=== PATIENT | male | born 1985 | race Caucasian/White ===

== ENCOUNTER → 2016-06-28 | Outpatient (CLI) | payer BC ==
[2016-06-28 15:42] VITALS: BP 143/81; PULSE 88; RESP 16; TEMP 98.3; BMI 46.3
--- NOTE | 2016-06-28 16:11 | P.HPBAR ---
Bariatric H&P - History & Physicial H&P Date: 06/28/16 History & Physicial: Visit/CC: band adj Patient initial contact: Initial weight: 149.549 kg Initial weight in pounds: 329.70 Height: 5 ft 7.5 in Initial BMI: 50.8 Last weight: Current weight: 136.134 kg Current weight in pounds: 300.00 Current BMI: 46.3 [place] body weight (based on NIH guidelines): 68.492 kg Excess body weight loss: 16.6% The patient is a 31 year-old M who presents for Bariatric Assessment. The patient is requesting a fill of his LAP-BAND. He currently is hungry. Review of Systems Constitutional: Reports as per HPI Past Medical History Past Medical History: Atrial Fibrillation, Hyperlipidemia, Hypertension, Sleep Apnea/CPAP/BIPAP Additional Past Medical History / Comment(s): HX OF HTN (NO CURRENT MEDS), SLEEP APNEA (C-PAP MACHINE), History of Any Multi-Drug Resistant Organisms: None Reported Past Surgical History: Bariatric Surgery, Cardiac Ablation Additional Past Surgical History / Comment(s): 02/28/15 gastric lap banding. Past Anesthesia/Blood Transfusion Reactions: No Reported Reaction, Motion Sickness Past Psychological History: No Psychological Hx Reported Additional Psychological History / Comment(s): . Smoking Status: Never smoker Past Alcohol Use History: Rare Past Drug Use History: None Reported - Past Family History Mother Family Medical History: Cancer Additional Family Medical History / Comment(s): LUNG CANCER-. Father Family Medical History: Hyperlipidemia, Hypertension Surgical - Exam Vital Signs Temp Pulse Resp BP 98.3 F 88 16 143/81 06/28/16 15:40 06/28/16 15:40 06/28/16 15:40 06/28/16 15:40 - General well developed, no distress - Eyes PERRL - ENT normal pinna - Respiratory normal expansion - Cardiovascular Rhythm: regular - Abdomen Abdomen: soft, non tender Bariatric Assessment & Plan Plan: Patient's lap band was adjusted. He had 0.3 mL added to his band. He currently has 7 mL in the band. He'll follow-up one month. Bariatric Checklist Checklist: Plan: Checklist: EGD: 1. Hiatal hernia: 2. H. Pylori: HgbA1c: Vitamin D: Smoking: Never smoker Primary care physician referral: Psychiatry clearance: Cardiology clearance: Sleep study: Diet journal: VTE risk score: VTE risk level: Rehab needs at discharge:
== END | disposition home or self-care (01) ==
LOC: BARWHC3 15:01
PROVIDERS: ATTEND Surgery
DX: Z48.815 Encounter for surgical aftercare following surgery on the digestive system (principal); Z68.42 Body mass index [BMI] 45.0-49.9, adult; Z98.84 Bariatric surgery status; G47.30 Sleep apnea, unspecified; Z99.89 Dependence on other enabling machines and devices
CPT/HCPCS: 99212

== ENCOUNTER 2016-07-02 09:17 | Emergency (ER) | payer BC ==
[2016-07-02 09:33] VITALS: PULSE 71; TEMP 97.6
[2016-07-02] MEDS ORDERED: ONDANSETRON 4 MG/2 ML VIAL IVP STA (09:38)
[2016-07-02] MEDS ORDERED: HYDROmorphone 1 MG/ML 1 ML SYRINGE IVP STA ×2 (09:40→10:18)
[2016-07-02] MEDS ORDERED: KETOROLAC 30 MG/ML 1 ML VIAL IVP STA (09:40)
[2016-07-02] MEDS ORDERED: SODIUM CHLORIDE 0.9% 1,000 ML IV STA ×2 (09:40)
--- NOTE | 2016-07-02 09:40 | ED ---
General Adult HPI - General Chief complaint: Abdominal Pain Stated complaint: poss kidney stones Time Seen by Provider: 07/02/16 09:32 Source: patient, RN notes reviewed Mode of arrival: ambulatory Limitations: no limitations - History of Present Illness Initial comments: Patient's 31-year-old male significant past mental history for hypertension, A. fib, who presents emergency room today with chief complaint of right-sided flank pain that began approximately 3 hours ago. Patient does admit to feeling nauseated. He does admit to pain starting in the right side of his lower back radiate around to the right front over his bladder. Patient denies any history of kidney stone states they do run in the family. Patient does admit to decreased urinary flow this morning. Denies any signs of blood. Patient denies any other complaints or associated symptoms. Patient denies any recent fever, chills, shortness of breath, chest pain, numbness or tingling, hematuria , constipation or diarrhea, headaches or visual changes, or any other complaints. - Related Data Home Medications Medication Instructions Recorded Confirmed Acetaminophen Tab [Tylenol Tab] 1,000 mg PO Q6HR PRN 01/02/16 07/02/16 Ibuprofen [Motrin] 600 mg PO TID PRN 01/02/16 07/02/16 Naproxen Sodium [Aleve] 440 mg PO DAILY PRN 01/02/16 07/02/16 Previous Rx's Medication Instructions Recorded Hydrocodone/Acetaminophen [[place] 1 each PO Q6HR PRN #20 tab 07/02/16 5-325] Ibuprofen [Motrin] 800 mg PO Q6HR PRN #30 tab 07/02/16 Ondansetron Odt [Zofran ODT] 4 mg PO Q8HR PRN #20 tab 07/02/16 Sulfamethox-Tmp 800-160Mg [Bactrim 1 tab PO Q12HR #14 tab 07/02/16 DS 800-160 mg] Tamsulosin [Flomax] 0.4 mg PO DAILY #10 cap 07/02/16 Allergies Allergy/AdvReac Type Severity Reaction Status Date / Time No Known Allergies Allergy Verified 06/28/16 18:20 Review of Systems ROS Statement: Those systems with pertinent positive or pertinent negative responses have been documented in the HPI. ROS Other: All systems not noted in ROS Statement are negative. Past Medical History Past Medical History: Atrial Fibrillation, Hyperlipidemia, Hypertension, Sleep Apnea/CPAP/BIPAP Additional Past Medical History / Comment(s): HX OF HTN (NO CURRENT MEDS), SLEEP APNEA (C-PAP MACHINE), History of Any Multi-Drug Resistant Organisms: None Reported Past Surgical History: Bariatric Surgery, Cardiac Ablation Additional Past Surgical History / Comment(s): 02/28/15 gastric lap banding. Past Anesthesia/Blood Transfusion Reactions: No Reported Reaction, Motion Sickness Past Psychological History: No Psychological Hx Reported Additional Psychological History / Comment(s): . Smoking Status: Never smoker Past Alcohol Use History: None Reported Past Drug Use History: None Reported - Past Family History Mother Family Medical History: Cancer Additional Family Medical History / Comment(s): LUNG CANCER-. Father Family Medical History: Hyperlipidemia, Hypertension General Exam - General Exam Comments Initial Comments: General: The patient is awake and alert, in moderate distress. Eye: Pupils are equal, round and reactive to light, extra-ocular movements are intact. No nystagmus. There is normal conjunctiva bilaterally. No signs of icterus. Ears, nose, mouth and throat: There are moist mucous membranes and no oral lesions. Neck: The neck is supple, there is no tenderness or JVD. Cardiovascular: There is a regular rate and rhythm. No murmur, rub or gallop is appreciated. Respiratory: Lungs are clear to auscultation, respirations are non-labored, breath sounds are equal. No wheezes, stridor, rales, or rhonchi. Gastrointestinal: Normal appearance then. Normal bowel sounds. Abdomen soft on palpation. Patient does have mild tenderness superior to go over the bladder. Mild tenderness right CVA. Musculoskeletal: Normal ROM, no tenderness. Strength 5/5. Sensation intact. Pulses equal bilaterally 2+. Neurological: A&O x 3. CN II-XII intact, There are no obvious motor or sensory deficits. Coordination appears grossly intact. Speech is normal. Skin: Skin is warm and dry and no rashes or lesions are noted. Psychiatric: Cooperative, appropriate mood & affect, normal judgment. Limitations: no limitations Course Vital Signs 07/02/16 07/02/16 09:20 10:16 Temperature 97.6 F Pulse Rate 71 Respiratory 20 Rate Blood Pressure 195/107 169/82 O2 Sat by Pulse 98 Oximetry Medical Decision Making - Medical Decision Making Patient's labs reviewed. Does show rare bacteria his urine. Large amount of blood. Patient does have urine culture pending. CT reviewed and does show a 4 mm stone on the right side. Results were discussed with patient. Patient reexamined at this time is currently resting comfortably in the stretcher. His abdomen soft on palpation. Patient will be discharged home with pain medication , antibiotics to cover for possible infection and culture pending. Advised follow-up family doctor or neurologist. Advised return to emergency room if any symptoms increase or worsen. - Lab Data Result diagrams: 07/02/16 10:10 07/02/16 10:10 Lab Results 07/02/16 07/02/16 07/02/16 Range/Units 10:10 10:10 10:10 WBC 11.9 H (3.8-10.6) k/uL RBC 5.58 (4.30-5.90) m/uL Hgb 15.7 (13.0-17.5) gm/dL Hct 47.1 (39.0-53.0) % MCV 84.4 (80.0-100.0) fL MCH 28.2 (25.0-35.0) pg MCHC 33.4 (31.0-37.0) g/dL RDW 12.7 (11.5-15.5) % Plt Count 232 (150-450) k/uL Neutrophils % 86 % Lymphocytes % 9 % Monocytes % 4 % Eosinophils % 0 % Basophils % 0 % Neutrophils # 10.2 H (1.3-7.7) k/uL Lymphocytes # 1.0 (1.0-4.8) k/uL Monocytes # 0.5 (0-1.0) k/uL Eosinophils # 0.0 (0-0.7) k/uL Basophils # 0.0 (0-0.2) k/uL Sodium 143 (137-145) mmol/L Potassium 4.4 (3.5-5.1) mmol/L Chloride 107 (98-107) mmol/L Carbon Dioxide 26 (22-30) mmol/L Anion Gap 10 mmol/L BUN 10 (9-20) mg/dL Creatinine 0.98 (0.66-1.25) mg/dL Est GFR (MDRD) Af Amer >60 (>60 ml/min/1.73 sqM) Est GFR (MDRD) Non-Af >60 (>60 ml/min/1.73 sqM) Glucose 117 H (74-99) mg/dL Calcium 9.8 (8.4-10.2) mg/dL Total Bilirubin 0.9 (0.2-1.3) mg/dL AST 55 (17-59) U/L ALT 86 H (21-72) U/L Alkaline Phosphatase 89 (38-126) U/L Total Protein 7.7 (6.3-8.2) g/dL Albumin 4.6 (3.5-5.0) g/dL Amylase 55 (30-110) U/L Lipase 49 (23-300) U/L Urine Color Yellow Urine Appearance Cloudy (Clear) Urine pH 5.5 (5.0-8.0) Ur Specific [place] 1.025 (1.001-1.035) Urine Protein 1+ H (Negative) Urine Glucose (UA) Negative (Negative) Urine Ketones Trace H (Negative) Urine Blood Large H (Negative) Urine Nitrate Negative (Negative) Urine Bilirubin Negative (Negative) Urine Urobilinogen <2.0 (<2.0) mg/dL Ur Leukocyte Esterase Negative (Negative) Urine RBC >182 H (0-5) /hpf Urine WBC 4 (0-5) /hpf Urine Bacteria Rare H (None) /hpf Urine Mucus Many H (None) /hpf Disposition Clinical Impression: Kidney stone Disposition: HOME SELF-CARE Condition: Good Instructions: Kidney Stones (ED) Additional Instructions: Please use medication as discussed. Please follow-up with family doctor or urologist in the next 2 days of symptoms have not improved. Please return to emergency room if the symptoms increase or worsen or for any other concerns. Prescriptions: Hydrocodone/Acetaminophen [[place] 5-325] 1 each PO Q6HR PRN #20 tab PRN Reason: Pain Ibuprofen [Motrin] 800 mg PO Q6HR PRN #30 tab PRN Reason: Pain Ondansetron Odt [Zofran ODT] 4 mg PO Q8HR PRN #20 tab PRN Reason: Nausea Sulfamethox-Tmp 800-160Mg [Bactrim DS 800-160 mg] 1 tab PO Q12HR #14 tab Tamsulosin [Flomax] 0.4 mg PO DAILY #10 cap Referrals: Aundrea Wadsworth MD [Primary Care Provider] - 1-2 days Brett Iglesias MD [STAFF PHYSICIAN] - 1-2 days Time of Disposition: 11:33
--- NOTE | 2016-07-02 10:16 | XR ---
Abdomen HISTORY: Pain Frontal view of the abdomen on 2 images. No previous for comparison Patient is status post lap band. Lung bases are clear. No pneumoperitoneum or bowel obstruction is ev ident. No pathologic calcification is seen. IMPRESSION: Nonobstructive bowel gas pattern
[2016-07-02 10:27] LABS: Basophils % (A) 0 %; CH 28.9; CHCM 34.4; Eosinophils % (A) 0 %; HCT 47.1 % (39.0-53.0); HDW 2.74; HGB 15.7 gm/dL (13.0-17.5); Luc % (Auto) 1; Lymphocytes % (A) 9 %; MCH 28.2 pg (25.0-35.0); MCHC 33.4 g/dL (31.0-37.0); MCV 84.4 fL (80.0-100.0); Mean Platelet Volume 7.3; Monocytes # (A) 0.5 k/uL (0-1.0); Monocytes % (A) 4 %; Neutrophils # (A) 10.2 k/uL (1.3-7.7); Neutrophils % (A) 86 %; RBC 5.58 m/uL (4.30-5.90); RDW 12.7 % (11.5-15.5); WBC 11.9 k/uL (3.8-10.6); WBC (Perox) 12.16
[2016-07-02 10:36] LABS: ALT 86 U/L (21-72); AST 55 U/L (17-59); Alkaline Phosphatase 89 U/L (38-126); Amylase 55 U/L (30-110); Anion Gap 10 mmol/L; Blood Urea Nitrogen 10 mg/dL (9-20); Calcium 9.8 mg/dL (8.4-10.2); Carbon Dioxide 26 mmol/L (22-30); Chloride 107 mmol/L (98-107); Glucose 117 mg/dL (74-99); Non-African American GFR(MDRD) >60 (>60 ml/min/1.73 sqM); Potassium 4.4 mmol/L (3.5-5.1); Sodium 143 mmol/L (137-145); Total Bilirubin 0.9 mg/dL (0.2-1.3); Total Protein 7.7 g/dL (6.3-8.2)
[2016-07-02 10:41] LABS: Appearance,Urine Cloudy (Clear); Bacteria,Urine Rare /hpf; Bilirubin,Urine Negative (Negative); Glucose,Urine (UA) Negative (Negative); Ketones,Urine Trace (Negative); Leukocyte Esterase,Urine Negative (Negative); Mucus,Urine Many /hpf; Nitrite,Urine Negative (Negative); PH, Urine 5.5 (5.0-8.0); Particle Count 11245; Protein,Urine 1+ (Negative); RBC,Urine >182 /hpf (0-5); Specific Gravity,Urine 1.025 (1.001-1.035); UA Billing (MACRO vs. MICRO) MICRO; Urobilinogen,Urine <2.0 mg/dL (<2.0); WBC,Urine 4 /hpf (0-5)
--- NOTE | 2016-07-02 11:14 | CT ---
EXAMINATION TYPE: CT abdomen pelvis wo con DATE OF EXAM: 07/02/2016 11:07 AM COMPARISON: NONE INDICATION: Patient complains of right flank pain. DLP: 1257.8 mGycm, Automated exposure control for dose reduction was used. CONTRAST: None Study performed without Oral Contrast TECHNIQUE: Axial images were obtained from above the diaphragm to the pubic rami in the axial plane a t 5 mm thick sections. Reconstructed images are reviewed on the computer in the coronal plane. FINDINGS: Limited CT sections are obtained the lung bases. The lung bases are clear. Distal esophagus is prom inent air-filled. This could be dilatation of the distal esophagus from the patient's lap band. CT ABDOMEN: Liver: Normal Spleen: Normal Pancreas: Normal Adrenal glands: The adrenal glands are normal. Gallbladder: Not identified Kidneys: No masses are evident. There is a moderate right hydronephrosis and mild proximal right hydr oureter. Distal ureter extends to the urinary bladder. Urinary bladder at the right ureterovesical j unction contains a 0.4 cm calcification. No cysts are present. Aorta: Vascular calcification is within the aorta. Inferior vena cava: Normal. CT PELVIS: Loops of bowel within the abdomen and pelvis are normal. Appendix: Normal as visualized. Urinary bladder: Decompressed with limited evaluation. Genitourinary structures: Prostate is slightly prominent Osseous structures: No suspicious lytic or sclerotic lesions. IMPRESSIONS: 1. 0.4 cm right ureterovesical junction stone with mild hydroureter. There is a mild right hydroneph rosis present.
[2016-07-02 11:45] VITALS: BP 150/71; RESP 16
== END 2016-07-02 11:45 | disposition home or self-care (01) ==
LOC: EC 09:17
DX: N13.2 Hydronephrosis with renal and ureteral calculous obstruction (principal); G47.30 Sleep apnea, unspecified; Z99.89 Dependence on other enabling machines and devices; Z84.1 Family history of disorders of kidney and ureter
CPT/HCPCS: 36415; 80053; 82150; 83690; 85025; 81001; 87086; 74000; 74176; 99284; 96374; 96375 ×2; 96376; 96361; J2405; J1885; J1170

== ENCOUNTER → 2016-07-26 | Outpatient (CLI) | payer BC ==
[2016-07-26 14:31] VITALS: BP 139/73; PULSE 81; RESP 14; TEMP 98.2; BMI 45.4
--- NOTE | 2016-07-26 14:39 | P.HPBAR ---
Bariatric H&P - History & Physicial H&P Date: 07/26/16 History & Physicial: Visit/CC: band fill Patient initial contact: Initial weight: 149.549 kg Initial weight in pounds: 329.70 Height: 5 ft 7.5 in Initial BMI: 50.8 Last weight: Current weight: 133.538 kg Current weight in pounds: 294.40 Current BMI: 45.4 [place] body weight (based on NIH guidelines): 68.492 kg Excess body weight loss: 19.7% The patient is a 31 year-old M who presents for Bariatric Assessment. The patient is hungry and requesting a fill of his LAP-BAND. Past Medical History Past Medical History: Atrial Fibrillation, Hyperlipidemia, Hypertension, Sleep Apnea/CPAP/BIPAP Additional Past Medical History / Comment(s): HX OF HTN (NO CURRENT MEDS), SLEEP APNEA (C-PAP MACHINE), kidney stone June 2016, History of Any Multi-Drug Resistant Organisms: None Reported Past Surgical History: Bariatric Surgery, Cardiac Ablation, Cholecystectomy Additional Past Surgical History / Comment(s): 02/28/15 gastric lap banding. Past Anesthesia/Blood Transfusion Reactions: No Reported Reaction, Motion Sickness Past Psychological History: No Psychological Hx Reported Additional Psychological History / Comment(s): . Smoking Status: Never smoker Past Alcohol Use History: None Reported Past Drug Use History: None Reported - Past Family History Mother Family Medical History: Cancer Additional Family Medical History / Comment(s): LUNG CANCER-. Father Family Medical History: Hyperlipidemia, Hypertension Surgical - Exam Vital Signs Temp Pulse Resp BP 98.2 F 81 14 139/73 07/26/16 14:27 07/26/16 14:27 07/26/16 14:27 07/26/16 14:27 - General well developed, no distress - Eyes PERRL - ENT normal pinna - Neck no masses - Respiratory normal expansion - Cardiovascular Rhythm: regular - Abdomen Abdomen: soft, non tender Bariatric Assessment & Plan Plan: 0.3 was added to his LAP-BAND. He currently is 2.3 in the band. He will follow -up in 4 weeks. He was able drink water without difficulty. Bariatric Checklist Checklist: Plan: Checklist: EGD: 1. Hiatal hernia: 2. H. Pylori: HgbA1c: Vitamin D: Smoking: Never smoker Primary care physician referral: sivakumar mcleod Psychiatry clearance: Cardiology clearance: Sleep study: Diet journal: VTE risk score: VTE risk level: Rehab needs at discharge:
== END | disposition home or self-care (01) ==
LOC: BARWHC3 13:54
PROVIDERS: ATTEND Surgery
DX: Z48.815 Encounter for surgical aftercare following surgery on the digestive system (principal); Z68.42 Body mass index [BMI] 45.0-49.9, adult; Z98.84 Bariatric surgery status; G47.30 Sleep apnea, unspecified; Z99.89 Dependence on other enabling machines and devices
CPT/HCPCS: 99212

== ENCOUNTER → 2016-09-08 | Outpatient (CLI) | payer BC ==
[2016-09-08 07:50] LABS: CH 29.4; HCT 45.3 % (39.0-53.0); HDW 2.78; HGB 15.1 gm/dL (13.0-17.5); MCH 28.9 pg (25.0-35.0); MCHC 33.3 g/dL (31.0-37.0); MCV 86.8 fL (80.0-100.0); Mean Platelet Volume 7.3; RBC 5.22 m/uL (4.30-5.90); WBC 7.2 k/uL (3.8-10.6)
[2016-09-08 08:03] LABS: ALT 50 U/L (21-72); AST 31 U/L (17-59); Alkaline Phosphatase 76 U/L (38-126); Anion Gap 11 mmol/L; Blood Urea Nitrogen 9 mg/dL (9-20); Calcium 10.1 mg/dL (8.4-10.2); Carbon Dioxide 27 mmol/L (22-30); Chloride 107 mmol/L (98-107); Cholesterol 205 mg/dL (<200); Glucose 91 mg/dL (74-99); HDL Cholesterol 41 mg/dL (40-60); Non-African American GFR(MDRD) >60 (>60 ml/min/1.73 sqM); Potassium 4.8 mmol/L (3.5-5.1); Sodium 145 mmol/L (137-145); Total Bilirubin 0.9 mg/dL (0.2-1.3); Total Protein 7.7 g/dL (6.3-8.2); Triglycerides 175 mg/dL (<150)
== END | disposition home or self-care (01) ==
LOC: LABWHC1 06:45
PROVIDERS: ATTEND Internal Medicine
DX: Z00.00 Encounter for general adult medical examination without abnormal findings (principal)
CPT/HCPCS: 36415; 80053; 80061; 84439; 84443; 85027

== ENCOUNTER → 2016-09-13 | Outpatient (CLI) | payer BC ==
[2016-09-13 14:31] VITALS: BP 145/71; PULSE 78; RESP 14; TEMP 98.2; BMI 44.2
--- NOTE | 2016-09-13 14:37 | P.HPBAR ---
Bariatric H&P - History & Physicial H&P Date: 09/13/16 History & Physicial: Visit/CC: band fill Patient initial contact: Initial weight: 149.549 kg Initial weight in pounds: 329.70 Height: 5 ft 7.5 in Initial BMI: 50.8 Last weight: Current weight: 130.136 kg Current weight in pounds: 286.90 Current BMI: 44.2 [place] body weight (based on NIH guidelines): 68.492 kg Excess body weight loss: 23.9% The patient is a 31 year-old M who presents for Bariatric Assessment. The patient was a safer LAP-BAND follow-up. Patient states that he has stopped drinking flavored teas. He has been drinking more water. He is actually lost approximately 8 pounds since his last visit. He still has some mild complaints of osteoarthritis in his lower extremities. Review of Systems Constitutional: Reports as per HPI Past Medical History Past Medical History: Atrial Fibrillation, Hyperlipidemia, Hypertension, Sleep Apnea/CPAP/BIPAP Additional Past Medical History / Comment(s): HX OF HTN (NO CURRENT MEDS), SLEEP APNEA (C-PAP MACHINE), kidney stone June 2016, History of Any Multi-Drug Resistant Organisms: None Reported Past Surgical History: Bariatric Surgery, Cardiac Ablation, Cholecystectomy Additional Past Surgical History / Comment(s): 02/28/15 gastric lap banding. Past Anesthesia/Blood Transfusion Reactions: No Reported Reaction, Motion Sickness Past Psychological History: No Psychological Hx Reported Additional Psychological History / Comment(s): . Smoking Status: Never smoker Past Alcohol Use History: None Reported Past Drug Use History: None Reported - Past Family History Mother Family Medical History: Cancer Additional Family Medical History / Comment(s): LUNG CANCER-. Father Family Medical History: Hyperlipidemia, Hypertension Surgical - Exam Vital Signs Temp Pulse Resp BP 98.2 F 78 14 145/71 09/13/16 14:26 09/13/16 14:26 09/13/16 14:26 09/13/16 14:26 - General well developed, no distress - Eyes PERRL - ENT normal pinna - Neck no masses - Respiratory normal expansion - Cardiovascular Rhythm: regular - Abdomen Abdomen: soft, non tender Bariatric Assessment & Plan Plan: Status post lap band surgery. Patient is doing well. He's had good weight loss last month. The patient follow up in 1 month. His arthritis symptoms with observed.. Bariatric Checklist Checklist: Plan: Checklist: EGD: 1. Hiatal hernia: 2. H. Pylori: HgbA1c: Vitamin D: Smoking: Never smoker Primary care physician referral: sivakumar mcleod Psychiatry clearance: Cardiology clearance: Sleep study: Diet journal: VTE risk score: VTE risk level: Rehab needs at discharge:
== END | disposition home or self-care (01) ==
LOC: BARWHC3 13:35
PROVIDERS: ATTEND Surgery
DX: Z09 Encounter for follow-up examination after completed treatment for conditions other than malignant neoplasm (principal); I48.91 Unspecified atrial fibrillation; E78.5 Hyperlipidemia, unspecified; I10 Essential (primary) hypertension; G47.30 Sleep apnea, unspecified; Z98.84 Bariatric surgery status
CPT/HCPCS: 99212

== ENCOUNTER → 2016-10-11 | Outpatient (CLI) | payer BC ==
[2016-10-11 14:15] VITALS: BP 144/76; PULSE 84; RESP 16; TEMP 98.3; BMI 44.5
--- NOTE | 2016-10-11 17:02 | P.HPBAR ---
Bariatric H&P - History & Physicial H&P Date: 10/11/16 History & Physicial: Visit/CC: lap band Patient initial contact: Initial weight: 149.549 kg Initial weight in pounds: 329.70 Height: 5 ft 7.5 in Initial BMI: 50.8 Last weight: Current weight: 130.952 kg Current weight in pounds: 288.70 Current BMI: 44.5 [place] body weight (based on NIH guidelines): 68.492 kg Excess body weight loss: 22.9% The patient is a 31 year-old M who presents for Bariatric Assessment. Patient presents today for lab band follow. He is requesting a fill of his LAP-BAND. He is hungry. Past Medical History Past Medical History: Atrial Fibrillation, Hyperlipidemia, Hypertension, Sleep Apnea/CPAP/BIPAP Additional Past Medical History / Comment(s): HX OF HTN (NO CURRENT MEDS), SLEEP APNEA (C-PAP MACHINE), kidney stone June 2016, History of Any Multi-Drug Resistant Organisms: None Reported Past Surgical History: Bariatric Surgery, Cardiac Ablation, Cholecystectomy Additional Past Surgical History / Comment(s): 02/28/15 gastric lap banding. Past Anesthesia/Blood Transfusion Reactions: No Reported Reaction, Motion Sickness Past Psychological History: No Psychological Hx Reported Additional Psychological History / Comment(s): . Smoking Status: Never smoker Past Alcohol Use History: None Reported Past Drug Use History: None Reported - Past Family History Mother Family Medical History: Cancer Additional Family Medical History / Comment(s): LUNG CANCER-. Father Family Medical History: Hyperlipidemia, Hypertension Surgical - Exam Vital Signs Temp Pulse Resp BP 98.3 F 84 16 144/76 10/11/16 14:12 10/11/16 14:12 10/11/16 14:12 10/11/16 14:12 - General well developed, no distress - Eyes PERRL - ENT normal pinna - Neck no masses - Respiratory normal expansion - Cardiovascular Rhythm: regular - Abdomen Abdomen: soft, non tender Bariatric Assessment & Plan Plan: The patient LAP-BAND was adjusted. 0.3 mL added to his LAP-BAND. He currently is 7.6 mL in the band. He'll follow-up one month. Bariatric Checklist Checklist: Plan: Checklist: EGD: 1. Hiatal hernia: 2. H. Pylori: HgbA1c: Vitamin D: Smoking: Never smoker Primary care physician referral: sivakumar mcleod Psychiatry clearance: Cardiology clearance: Sleep study: Diet journal: VTE risk score: VTE risk level: Rehab needs at discharge:
== END | disposition home or self-care (01) ==
LOC: BARWHC3 13:45
PROVIDERS: ATTEND Surgery
DX: Z09 Encounter for follow-up examination after completed treatment for conditions other than malignant neoplasm (principal); I48.91 Unspecified atrial fibrillation; E78.5 Hyperlipidemia, unspecified; I10 Essential (primary) hypertension; Z98.84 Bariatric surgery status
CPT/HCPCS: 99212

== ENCOUNTER → 2016-10-13 | Outpatient (CLI) | payer BC ==
[2016-10-13 13:09] VITALS: BP 141/66; PULSE 88; TEMP 98.7; BMI 44.4
--- NOTE | 2016-10-13 13:38 | P.HPBAR ---
Bariatric H&P - History & Physicial H&P Date: 10/13/16 History & Physicial: Visit/CC: lap band fill Patient initial contact: Initial weight: 149.549 kg Initial weight in pounds: 329.70 Height: 5 ft 7.5 in Initial BMI: 50.8 Last weight: Current weight: 130.725 kg Current weight in pounds: 288.20 Current BMI: 44.4 [place] body weight (based on NIH guidelines): 68.492 kg Excess body weight loss: 23.2% The patient is a 31 year-old M who presents for Bariatric Assessment. Patient' s complaints of dysphagia. His LAP-BAND was adjusted on Tuesday. His LAP-BAND was too tight. He's had trouble with dinner and solid foods. Past Medical History Past Medical History: Atrial Fibrillation, Hyperlipidemia, Hypertension, Sleep Apnea/CPAP/BIPAP Additional Past Medical History / Comment(s): HX OF HTN (NO CURRENT MEDS), SLEEP APNEA (C-PAP MACHINE), kidney stone June 2016, History of Any Multi-Drug Resistant Organisms: None Reported Past Surgical History: Bariatric Surgery, Cardiac Ablation, Cholecystectomy Additional Past Surgical History / Comment(s): 02/28/15 gastric lap banding. Past Anesthesia/Blood Transfusion Reactions: No Reported Reaction, Motion Sickness Past Psychological History: No Psychological Hx Reported Additional Psychological History / Comment(s): . Smoking Status: Never smoker Past Alcohol Use History: None Reported Past Drug Use History: None Reported - Past Family History Mother Family Medical History: Cancer Additional Family Medical History / Comment(s): LUNG CANCER-. Father Family Medical History: Hyperlipidemia, Hypertension Surgical - Exam Vital Signs Temp Pulse BP 98.7 F 88 141/66 10/13/16 13:05 10/13/16 13:05 10/13/16 13:05 - General well developed - Eyes PERRL - ENT normal pinna, normal nares - Cardiovascular Rhythm: regular - Abdomen Abdomen: soft, non tender Bariatric Assessment & Plan Plan: Dysphagia symptoms LAP-BAND. Patient LAP-BAND was adjusted. He had 1.6 mL removed from his band. He now has 6 mL in the band. He'll follow-up in 2 weeks. Bariatric Checklist Checklist: Plan: Checklist: EGD: 1. Hiatal hernia: 2. H. Pylori: HgbA1c: Vitamin D: Smoking: Never smoker Primary care physician referral: sivakumar mcleod Psychiatry clearance: Cardiology clearance: Sleep study: Diet journal: VTE risk score: VTE risk level: Rehab needs at discharge:
== END ==
LOC: BARWHC3 12:21
PROVIDERS: ATTEND Surgery
DX: Z48.815 Encounter for surgical aftercare following surgery on the digestive system (principal); Z98.84 Bariatric surgery status; R13.10 Dysphagia, unspecified
CPT/HCPCS: 99213

== ENCOUNTER → 2016-10-25 | Outpatient (CLI) | payer BC ==
[2016-10-25 15:33] VITALS: BP 143/77; PULSE 74; RESP 16; TEMP 98.2; BMI 44.0
--- NOTE | 2016-11-08 16:53 | P.HPBAR ---
Bariatric H&P - History & Physicial H&P Date: 10/25/16 History & Physicial: Visit/CC: band adj Patient initial contact: Initial weight: 149.549 kg Initial weight in pounds: 329.70 Height: 5 ft 7.5 in Initial BMI: 50.8 Last weight: Current weight: 129.444 kg Current weight in pounds: 285.00 Current BMI: 44.0 [place] body weight (based on NIH guidelines): 68.492 kg Excess body weight loss: 25.0% The patient is a 31 year-old M who presents for Bariatric Assessment. Patient presents today for lab band follow up. He he thinks he is in a good zone. states her GERD symptoms improved. Past Medical History Past Medical History: Atrial Fibrillation, Hyperlipidemia, Hypertension, Sleep Apnea/CPAP/BIPAP Additional Past Medical History / Comment(s): HX OF HTN (NO CURRENT MEDS), SLEEP APNEA (C-PAP MACHINE), kidney stone June 2016, History of Any Multi-Drug Resistant Organisms: None Reported Past Surgical History: Bariatric Surgery, Cardiac Ablation, Cholecystectomy Additional Past Surgical History / Comment(s): 02/28/15 gastric lap banding. Past Anesthesia/Blood Transfusion Reactions: No Reported Reaction, Motion Sickness Past Psychological History: No Psychological Hx Reported Additional Psychological History / Comment(s): . Smoking Status: Never smoker - Past Family History Mother Family Medical History: Cancer Additional Family Medical History / Comment(s): LUNG CANCER-. Father Family Medical History: Hyperlipidemia, Hypertension Surgical - Exam Vital Signs Temp Pulse Resp BP 98.2 F 74 16 143/77 10/25/16 15:28 10/25/16 15:28 10/25/16 15:28 10/25/16 15:28 - General well developed - Abdomen Abdomen: soft, non tender Bariatric Assessment & Plan Plan: Patient's GERD symptoms improve. He'll be observed. His LAP-BAND was not adjusted. Patient follow-up in one month. Bariatric Checklist Checklist: Plan: Checklist: EGD: 1. Hiatal hernia: 2. H. Pylori: HgbA1c: Vitamin D: Smoking: Never smoker Primary care physician referral: sivakumar mcleod Psychiatry clearance: Cardiology clearance: Sleep study: Diet journal: VTE risk score: VTE risk level: Rehab needs at discharge:
== END | disposition home or self-care (01) ==
LOC: BARWHC3 15:12
PROVIDERS: ATTEND Surgery
DX: Z09 Encounter for follow-up examination after completed treatment for conditions other than malignant neoplasm (principal); I48.91 Unspecified atrial fibrillation; E78.5 Hyperlipidemia, unspecified; I10 Essential (primary) hypertension; Z98.84 Bariatric surgery status
CPT/HCPCS: 99211

== ENCOUNTER → 2016-11-22 | Outpatient (CLI) | payer BC ==
[2016-11-22 15:55] VITALS: BP 156/79; PULSE 74; RESP 16; TEMP 98.7; BMI 46.2
--- NOTE | 2016-11-22 16:25 | P.HPBAR ---
Bariatric H&P - History & Physicial H&P Date: 11/22/16 History & Physicial: Visit/CC: Band Adj Patient initial contact: Initial weight: 149.549 kg Initial weight in pounds: 329.70 Height: 5 ft 7.5 in Initial BMI: 50.8 Last weight: 286 Current weight: 135.879 kg Current weight in pounds: 299.00 Current BMI: 46.2 [place] body weight (based on NIH guidelines): 68.492 kg Excess body weight loss: 17.1% The patient is a 31 year-old M who presents for Bariatric Assessment. The patient has complaints of hunger. He is gained 14 pounds since his last visit. He currently weighs 290 pounds who is 286 pounds at his last visit. The patient presents at fill Past Medical History Past Medical History: Atrial Fibrillation, Hyperlipidemia, Hypertension, Sleep Apnea/CPAP/BIPAP Additional Past Medical History / Comment(s): HX OF HTN (NO CURRENT MEDS), SLEEP APNEA (C-PAP MACHINE), kidney stone June 2016, History of Any Multi-Drug Resistant Organisms: None Reported Past Surgical History: Bariatric Surgery, Cardiac Ablation, Cholecystectomy Additional Past Surgical History / Comment(s): 02/28/15 gastric lap banding. Past Anesthesia/Blood Transfusion Reactions: No Reported Reaction, Motion Sickness Past Psychological History: No Psychological Hx Reported Additional Psychological History / Comment(s): . Smoking Status: Never smoker Past Alcohol Use History: None Reported Past Drug Use History: None Reported - Past Family History Mother Family Medical History: Cancer Additional Family Medical History / Comment(s): LUNG CANCER-. Father Family Medical History: Hyperlipidemia, Hypertension Surgical - Exam Vital Signs Temp Pulse Resp BP 98.7 F 74 16 156/79 11/22/16 15:52 11/22/16 15:52 11/22/16 15:52 11/22/16 15:52 - General well developed, no distress - Eyes PERRL - Abdomen Abdomen: soft, non tender Bariatric Assessment & Plan Plan: The patient's lap band was adjusted. 1 mL added to his band. He currently has 7 mL in the band. He was ill drink water without difficulty. He'll follow up 1 month. Bariatric Checklist Checklist: Plan: Checklist: EGD: 1. Hiatal hernia: 2. H. Pylori: HgbA1c: Vitamin D: Smoking: Never smoker Primary care physician referral: sivakumar mcleod Psychiatry clearance: Cardiology clearance: Sleep study: Diet journal: VTE risk score: VTE risk level: Rehab needs at discharge:
== END | disposition home or self-care (01) ==
LOC: BARWHC3 15:20
PROVIDERS: ATTEND Surgery
DX: Z48.815 Encounter for surgical aftercare following surgery on the digestive system (principal); I48.91 Unspecified atrial fibrillation; E78.5 Hyperlipidemia, unspecified; I10 Essential (primary) hypertension; Z98.84 Bariatric surgery status
CPT/HCPCS: 99212

== ENCOUNTER 2016-12-03 14:34 | Emergency (ER) | payer BC ==
--- NOTE | 2016-12-03 16:01 | US ---
EXAMINATION TYPE: US venous doppler duplex LE RT DATE OF EXAM: 12/03/2016 3:45 PM COMPARISON: NONE CLINICAL HISTORY: Pain. right leg red line with edema SIDE PERFORMED: Right TECHNIQUE: The lower extremity deep venous system is examined utilizing real time linear array sonog cierra with graded compression, doppler sonography and color-flow sonography. VESSELS IMAGED: External Iliac Vein (EIV) Common Femoral Vein Deep Femoral Vein Greater Saphenous Vein * Femoral Vein Popliteal Vein Small Saphenous Vein * Proximal Calf Veins (* superficial vessels) Right Leg: Negative for DVT IMPRESSION: Grayscale, color doppler, spectral doppler imaging performed of the deep veins of the lo wer extremities. There is normal flow, compressibility, vascular waveforms bilaterally. No evident deep venous thrombosis at or above the right knee.
--- NOTE | 2016-12-03 16:02 | ED ---
Lower Extremity Injury HPI - General Chief Complaint: Extremity Injury, Lower Stated Complaint: R Leg Pain Time Seen by Provider: 12/03/16 14:48 Source: patient, RN notes reviewed, old records reviewed Mode of arrival: ambulatory Limitations: no limitations - History of Present Illness Initial Comments: This is a 31-year-old male presenting to emergency Department chief complaint of a right lower leg swelling and area of redness streaking up the leg for the past 3 days. Patient reports original started with some pain in his feet and toes. He denies any puncture wounds or concern for infection. He denies any fever or chills. He reports he has a dull ache radiating up the leg into his groin. He states that he has a history of A. fib which was treated with cardiac ablation. He states that he has no chest pain or shortness of breath. Denies any other associated symptoms. He denies any trauma to the leg, or abnormal movements to cause the pain. - Related Data Previous Rx's Medication Instructions Recorded Cephalexin [Keflex] 500 mg PO Q6HR #40 cap 12/03/16 Sulfamethox-Tmp 800-160Mg [Bactrim 1 tab PO Q12HR #20 tab 12/03/16 DS 800-160 mg] Allergies Allergy/AdvReac Type Severity Reaction Status Date / Time No Known Allergies Allergy Verified 11/25/16 13:27 Review of Systems ROS Statement: Those systems with pertinent positive or pertinent negative responses have been documented in the HPI. ROS Other: All systems not noted in ROS Statement are negative. Past Medical History Past Medical History: Atrial Fibrillation, Hyperlipidemia, Hypertension, Sleep Apnea/CPAP/BIPAP Additional Past Medical History / Comment(s): HX OF HTN (NO CURRENT MEDS), SLEEP APNEA (C-PAP MACHINE), kidney stone June 2016, History of Any Multi-Drug Resistant Organisms: None Reported Past Surgical History: Bariatric Surgery, Cardiac Ablation, Cholecystectomy Additional Past Surgical History / Comment(s): 02/28/15 gastric lap banding. Past Anesthesia/Blood Transfusion Reactions: No Reported Reaction, Motion Sickness Past Psychological History: No Psychological Hx Reported Smoking Status: Never smoker Past Alcohol Use History: None Reported Past Drug Use History: None Reported - Past Family History Mother Family Medical History: Cancer Additional Family Medical History / Comment(s): LUNG CANCER-. Father Family Medical History: Hyperlipidemia, Hypertension General Exam - General Exam Comments Initial Comments: Well-appearing 31-year-old male. No acute distress. Limitations: no limitations General appearance: alert, in no apparent distress Head exam: Present: atraumatic, normocephalic, normal inspection Eye exam: Present: normal appearance, PERRL, EOMI. Absent: scleral icterus, conjunctival injection, periorbital swelling ENT exam: Present: normal exam, mucous membranes moist Neck exam: Present: normal inspection. Absent: tenderness, meningismus, lymphadenopathy Respiratory exam: Present: normal lung sounds bilaterally. Absent: respiratory distress, wheezes, rales, rhonchi, stridor Cardiovascular Exam: Present: regular rate, normal rhythm, normal heart sounds. Absent: systolic murmur, diastolic murmur, rubs, gallop, clicks GI/Abdominal exam: Present: soft, normal bowel sounds. Absent: distended, tenderness, guarding, rebound, rigid Extremities exam: Present: normal inspection, full ROM, normal capillary refill. Absent: tenderness, pedal edema, joint swelling, calf tenderness Right Upper Leg exam: Present: normal inspection, full ROM Knee exam: Present: normal inspection, full ROM Lower Leg exam: Present: erythema (superficial erythema over medial lower leg extending to top of ankle.). Absent: normal inspection Ankle exam: Present: normal inspection, full ROM Foot/Toe exam: Present: normal inspection, full ROM Neurovascular tendon exam: Present: no vascular compromise, pulse deficit Back exam: Present: normal inspection Neurological exam: Present: alert, oriented X3, CN II-XII intact Psychiatric exam: Present: normal affect, normal mood Skin exam: Present: warm, dry, intact, normal color. Absent: rash Course Vital Signs 12/03/16 12/03/16 14:43 16:25 Temperature 97.8 F 97.7 F Pulse Rate 96 89 Respiratory 18 17 Rate Blood Pressure 181/86 164/79 O2 Sat by Pulse 98 99 Oximetry Medical Decision Making - Medical Decision Making This is a 31-year-old male presenting to emergency Department chief complaint of a right lower leg swelling and area of redness streaking up the leg for the past 3 days. Patient reports original started with some pain in his feet and toes. He denies any puncture wounds or concern for infection. He denies any fever or chills. He reports he has a dull ache radiating up the leg into his groin. Patient recieved US which was negative for DVT. Discussed case with Dr. Tobias, he also examined the patient. It appears patient has a superficial phlebitis over saphenous vein. Patient will be placed on Keflex and BActrim for double coverage. Discussed close follow up with PCP on Tuesday, and returning if the area of redness and swelling becomes worse. Patient advised to use motrin and tylenol for pain. REturn parameters discussed. - Radiology Data Radiology results: report reviewed US Negative for dvt. Disposition Clinical Impression: Phlebitis of right leg Disposition: HOME SELF-CARE Condition: Good Instructions: Superficial Thrombophlebitis (ED) Additional Instructions: Advised to do warm compresses over the area. Take Motrin for pain. Take the antibiotics as prescribed. Return to the emergency department if any alarming signs or symptoms occur. Prescriptions: Cephalexin [Keflex] 500 mg PO Q6HR #40 cap Sulfamethox-Tmp 800-160Mg [Bactrim DS 800-160 mg] 1 tab PO Q12HR #20 tab Referrals: Aundrea Wadsworth MD [Primary Care Provider] - 1-2 days Time of Disposition: 16:13
[2016-12-03] MEDS ORDERED: CEPHALEXIN 500MG STARTER PACK 4 CAP BTL PO STA (16:13)
[2016-12-03] MEDS ORDERED: SULFAMETH-TMP DS STARTER PACK 2 TAB BTL PO STA (16:13)
[2016-12-03 16:27] VITALS: BP 164/79; PULSE 89; RESP 17; TEMP 97.7
== END 2016-12-03 16:25 | disposition home or self-care (01) ==
LOC: EC 14:34
DX: I80.01 Phlebitis and thrombophlebitis of superficial vessels of right lower extremity (principal)
CPT/HCPCS: 99284

== ENCOUNTER → 2016-12-13 | Outpatient (CLI) | payer BC ==
[2016-12-13 16:46] VITALS: BP 152/82; PULSE 87; RESP 16; TEMP 98.3; BMI 46.5
--- NOTE | 2017-01-07 13:43 | P.HPBAR ---
Bariatric H&P - History & Physicial H&P Date: 12/13/16 History & Physicial: Visit/CC: band fill Patient initial contact: Initial weight: 149.549 kg Initial weight in pounds: 329.70 Height: 5 ft 7.5 in Initial BMI: 50.8 Last weight: Current weight: 136.803 kg Current weight in pounds: 301.60 Current BMI: 46.5 [place] body weight (based on NIH guidelines): 68.492 kg Excess body weight loss: 15.7% The patient is a 31 year-old M who presents for Bariatric Assessment. the patient presents today for lab band follow. He is requesting a fill of his LAP- BAND. He currently feels hungry. Past Medical History Past Medical History: Atrial Fibrillation, Hyperlipidemia, Hypertension, Sleep Apnea/CPAP/BIPAP Additional Past Medical History / Comment(s): HX OF HTN (NO CURRENT MEDS), SLEEP APNEA (C-PAP MACHINE), kidney stone June 2016, History of Any Multi-Drug Resistant Organisms: None Reported Past Surgical History: Bariatric Surgery, Cardiac Ablation, Cholecystectomy Additional Past Surgical History / Comment(s): 02/28/15 gastric lap banding. Past Anesthesia/Blood Transfusion Reactions: No Reported Reaction, Motion Sickness Past Psychological History: No Psychological Hx Reported Additional Psychological History / Comment(s): . Smoking Status: Never smoker Past Alcohol Use History: None Reported Past Drug Use History: None Reported - Past Family History Mother Family Medical History: Cancer Additional Family Medical History / Comment(s): LUNG CANCER-. Father Family Medical History: Hyperlipidemia, Hypertension Surgical - Exam Vital Signs Temp Pulse Resp BP 98.3 F 87 16 152/82 12/13/16 16:36 12/13/16 16:36 12/13/16 16:36 12/13/16 16:36 - General well developed, no distress - Eyes PERRL - Abdomen Abdomen: soft, non tender Bariatric Assessment & Plan Plan: The patient LAP-BAND was adjusted. 0.3 mL was added to the band. He currently has 7.3 mL in the band. He will follow-up in one month. Bariatric Checklist Checklist: Plan: Checklist: EGD: 1. Hiatal hernia: 2. H. Pylori: HgbA1c: Vitamin D: Smoking: Never smoker Primary care physician referral: sivakumar mcleod Psychiatry clearance: Cardiology clearance: Sleep study: Diet journal: VTE risk score: VTE risk level: Rehab needs at discharge:
== END | disposition home or self-care (01) ==
LOC: BARWHC3 16:20
PROVIDERS: ATTEND Surgery
DX: Z48.815 Encounter for surgical aftercare following surgery on the digestive system (principal); Z98.84 Bariatric surgery status
CPT/HCPCS: 99212

== ENCOUNTER → 2017-01-10 | Outpatient (CLI) | payer BC ==
[2017-01-10 16:24] VITALS: BP 147/71; PULSE 91; RESP 16; TEMP 98.3; BMI 46.6
--- NOTE | 2017-01-10 16:42 | P.HPBAR ---
Bariatric H&P - History & Physicial H&P Date: 01/10/17 History & Physicial: Visit/CC: band adj Patient initial contact: Initial weight: 149.549 kg Initial weight in pounds: 329.70 Height: 5 ft 7.5 in Initial BMI: 50.8 Last weight: Current weight: 137.098 kg Current weight in pounds: 302.00 Current BMI: 46.6 [place] body weight (based on NIH guidelines): 68.492 kg Excess body weight loss: 15.5% The patient is a 31 year-old M who presents for Bariatric Assessment. The patient is requesting a fill of his LAP-BAND. He currently feels hungry Past Medical History Past Medical History: Atrial Fibrillation, Hyperlipidemia, Hypertension, Sleep Apnea/CPAP/BIPAP Additional Past Medical History / Comment(s): HX OF HTN (NO CURRENT MEDS), SLEEP APNEA (C-PAP MACHINE), kidney stone June 2016, History of Any Multi-Drug Resistant Organisms: None Reported Past Surgical History: Bariatric Surgery, Cardiac Ablation, Cholecystectomy Additional Past Surgical History / Comment(s): 02/28/15 gastric lap banding. Past Anesthesia/Blood Transfusion Reactions: No Reported Reaction, Motion Sickness Past Psychological History: No Psychological Hx Reported Additional Psychological History / Comment(s): . Smoking Status: Never smoker Past Alcohol Use History: None Reported Past Drug Use History: None Reported - Past Family History Mother Family Medical History: Cancer Additional Family Medical History / Comment(s): LUNG CANCER-. Father Family Medical History: Hyperlipidemia, Hypertension Surgical - Exam Vital Signs Temp Pulse Resp BP 98.3 F 91 16 147/71 01/10/17 16:22 01/10/17 16:22 01/10/17 16:22 01/10/17 16:22 - General well developed, no distress - Abdomen Abdomen: soft, non tender Bariatric Assessment & Plan Plan: The patient's lap band was adjusted. 0.5 mL was added to his band. He was ill drink water without difficulty. He'll follow-up in one month. Bariatric Checklist Checklist: Plan: Checklist: EGD: 1. Hiatal hernia: 2. H. Pylori: HgbA1c: Vitamin D: Smoking: Never smoker Primary care physician referral: sivakumar mcleod Psychiatry clearance: Cardiology clearance: Sleep study: Diet journal: VTE risk score: VTE risk level: Rehab needs at discharge:
== END | disposition home or self-care (01) ==
LOC: BARWHC3 15:56
PROVIDERS: ATTEND Surgery
DX: Z48.815 Encounter for surgical aftercare following surgery on the digestive system (principal); Z98.84 Bariatric surgery status
CPT/HCPCS: 99212

== ENCOUNTER → 2017-01-31 | Outpatient (CLI) | payer BC ==
--- NOTE | 2017-01-31 16:08 | P.HPBAR ---
Bariatric H&P - History & Physicial H&P Date: 01/31/17 History & Physicial: Visit/CC: Patient initial contact: Initial weight: 149.549 kg Initial weight in pounds: Height: Initial BMI: Last weight: Current weight: Current weight in pounds: Current BMI: [place] body weight (based on NIH guidelines): Excess body weight loss: The patient is a 31 year-old M who presents for Bariatric Assessment. Patient presents today for lab band follow up. He currently feels hungry. Is requesting a fill. Past Medical History Past Medical History: Atrial Fibrillation, Hyperlipidemia, Hypertension, Sleep Apnea/CPAP/BIPAP Additional Past Medical History / Comment(s): HX OF HTN (NO CURRENT MEDS), SLEEP APNEA (C-PAP MACHINE), kidney stone June 2016, History of Any Multi-Drug Resistant Organisms: None Reported Past Surgical History: Bariatric Surgery, Cardiac Ablation, Cholecystectomy Additional Past Surgical History / Comment(s): 02/28/15 gastric lap banding. Past Anesthesia/Blood Transfusion Reactions: No Reported Reaction, Motion Sickness Past Psychological History: No Psychological Hx Reported Additional Psychological History / Comment(s): . Smoking Status: Never smoker Past Alcohol Use History: None Reported Past Drug Use History: None Reported - Past Family History Mother Family Medical History: Cancer Additional Family Medical History / Comment(s): LUNG CANCER-. Father Family Medical History: Hyperlipidemia, Hypertension Surgical - Exam - General well developed, no distress - Eyes PERRL - ENT normal pinna - Neck no masses - Respiratory normal expansion - Abdomen Abdomen: soft, non tender Bariatric Assessment & Plan Plan: The patient's lap band was adjusted. 0.5 mL was added to the band. He currently has 8.3 mL in the band. He is ill drink water without difficulty. Bariatric Checklist Checklist: Plan: Checklist: EGD: 1. Hiatal hernia: 2. H. Pylori: HgbA1c: Vitamin D: Smoking: Never smoker Primary care physician referral: sivakumar mcleod Psychiatry clearance: Cardiology clearance: Sleep study: Diet journal: VTE risk score: VTE risk level: Rehab needs at discharge:
[2017-01-31 16:11] VITALS: BP 160/71; PULSE 82; RESP 16; TEMP 98.6; BMI 46.5
== END | disposition home or self-care (01) ==
LOC: BARWHC3 16:02
PROVIDERS: ATTEND Surgery
DX: Z48.815 Encounter for surgical aftercare following surgery on the digestive system (principal); Z98.84 Bariatric surgery status
CPT/HCPCS: 99212

== ENCOUNTER → 2017-02-01 | Outpatient (CLI) | payer BC ==
--- NOTE | 2017-02-01 09:23 | P.HPBAR ---
Bariatric H&P - History & Physicial H&P Date: 02/01/17 History & Physicial: Visit/CC: Patient initial contact: Initial weight: 149.549 kg Initial weight in pounds: Height: Initial BMI: Last weight: Current weight: Current weight in pounds: Current BMI: [place] body weight (based on NIH guidelines): Excess body weight loss: The patient is a 31 year-old M who presents for Bariatric Assessment. The patient presents today for her LAP-BAND follow-up. He had a fill yesterday. He has complaints of dysphagia. He is requesting fluid removed. Past Medical History Past Medical History: Atrial Fibrillation, Hyperlipidemia, Hypertension, Sleep Apnea/CPAP/BIPAP Additional Past Medical History / Comment(s): HX OF HTN (NO CURRENT MEDS), SLEEP APNEA (C-PAP MACHINE), kidney stone June 2016, History of Any Multi-Drug Resistant Organisms: None Reported Past Surgical History: Bariatric Surgery, Cardiac Ablation, Cholecystectomy Additional Past Surgical History / Comment(s): 02/28/15 gastric lap banding. Past Anesthesia/Blood Transfusion Reactions: No Reported Reaction, Motion Sickness Past Psychological History: No Psychological Hx Reported Additional Psychological History / Comment(s): . Smoking Status: Never smoker Past Alcohol Use History: None Reported Past Drug Use History: None Reported - Past Family History Mother Family Medical History: Cancer Additional Family Medical History / Comment(s): LUNG CANCER-. Father Family Medical History: Hyperlipidemia, Hypertension Surgical - Exam - General well developed, no distress - Eyes PERRL - Abdomen Abdomen: soft, non tender Bariatric Assessment & Plan Plan: The patient's lap band was adjusted. 0.5 mL was removed from his band. There is currently 7.8 mL in the band. A follow-up in approximately 2 weeks for recheck. Bariatric Checklist Checklist: Plan: Checklist: EGD: 1. Hiatal hernia: 2. H. Pylori: HgbA1c: Vitamin D: Smoking: Never smoker Primary care physician referral: sivakumar mcleod Psychiatry clearance: Cardiology clearance: Sleep study: Diet journal: VTE risk score: VTE risk level: Rehab needs at discharge:
[2017-02-01 09:30] VITALS: BP 159/82; PULSE 74; TEMP 98.2; BMI 45.8
== END | disposition home or self-care (01) ==
LOC: BARWHC3 09:02
PROVIDERS: ATTEND Surgery
DX: Z48.815 Encounter for surgical aftercare following surgery on the digestive system (principal); Z98.84 Bariatric surgery status
CPT/HCPCS: 99212

== ENCOUNTER → 2017-02-14 | Outpatient (CLI) | payer BC ==
[2017-02-14 15:35] VITALS: BP 144/90; PULSE 76; RESP 16; TEMP 98.7; BMI 46.6
--- NOTE | 2017-02-14 15:48 | P.HPBAR ---
Bariatric H&P - History & Physicial H&P Date: 02/14/17 History & Physicial: Visit/CC: band adj Patient initial contact: Initial weight: 149.549 kg Initial weight in pounds: 329.70 Height: 5 ft 7.5 in Initial BMI: 50.8 Last weight: Current weight: 137.212 kg Current weight in pounds: 302.00 Current BMI: 46.6 [place] body weight (based on NIH guidelines): 68.492 kg Excess body weight loss: 15.5% The patient is a 31 year-old M who presents for Bariatric Assessment. Patient is requesting a fill of his LAP-BAND. He currently feels hungry. Past Medical History Past Medical History: Atrial Fibrillation, Hyperlipidemia, Hypertension, Sleep Apnea/CPAP/BIPAP Additional Past Medical History / Comment(s): HX OF HTN (NO CURRENT MEDS), SLEEP APNEA (C-PAP MACHINE), kidney stone June 2016, History of Any Multi-Drug Resistant Organisms: None Reported Past Surgical History: Bariatric Surgery, Cardiac Ablation, Cholecystectomy Additional Past Surgical History / Comment(s): 02/28/15 gastric lap banding. Past Anesthesia/Blood Transfusion Reactions: No Reported Reaction, Motion Sickness Past Psychological History: No Psychological Hx Reported Additional Psychological History / Comment(s): . Smoking Status: Never smoker Past Alcohol Use History: None Reported Past Drug Use History: None Reported - Past Family History Mother Family Medical History: Cancer Additional Family Medical History / Comment(s): LUNG CANCER-. Father Family Medical History: Hyperlipidemia, Hypertension Surgical - Exam Vital Signs Temp Pulse Resp BP 98.7 F 76 16 144/90 02/14/17 15:33 02/14/17 15:33 02/14/17 15:33 02/14/17 15:33 - General well developed, no distress - Eyes PERRL - ENT normal pinna - Neck no masses - Respiratory normal expansion - Cardiovascular Rhythm: regular - Abdomen Abdomen: soft, non tender Bariatric Assessment & Plan Plan: The patient LAP-BAND was adjusted. 0.2 mL added to his band. He was ill drink water without difficulty. He'll follow-up in one month. Bariatric Checklist Checklist: Plan: Checklist: EGD: 1. Hiatal hernia: 2. H. Pylori: HgbA1c: Vitamin D: Smoking: Never smoker Primary care physician referral: sivakumar mcleod Psychiatry clearance: Cardiology clearance: Sleep study: Diet journal: VTE risk score: VTE risk level: Rehab needs at discharge:
== END | disposition home or self-care (01) ==
LOC: BARWHC3 15:15
PROVIDERS: ATTEND Surgery
DX: Z09 Encounter for follow-up examination after completed treatment for conditions other than malignant neoplasm (principal); I48.91 Unspecified atrial fibrillation; E78.5 Hyperlipidemia, unspecified; I10 Essential (primary) hypertension; Z98.84 Bariatric surgery status
CPT/HCPCS: 99212

== ENCOUNTER → 2017-03-21 | Outpatient (CLI) | payer BC ==
[2017-03-21 14:41] VITALS: BP 146/93; PULSE 94; RESP 16; TEMP 99.6; BMI 47.0
--- NOTE | 2017-03-21 16:31 | P.HPBAR ---
Bariatric H&P - History & Physicial H&P Date: 03/21/17 History & Physicial: Visit/CC: band adj Patient initial contact: Initial weight: 149.549 kg Initial weight in pounds: 329.70 Height: 5 ft 7.5 in Initial BMI: 50.8 Last weight: Current weight: 138.062 kg Current weight in pounds: 304.00 Current BMI: 47.0 [place] body weight (based on NIH guidelines): 68.492 kg Excess body weight loss: 14.3% The patient is a 31 year-old M who presents for Bariatric Assessment. Patient is requesting a fill of his LAP-BAND. He currently feels hungry. Past Medical History Past Medical History: Atrial Fibrillation, Hyperlipidemia, Hypertension, Sleep Apnea/CPAP/BIPAP Additional Past Medical History / Comment(s): HX OF HTN (NO CURRENT MEDS), SLEEP APNEA (C-PAP MACHINE), kidney stone June 2016, History of Any Multi-Drug Resistant Organisms: None Reported Past Surgical History: Bariatric Surgery, Cardiac Ablation, Cholecystectomy Additional Past Surgical History / Comment(s): 02/28/15 gastric lap banding. Past Anesthesia/Blood Transfusion Reactions: No Reported Reaction, Motion Sickness Past Psychological History: No Psychological Hx Reported Additional Psychological History / Comment(s): . Smoking Status: Never smoker Past Alcohol Use History: None Reported Past Drug Use History: None Reported - Past Family History Mother Family Medical History: Cancer Additional Family Medical History / Comment(s): LUNG CANCER-. Father Family Medical History: Hyperlipidemia, Hypertension Surgical - Exam Vital Signs Temp Pulse Resp BP 99.6 F 94 16 146/93 03/21/17 14:38 03/21/17 14:38 03/21/17 14:38 03/21/17 14:38 - General well developed, no distress - Eyes PERRL - ENT normal pinna - Neck no masses - Respiratory normal expansion - Cardiovascular Rhythm: regular - Abdomen Abdomen: soft, non tender Bariatric Assessment & Plan Plan: Patient's lap band was adjusted. 0.2 mL was added to his band. He will follow- up in one month. Bariatric Checklist Checklist: Plan: Checklist: EGD: 1. Hiatal hernia: 2. H. Pylori: HgbA1c: Vitamin D: Smoking: Never smoker Primary care physician referral: sivakumar mcleod Psychiatry clearance: Cardiology clearance: Sleep study: Diet journal: VTE risk score: VTE risk level: Rehab needs at discharge:
== END ==
LOC: BARWHC3 14:14
PROVIDERS: ATTEND Surgery
DX: Z48.815 Encounter for surgical aftercare following surgery on the digestive system (principal); Z98.84 Bariatric surgery status
CPT/HCPCS: 99212

== ENCOUNTER → 2017-06-27 | Outpatient (CLI) | payer BC ==
[2017-06-27 15:17] VITALS: BP 149/82; PULSE 82; RESP 16; TEMP 98.3; BMI 46.3
--- NOTE | 2017-06-28 11:36 | P.HPBAR ---
Bariatric H&P - History & Physicial H&P Date: 06/27/17 History & Physicial: Visit/CC: BAND ADJ Patient initial contact: Initial weight: 149.549 kg Initial weight in pounds: 329.70 Height: 5 ft 7.5 in Initial BMI: 50.8 Last weight: Current weight: 136.078 kg Current weight in pounds: 300.00 Current BMI: 46.3 [place] body weight (based on NIH guidelines): 68.492 kg Excess body weight loss: 16.6% The patient is a 32 year-old M who presents for Bariatric Assessment. Patient rents today for lab band follow up. He is requesting a fill of his band. He currently is hungry. Past Medical History Past Medical History: Atrial Fibrillation, Hyperlipidemia, Hypertension, Sleep Apnea/CPAP/BIPAP Additional Past Medical History / Comment(s): HX OF HTN (NO CURRENT MEDS), SLEEP APNEA (C-PAP MACHINE), kidney stone June 2016, History of Any Multi-Drug Resistant Organisms: None Reported Past Surgical History: Bariatric Surgery, Cardiac Ablation, Cholecystectomy Additional Past Surgical History / Comment(s): 02/28/15 gastric lap banding. Past Anesthesia/Blood Transfusion Reactions: No Reported Reaction, Motion Sickness Past Psychological History: No Psychological Hx Reported Additional Psychological History / Comment(s): . Smoking Status: Never smoker Past Alcohol Use History: None Reported Past Drug Use History: None Reported - Past Family History Mother Family Medical History: Cancer Additional Family Medical History / Comment(s): LUNG CANCER-. Father Family Medical History: Hyperlipidemia, Hypertension Surgical - Exam Vital Signs Temp Pulse Resp BP 98.3 F 82 16 149/82 06/27/17 15:15 06/27/17 15:15 06/27/17 15:15 06/27/17 15:15 - General well developed, no distress - Eyes PERRL - ENT normal pinna - Neck no masses - Respiratory normal expansion - Cardiovascular Rhythm: regular - Abdomen Abdomen: soft, non tender Bariatric Assessment & Plan Plan: Patient's lap band was adjusted. 0.2 mL added to his band currently is 8.4 mL in the band. He'll follow-up in one month. Bariatric Checklist Checklist: Plan: Checklist: EGD: 1. Hiatal hernia: 2. H. Pylori: HgbA1c: Vitamin D: Smoking: Never smoker Primary care physician referral: sivakumar shani Psychiatry clearance: Cardiology clearance: Sleep study: Diet journal: VTE risk score: VTE risk level: Rehab needs at discharge:
== END | disposition home or self-care (01) ==
LOC: BARWHC3 13:49
PROVIDERS: ATTEND Surgery
DX: Z48.815 Encounter for surgical aftercare following surgery on the digestive system (principal); Z98.84 Bariatric surgery status
CPT/HCPCS: 99212

== ENCOUNTER → 2017-08-15 | Outpatient (CLI) | payer BC ==
[2017-08-15 15:13] VITALS: BP 145/75; PULSE 71; RESP 16; TEMP 97.9; BMI 45.4
--- NOTE | 2017-08-15 16:49 | P.HPBAR ---
Bariatric H&P - History & Physicial H&P Date: 08/15/17 History & Physicial: Visit/CC: band adj Patient initial contact: Initial weight: 149.549 kg Initial weight in pounds: 329.70 Height: 5 ft 7.5 in Initial BMI: 50.8 Last weight: Current weight: 133.526 kg Current weight in pounds: 294.38 Current BMI: 45.4 [place] body weight (based on NIH guidelines): 68.492 kg Excess body weight loss: 19.7% The patient is a 32 year-old M who presents for Bariatric Assessment. Patient presents today for LAP-BAND adjustment. He currently is hungry and wishes to have a fill of his band. Past Medical History Past Medical History: Atrial Fibrillation, Hyperlipidemia, Hypertension, Sleep Apnea/CPAP/BIPAP Additional Past Medical History / Comment(s): HX OF HTN (NO CURRENT MEDS), SLEEP APNEA (C-PAP MACHINE), kidney stone June 2016, History of Any Multi-Drug Resistant Organisms: None Reported Past Surgical History: Bariatric Surgery, Cardiac Ablation, Cholecystectomy Additional Past Surgical History / Comment(s): 02/28/15 gastric lap banding. Past Anesthesia/Blood Transfusion Reactions: No Reported Reaction, Motion Sickness Past Psychological History: No Psychological Hx Reported Additional Psychological History / Comment(s): . Smoking Status: Never smoker Past Alcohol Use History: None Reported Past Drug Use History: None Reported - Past Family History Mother Family Medical History: Cancer Additional Family Medical History / Comment(s): LUNG CANCER-. Father Family Medical History: Hyperlipidemia, Hypertension Surgical - Exam Vital Signs Temp Pulse Resp BP 97.9 F 71 16 145/75 08/15/17 15:09 08/15/17 15:09 08/15/17 15:09 08/15/17 15:09 - General well developed, no distress - Eyes PERRL - ENT normal pinna - Neck no masses - Respiratory normal expansion - Cardiovascular Rhythm: regular - Abdomen Abdomen: soft, non tender Bariatric Assessment & Plan Plan: Patient LAP-BAND was adjusted. He had 0.2 mL added to his band. He currently is 8.6 mL in the band. He'll follow-up in one month to recheck. Bariatric Checklist Checklist: Plan: Checklist: EGD: 1. Hiatal hernia: 2. H. Pylori: HgbA1c: Vitamin D: Smoking: Never smoker Primary care physician referral: sivakumar mcleod Psychiatry clearance: Cardiology clearance: Sleep study: Diet journal: VTE risk score: VTE risk level: Rehab needs at discharge:
== END | disposition home or self-care (01) ==
LOC: BARWHC3 14:22
PROVIDERS: ATTEND Surgery
DX: Z46.51 Encounter for fitting and adjustment of gastric lap band (principal); T73.0XXA Starvation, initial encounter; I48.91 Unspecified atrial fibrillation; E78.5 Hyperlipidemia, unspecified; I10 Essential (primary) hypertension; G47.30 Sleep apnea, unspecified; Z99.89 Dependence on other enabling machines and devices; Z90.89 Acquired absence of other organs; Z98.84 Bariatric surgery status; Z98.890 Other specified postprocedural states
CPT/HCPCS: 99212

== ENCOUNTER → 2017-08-25 | Outpatient (CLI) | payer BC ==
[2017-08-25 09:31] VITALS: BP 149/75; PULSE 80; TEMP 98.2; BMI 46.0
--- NOTE | 2017-08-25 09:33 | P.HPBAR ---
Bariatric H&P - History & Physicial H&P Date: 08/25/17 History & Physicial: Visit/CC: lap band follow up Patient initial contact: Initial weight: 149.549 kg Initial weight in pounds: 329.70 Height: 5 ft 7 in Initial BMI: 51.6 Last weight: Current weight: 133.175 kg Current weight in pounds: 293.60 Current BMI: 46.0 [place] body weight (based on NIH guidelines): 67.132 kg Excess body weight loss: 19.8% The patient is a 32 year-old M who presents for Bariatric Assessment. The patient some complaints of dysphagia for the last 5 days. He is requesting Fluid Removed from His Band. Past Medical History Past Medical History: Atrial Fibrillation, Hyperlipidemia, Hypertension, Sleep Apnea/CPAP/BIPAP Additional Past Medical History / Comment(s): HX OF HTN (NO CURRENT MEDS), SLEEP APNEA (C-PAP MACHINE), kidney stone June 2016, History of Any Multi-Drug Resistant Organisms: None Reported Past Surgical History: Bariatric Surgery, Cardiac Ablation, Cholecystectomy Additional Past Surgical History / Comment(s): 02/28/15 gastric lap banding. Past Anesthesia/Blood Transfusion Reactions: No Reported Reaction, Motion Sickness Past Psychological History: No Psychological Hx Reported Additional Psychological History / Comment(s): . Smoking Status: Never smoker Past Alcohol Use History: None Reported Past Drug Use History: None Reported - Past Family History Mother Family Medical History: Cancer Additional Family Medical History / Comment(s): LUNG CANCER-. Father Family Medical History: Hyperlipidemia, Hypertension Surgical - Exam Vital Signs Temp Pulse BP 98.2 F 80 149/75 08/25/17 09:26 08/25/17 09:26 08/25/17 09:26 - General well developed, no distress - Abdomen Abdomen: soft, non tender Bariatric Assessment & Plan Plan: The patient LAP-BAND was accessed. 1 mL was removed from his band. He currently is 7.4 mL in the band. He'll follow-up in one week. Bariatric Checklist Checklist: Plan: Checklist: EGD: 1. Hiatal hernia: 2. H. Pylori: HgbA1c: Vitamin D: Smoking: Never smoker Primary care physician referral: sivakumar mcleod Psychiatry clearance: Cardiology clearance: Sleep study: Diet journal: VTE risk score: VTE risk level: Rehab needs at discharge:
== END | disposition home or self-care (01) ==
LOC: BARWHC3 09:03
PROVIDERS: ATTEND Surgery
DX: Z46.51 Encounter for fitting and adjustment of gastric lap band (principal); R13.10 Dysphagia, unspecified; I48.91 Unspecified atrial fibrillation; E78.5 Hyperlipidemia, unspecified; I10 Essential (primary) hypertension; G47.00 Insomnia, unspecified; Z99.89 Dependence on other enabling machines and devices; Z98.84 Bariatric surgery status; Z90.49 Acquired absence of other specified parts of digestive tract
CPT/HCPCS: 99212

== ENCOUNTER → 2018-10-03 | Outpatient (CLI) | payer BC ==
[2018-10-03 08:31] LABS: HCT 49.5 % (39.0-53.0); HGB 16.1 gm/dL (13.0-17.5); MCHC 32.4 g/dL (31.0-37.0); MCV 86.4 fL (80.0-100.0); Mean Platelet Volume 7.4; Platelet Count 269 k/uL (150-450); RBC 5.73 m/uL (4.30-5.90); RDW 13.1 % (11.5-15.5); WBC 8.6 k/uL (3.8-10.6)
[2018-10-03 16:35] LABS: Albumin 4.3 g/dL (3.80-4.90); Albumin/Globulin Ratio 2.15 (1.60-3.17); Anion Gap 8.3 mmol/L (4.00-12.00); Calcium 9.4 mg/dL (8.7-10.3); Carbon Dioxide 24.7 mmol/L (21.6-31.8); LDL Cholesterol,Calculated 113.4 mg/dL (0.0-131.0); Potassium 4.4 mmol/L (3.5-5.5); Total Bilirubin 0.5 mg/dL (0.2-1.2); Total Protein 6.3 g/dL (6.2-8.2); VLDL Calculation 18.6 mg/dL (5.00-40.00)
== END ==
LOC: LABWHC1 07:30
PROVIDERS: ATTEND Internal Medicine
DX: Z00.00 Encounter for general adult medical examination without abnormal findings (principal)
CPT/HCPCS: 36415; 80053; 80061; 84443; 85027

== ENCOUNTER 2018-11-09 03:06 | Inpatient (IN) | payer BC ==
[2018-11-09] MEDS ORDERED: ACETAMINOPHEN TAB 500 MG TAB PO STA (03:18)
[2018-11-09] MEDS ORDERED: SODIUM CHLORIDE 0.9% 500 ML 500 ML IV STA (03:18)
[2018-11-09] MEDS ORDERED: IPRATROPIUM-ALBUTEROL 3 ML NEB INHALATION STA (03:18)
[2018-11-09] MEDS ORDERED: SODIUM CHLORIDE 0.9% 1,000 ML IV STA ×2 (03:18)
[2018-11-09] MEDS ORDERED: IBUPROFEN 800 MG TAB PO STA (03:18)
--- NOTE | 2018-11-09 03:31 | ED ---
SOB HPI - General Source: patient, RN notes reviewed, old records reviewed Mode of arrival: ambulatory Limitations: no limitations - History of Present Illness MD Complaint: cough, chest pain -: hour(s) Severity: mild Severity scale (1-10): 3 Quality: dull, aching Consistency: constant Improves With: nothing Worsens With: nothing Context: recent URI Associated Symptoms: chest pain, fever, cough Treatments Prior to Arrival: none <Darien Foster - Last Filed: 11/09/18 05:04> <Juan José Mcdonald - Last Filed: 11/09/18 07:29> - General Chief Complaint: Shortness of Breath Stated Complaint: Diff Breathing Time Seen by Provider: 11/09/18 03:07 - History of Present Illness Initial Comments: This is a 33-year-old male the ER for evaluation resents today for evaluation of fever chest pain not feeling well bodyaches body pains. Cough congestion. Patient has history of LAP-BAND bariatric surgery by Dr. Hill 5 years ago. No recent travel history no sick contacts does have history of DVT no history of PE. Patient notes fever today sweating not feeling well, no significant shortness of breath. No recent inpatient hospitalizations. No recent change in medications, denies drugs or alcohol. No abdominal pain of note. No nausea no vomiting no current diarrhea (Darien Foster) - Related Data Home Medications Medication Instructions Recorded Confirmed No Known Home Medications 11/09/18 11/09/18 Allergies Allergy/AdvReac Type Severity Reaction Status Date / Time No Known Allergies Allergy Verified 08/25/17 09:31 Review of Systems ROS Other: All systems not noted in ROS Statement are negative. <Darien Foster - Last Filed: 11/09/18 05:04> ROS Other: All systems not noted in ROS Statement are negative. <Juan José Mcdonald - Last Filed: 11/09/18 07:29> ROS Statement: Those systems with pertinent positive or pertinent negative responses have been documented in the HPI. Past Medical History Past Medical History: Atrial Fibrillation, Hyperlipidemia, Hypertension, Sleep Apnea/CPAP/BIPAP Additional Past Medical History / Comment(s): HX OF HTN (NO CURRENT MEDS), SLEEP APNEA (C-PAP MACHINE), kidney stone June 2016, History of Any Multi-Drug Resistant Organisms: None Reported Past Surgical History: Bariatric Surgery, Cardiac Ablation, Cholecystectomy Additional Past Surgical History / Comment(s): 02/28/15 gastric lap banding. Past Anesthesia/Blood Transfusion Reactions: No Reported Reaction, Motion Sickness Past Psychological History: No Psychological Hx Reported Smoking Status: Never smoker Past Alcohol Use History: Occasional Past Drug Use History: None Reported - Past Family History Mother Family Medical History: Cancer Additional Family Medical History / Comment(s): LUNG CANCER-. Father Family Medical History: Hyperlipidemia, Hypertension <Darien Foster - Last Filed: 11/09/18 05:04> General Exam Limitations: no limitations General appearance: alert, in no apparent distress Head exam: Present: atraumatic, normocephalic, normal inspection Eye exam: Present: normal appearance, PERRL, EOMI. Absent: scleral icterus, conjunctival injection, periorbital swelling ENT exam: Present: normal exam, mucous membranes moist Neck exam: Present: normal inspection. Absent: tenderness, meningismus, lymphadenopathy Respiratory exam: Present: normal lung sounds bilaterally. Absent: respiratory distress, wheezes, rales, rhonchi, stridor Cardiovascular Exam: Present: normal rhythm, tachycardia, normal heart sounds. Absent: systolic murmur, diastolic murmur, rubs, gallop, clicks GI/Abdominal exam: Present: soft, normal bowel sounds. Absent: distended, tenderness, guarding, rebound, rigid Extremities exam: Present: normal inspection, full ROM, normal capillary refill. Absent: tenderness, pedal edema, joint swelling, calf tenderness Back exam: Present: normal inspection Neurological exam: Present: alert, oriented X3, CN II-XII intact Psychiatric exam: Present: normal affect, normal mood Skin exam: Present: warm, dry, intact, normal color. Absent: rash <Darien Foster - Last Filed: 11/09/18 05:04> Course <Darien Foster - Last Filed: 11/09/18 05:04> Vital Signs 11/09/18 11/09/18 11/09/18 03:09 03:57 04:12 Temperature 100.1 F H Pulse Rate 114 H 112 H 117 H Respiratory 20 Rate Blood Pressure 109/61 O2 Sat by Pulse 97 Oximetry 11/09/18 11/09/18 04:39 06:42 Temperature 100.0 F H 98.3 F Pulse Rate 123 H 96 Respiratory 20 18 Rate Blood Pressure 106/53 117/58 O2 Sat by Pulse 95 96 Oximetry - Reevaluation(s) Reevaluation #1: 11/09/18 05:05 Record reviewed (Darien Foster) Reevaluation #2: 11/09/18 05:06 Symptoms improved with fever control (Darien Foster) Medical Decision Making - Lab Data Result diagrams: 11/09/18 03:41 11/09/18 03:41 - EKG Data -: EKG Interpreted by Me (EKG shows sinus tachycardia rate of 105, NJ 146, QRS 106, 433) <Darien Foster - Last Filed: 11/09/18 05:04> - Lab Data Result diagrams: 11/09/18 03:41 11/09/18 03:41 <Juan José Mcdonald - Last Filed: 11/09/18 07:29> - Medical Decision Making The patient was endorsed to me with admission orders are ready completed CAT scan was pending as well as the influenza testing influenza testing negative CAT scan was negative for PE or intra-abdominal processes except for collection of oral contrast proximal to the area the LAP-BAND. I did discuss case with Dr. Null. In addition Dr. Larios will be consulted. (Juan José Mcdonald) - Lab Data Lab Results 11/09/18 11/09/18 11/09/18 Range/Units 03:41 03:41 03:41 WBC 24.6 H (3.8-10.6) k/uL RBC 5.27 (4.30-5.90) m/uL Hgb 15.1 (13.0-17.5) gm/dL Hct 44.8 (39.0-53.0) % MCV 85.0 (80.0-100.0) fL MCH 28.6 (25.0-35.0) pg MCHC 33.7 (31.0-37.0) g/dL RDW 13.1 (11.5-15.5) % Plt Count 228 (150-450) k/uL Neutrophils % 90 % Lymphocytes % 5 % Monocytes % 3 % Eosinophils % 1 % Basophils % 0 % Neutrophils # 22.0 H (1.3-7.7) k/uL Lymphocytes # 1.2 (1.0-4.8) k/uL Monocytes # 0.8 (0-1.0) k/uL Eosinophils # 0.3 (0-0.7) k/uL Basophils # 0.1 (0-0.2) k/uL PT 10.7 (9.0-12.0) sec INR 1.0 (<1.2) APTT 25.7 (22.0-30.0) sec Sodium 140 (137-145) mmol/L Potassium 4.0 (3.5-5.1) mmol/L Chloride 105 (98-107) mmol/L Carbon Dioxide 21 L (22-30) mmol/L Anion Gap 14 mmol/L BUN 14 (9-20) mg/dL Creatinine 1.06 (0.66-1.25) mg/dL Est GFR (CKD-EPI)AfAm >90 (>60 ml/min/1.73 sqM) Est GFR (CKD-EPI)NonAf >90 (>60 ml/min/1.73 sqM) Glucose 109 H (74-99) mg/dL Calcium 10.3 H (8.4-10.2) mg/dL Magnesium 1.6 (1.6-2.3) mg/dL Total Bilirubin 0.9 (0.2-1.3) mg/dL AST 42 (17-59) U/L ALT 97 H (21-72) U/L Alkaline Phosphatase 111 (38-126) U/L Creatine Kinase 137 (55-170) U/L Troponin I (0.000-0.034) ng/mL Total Protein 7.3 (6.3-8.2) g/dL Albumin 4.5 (3.5-5.0) g/dL Influenza Type A RNA (Not Detectd) Influenza Type B (PCR) (Not Detectd) 11/09/18 11/09/18 Range/Units 03:41 04:40 WBC (3.8-10.6) k/uL RBC (4.30-5.90) m/uL Hgb (13.0-17.5) gm/dL Hct (39.0-53.0) % MCV (80.0-100.0) fL MCH (25.0-35.0) pg MCHC (31.0-37.0) g/dL RDW (11.5-15.5) % Plt Count (150-450) k/uL Neutrophils % % Lymphocytes % % Monocytes % % Eosinophils % % Basophils % % Neutrophils # (1.3-7.7) k/uL Lymphocytes # (1.0-4.8) k/uL Monocytes # (0-1.0) k/uL Eosinophils # (0-0.7) k/uL Basophils # (0-0.2) k/uL PT (9.0-12.0) sec INR (<1.2) APTT (22.0-30.0) sec Sodium (137-145) mmol/L Potassium (3.5-5.1) mmol/L Chloride (98-107) mmol/L Carbon Dioxide (22-30) mmol/L Anion Gap mmol/L BUN (9-20) mg/dL Creatinine (0.66-1.25) mg/dL Est GFR (CKD-EPI)AfAm (>60 ml/min/1.73 sqM) Est GFR (CKD-EPI)NonAf (>60 ml/min/1.73 sqM) Glucose (74-99) mg/dL Calcium (8.4-10.2) mg/dL Magnesium (1.6-2.3) mg/dL Total Bilirubin (0.2-1.3) mg/dL AST (17-59) U/L ALT (21-72) U/L Alkaline Phosphatase (38-126) U/L Creatine Kinase (55-170) U/L Troponin I <0.012 (0.000-0.034) ng/mL Total Protein (6.3-8.2) g/dL Albumin (3.5-5.0) g/dL Influenza Type A RNA Not Detected (Not Detectd) Influenza Type B (PCR) Not Detected (Not Detectd) Disposition Is patient prescribed a controlled substance at d/c from ED?: No <Darien Foster - Last Filed: 11/09/18 05:04> <Juan José Mcdonald - Last Filed: 11/09/18 07:29> Clinical Impression: Fever, Sepsis, Chest pain Disposition: ADMITTED IP TO THIS HOSP Condition: Serious
[2018-11-09] MEDS ORDERED: MORPHINE SULFATE 4 MG/ML SYRINGE IVP STA (03:45)
[2018-11-09] MEDS ORDERED: IOPAMIDOL-300 CONTRAST 30 ML VIAL (ORAL USE) PO PRN (03:46)
[2018-11-09 04:00] LABS: Basophils # (A) 0.1 k/uL (0-0.2); Basophils % (A) 0 %; Eosinophils # (A) 0.3 k/uL (0-0.7); Eosinophils % (A) 1 %; HCT 44.8 % (39.0-53.0); HGB 15.1 gm/dL (13.0-17.5); Lymphocytes # (A) 1.2 k/uL (1.0-4.8); Lymphocytes % (A) 5 %; MCH 28.6 pg (25.0-35.0); MCHC 33.7 g/dL (31.0-37.0); Mean Platelet Volume 7.7; Monocytes # (A) 0.8 k/uL (0-1.0); Monocytes % (A) 3 %; Neutrophils % (A) 90 %; Platelet Count 228 k/uL (150-450); RBC 5.27 m/uL (4.30-5.90); RDW 13.1 % (11.5-15.5); WBC 24.6 k/uL (3.8-10.6)
[2018-11-09 04:26] LABS: Partial Thromboplastin Time 25.7 sec (22.0-30.0); Prothrombin Time 10.7 sec (9.0-12.0)
[2018-11-09 04:54] LABS: African American GFR (CKD) >90 (>60 ml/min/1.73 sqM); Anion Gap 14 mmol/L; Blood Urea Nitrogen 14 mg/dL (9-20); Carbon Dioxide 21 mmol/L (22-30); Chloride 105 mmol/L (98-107); Glucose 109 mg/dL (74-99); Sodium 140 mmol/L (137-145)
[2018-11-09 04:55] LABS: ALT 97 U/L (21-72); AST 42 U/L (17-59); Albumin 4.5 g/dL (3.5-5.0); Alkaline Phosphatase 111 U/L (38-126); Calcium 10.3 mg/dL (8.4-10.2); Creatine Kinase 137 U/L (55-170); Magnesium 1.6 mg/dL (1.6-2.3); Total Bilirubin 0.9 mg/dL (0.2-1.3); Total Protein 7.3 g/dL (6.3-8.2)
[2018-11-09] MEDS ORDERED: PIPERACILLIN-TAZOBACTAM 3.375 GM in SODIUM CHLORIDE 0.9% 100 ML IVPB SCH ×2 (05:00→14:00)
[2018-11-09] MEDS ORDERED: PIPERACILLIN-TAZOBACTAM 3.375 GM in SODIUM CHLORIDE 0.9% 100 ML IVPB STA (05:02)
--- NOTE | 2018-11-09 05:19 | CT ---
INDICATION: Dyspnea, upper abdominal pain TECHNIQUE: CT acquisition is performed through the chest per institutional CT pulmonary angiogram protocol following the administration of 100 mL Isovue-370 IV contrast. Coronal reformatted images and coronal and sagittal MIP images are provided. CT acquisition was subsequently performed through the abdomen and pelvis, with coronal and sagittal reformatted images provided. DOSE INFORMATION: DLP 3468.9 mGy-cm. This CT exam was performed using one or more of the following dose reduction techniques: automated exposure control, adjustment of the mA and/or kV according to patient size, and/or use of iterative reconstruction technique. COMPARISON: CT abdomen and pelvis 07/02/16 and. FINDINGS: CTA chest: The thyroid gland is unremarkable. There is adequate opacification of the pulmonary arteries. The main pulmonary artery is normal in caliber. There is no evidence of acute pulmonary embolism. There is no thoracic aortic aneurysm or dissection. The heart is normal in size. There is no pericardial effusion. There is no adenopathy. The esophagus is patulous with retained oral contrast throughout. The lungs are clear. There is no airspace consolidation, pleural effusion, or pneumothorax. There is no pulmonary parenchymal mass or central endobronchial lesion. There are no acute osseous findings. CT Abdomen + Pelvis: There is a laparoscopic adjustable gastric band with associated subcutaneous port in the upper anterior left abdominal wall. There is no evidence of small or large bowel obstruction. There are no inflammatory changes of the bowel. The appendix is normal. The gallbladder is not visualized and may be surgically absent. There is hepatic steatosis. The spleen, pancreas, and adrenal glands are unremarkable. The kidneys enhance symmetrically. There is no hydronephrosis or perinephric stranding. Aorta and IVC are normal. There is no adenopathy. Urinary bladder and prostate are unremarkable. There is a small fat-containing left inguinal hernia. There are no acute osseous findings. IMPRESSION: 1. No evidence of acute pulmonary embolism. 2. Laparoscopic adjustable gastric band in place. The entire esophagus is patulous and filled with oral contrast. This may be related to tightness of the gastric lap band. 3. No evidence of acute inflammatory process in the abdomen or pelvis.
[2018-11-09] MEDS: SODIUM CHLORIDE 0.9% 1,000 ML IV SCH ×3 (06:14→21:40)
[2018-11-09] MEDS ORDERED: PANTOPRAZOLE 40 MG/10 ML VIAL IV SCH (09:00)
[2018-11-09] MEDS: SODIUM CHLORIDE 0.9% 500 ML 500 ML IV SCH ×3 (10:57→11:25)
[2018-11-09] MEDS: ENOXAPARIN 40 MG/0.4 ML SYRINGE SQ SCH ×2 (11:26→11:31)
--- NOTE | 2018-11-09 13:33 | P.GSCN ---
History of Present Illness Consult date: 11/09/18 Reason for Consult: lap band evaluation Requesting physician: Juan José Mcdonald History of present illness: CHIEF COMPLAINT: lap band evaluation HISTORY OF PRESENT ILLNESS: 33-year-old male presented to the emergency room with a chief complaint of fever, lightheadedness, shortness of breath, and chest pain. General surgery was consulted to evaluate the patient's lap band. Patient reports feeling abdominal pain near the port of his lap band for the past 1-2 weeks. He usually relates this to overeating. He reports mild nausea prior to hospitalization. Denies vomiting. Patient reports he has not followed up in the bariatric center in over a year. Patient unaware of how many cc are currently in his band. Patient reports history of GERD but does not take any medications for it. PAST MEDICAL HISTORY: See list. PAST SURGICAL HISTORY: See list. SOCIAL HISTORY: No illicit drug use. REVIEW OF SYSTEMS: CONSTITUTIONAL: reports fever. HEENT: Denies blurred vision, vision changes, or eye pain. Denies hemoptysis CARDIOVASCULAR: reports chest pain RESPIRATORY: reports shortness of breath GASTROINTESTINAL: Refer to HPI for pertinent findings HEMATOLOGIC: Denies bleeding disorders. GENITOURINARY: Denies any blood in urine. SKIN: Denies pruitis. Denies rash. PHYSICAL EXAM: VITAL SIGNS: Reviewed. GENERAL: Well-developed in no acute distress. HEENT: No sclera icterus. Extraocular movements grossly intact. Moist buccal mucosa. Head is atraumatic, normocephalic. ABDOMEN: Soft. Nondistended. tenderness with palpation near lap band port. NEUROLOGIC: Alert and oriented. Cranial nerves II through XII grossly intact. LABORATORY DATA: laboratory data on admission reveals white count 24.6. Hemoglobin 15.1. Sodium 140. Potassium 4.0. B UN 14. creatinine 1.06. Bilirubin 0.9. AST 42. ALT 97. IMAGING: CT abdomen and pelvis: laparoscopic adjustable gastric band in place. The entire esophagus is patulous and filled with oral contrast. This may be related to tightness of gastric lap band. No evidence of small or large bowel objection. No inflammatory changes the bowel. The appendix is normal. ASSESSMENT: 1. Abdominal pain near lap band port 2. Overtightened lap band 3. History of gastric banding, 2011 4. History of noncompliance as patient reports overeating with LAP-BAND and has not been evaluated in over a year by bariatric surgeon PLAN: 1. Regular diet 2. 9.5cc removed from lap band at the bedside 3. No further surgical intervention 4. Patient may follow up with Dr. Larios in the bariatric center outpatient Nurse practitioner note has been reviewed by physician. Signing provider agrees with the documented findings, assessment, and plan of care. Past Medical History Past Medical History: Atrial Fibrillation, Hyperlipidemia, Hypertension, Sleep Apnea/CPAP/BIPAP Additional Past Medical History / Comment(s): HX OF HTN (NO CURRENT MEDS), SLEEP APNEA (C-PAP MACHINE), kidney stone June 2016, History of Any Multi-Drug Resistant Organisms: None Reported Past Surgical History: Bariatric Surgery, Cardiac Ablation, Cholecystectomy Additional Past Surgical History / Comment(s): 02/28/15 gastric lap banding. Past Anesthesia/Blood Transfusion Reactions: No Reported Reaction, Motion Sickness Past Psychological History: No Psychological Hx Reported Additional Psychological History / Comment(s): . Smoking Status: Never smoker Past Alcohol Use History: Occasional Past Drug Use History: None Reported - Past Family History Mother Family Medical History: Cancer Additional Family Medical History / Comment(s): LUNG CANCER-. Father Family Medical History: Hyperlipidemia, Hypertension Medications and Allergies Home Medications Medication Instructions Recorded Confirmed Type No Known Home Medications 11/09/18 11/09/18 History Allergies Allergy/AdvReac Type Severity Reaction Status Date / Time No Known Allergies Allergy Verified 11/09/18 07:28 Surgical - Exam Vital Signs Temp Pulse Resp BP Pulse Ox 100.1 F H 114 H 20 109/61 97 11/09/18 03:09 11/09/18 03:09 11/09/18 03:09 11/09/18 03:09 11/09/18 03:09 Results - Labs 11/09/18 03:41 11/09/18 03:41 Abnormal Lab Results - Last 24 Hours (Table) 11/09/18 11/09/18 Range/Units 03:41 03:41 WBC 24.6 H (3.8-10.6) k/uL Neutrophils # 22.0 H (1.3-7.7) k/uL Carbon Dioxide 21 L (22-30) mmol/L Glucose 109 H (74-99) mg/dL Calcium 10.3 H (8.4-10.2) mg/dL ALT 97 H (21-72) U/L Diabetes panel 11/09/18 Range/Units 03:41 Sodium 140 (137-145) mmol/L Potassium 4.0 (3.5-5.1) mmol/L Chloride 105 (98-107) mmol/L Carbon Dioxide 21 L (22-30) mmol/L BUN 14 (9-20) mg/dL Creatinine 1.06 (0.66-1.25) mg/dL Glucose 109 H (74-99) mg/dL Calcium 10.3 H (8.4-10.2) mg/dL AST 42 (17-59) U/L ALT 97 H (21-72) U/L Alkaline Phosphatase 111 (38-126) U/L Total Protein 7.3 (6.3-8.2) g/dL Albumin 4.5 (3.5-5.0) g/dL Calcium panel 11/09/18 Range/Units 03:41 Calcium 10.3 H (8.4-10.2) mg/dL Albumin 4.5 (3.5-5.0) g/dL Pituitary panel 11/09/18 Range/Units 03:41 Sodium 140 (137-145) mmol/L Potassium 4.0 (3.5-5.1) mmol/L Chloride 105 (98-107) mmol/L Carbon Dioxide 21 L (22-30) mmol/L BUN 14 (9-20) mg/dL Creatinine 1.06 (0.66-1.25) mg/dL Glucose 109 H (74-99) mg/dL Calcium 10.3 H (8.4-10.2) mg/dL Adrenal panel 11/09/18 Range/Units 03:41 Sodium 140 (137-145) mmol/L Potassium 4.0 (3.5-5.1) mmol/L Chloride 105 (98-107) mmol/L Carbon Dioxide 21 L (22-30) mmol/L BUN 14 (9-20) mg/dL Creatinine 1.06 (0.66-1.25) mg/dL Glucose 109 H (74-99) mg/dL Calcium 10.3 H (8.4-10.2) mg/dL Total Bilirubin 0.9 (0.2-1.3) mg/dL AST 42 (17-59) U/L ALT 97 H (21-72) U/L Alkaline Phosphatase 111 (38-126) U/L Total Protein 7.3 (6.3-8.2) g/dL Albumin 4.5 (3.5-5.0) g/dL
--- NOTE | 2018-11-09 13:39 | P.HPIM ---
History of Present Illness 33-year-old male came in with the complaints of body aches and a high-grade fevers appears to have viral illness. Influenza is negative. Patient is also complaining of moderate amount of swelling pain in the left upper quadrant where he had a LAP-BAND and the CAT scan of the abdomen and chest was done which is significant for fluid with oral contrast in the esophagus LAP-BAND need to be adjusted and there may be tightness. Patient was started on Zosyn although there is no evidence of pneumonia UTI or any other source of infection. Patient appears to have viral illness acute and his abdominal pain is secondary to the LAP-BAND no evidence of diverticulitis and colitis because of which I'll discontinue the antibiotics we will monitor him overnight without antibiotics for any fever although anti-inflammatory medications were discontinued as they can mask fever. Patient is doing better tomorrow patient will be discharged tomorrow after evaluation by general surgery for LAP-BAND Review of Systems REVIEW OF SYSTEMS: CONSTITUTIONAL: As mentioned in HPI HEENT: No recent visual problems or hearing problems. Denied any sore throat. CARDIOVASCULAR: No chest pain, orthopnea, PND, no palpitations, no syncope. PULMONARY: No shortness of breath, no cough, no hemoptysis. GASTROINTESTINAL: No diarrhea, no nausea, no vomiting, NEUROLOGICAL: No headaches, no weakness, no numbness. HEMATOLOGICAL: Denies any bleeding or petechiae. GENITOURINARY: Denies any burning micturition, frequency, or urgency. MUSCULOSKELETAL/RHEUMATOLOGICAL: Denies any joint pain, swelling, or any muscle pain. ENDOCRINE: Denies any polyuria or polydipsia. The rest of the 14-point review of systems is negative. Past Medical History Past Medical History: Atrial Fibrillation, Hyperlipidemia, Hypertension, Sleep Apnea/CPAP/BIPAP Additional Past Medical History / Comment(s): HX OF HTN (NO CURRENT MEDS), SLEEP APNEA (C-PAP MACHINE), kidney stone June 2016, History of Any Multi-Drug Resistant Organisms: None Reported Past Surgical History: Bariatric Surgery, Cardiac Ablation, Cholecystectomy Additional Past Surgical History / Comment(s): 02/28/15 gastric lap banding. Past Anesthesia/Blood Transfusion Reactions: No Reported Reaction, Motion Sickness Past Psychological History: No Psychological Hx Reported Additional Psychological History / Comment(s): . Smoking Status: Never smoker Past Alcohol Use History: Occasional Past Drug Use History: None Reported - Past Family History Mother Family Medical History: Cancer Additional Family Medical History / Comment(s): LUNG CANCER-. Father Family Medical History: Hyperlipidemia, Hypertension Medications and Allergies Home Medications Medication Instructions Recorded Confirmed Type No Known Home Medications 11/09/18 11/09/18 History Allergies Allergy/AdvReac Type Severity Reaction Status Date / Time No Known Allergies Allergy Verified 11/09/18 07:28 Physical Exam Vitals: Vital Signs Temp Pulse Pulse Resp BP BP Pulse Ox 11/09/18 07:47 97.3 F L 89 21 144/69 97 11/09/18 06:42 98.3 F 96 18 117/58 96 11/09/18 04:39 100.0 F H 123 H 20 106/53 95 11/09/18 04:12 117 H 11/09/18 03:57 112 H 11/09/18 03:09 100.1 F H 114 H 20 109/61 97 Intake and Output 11/08/18 11/09/18 11/09/18 22:59 06:59 14:59 Other: Weight 145.15 kg PHYSICAL EXAMINATION: GENERAL: The patient is alert and oriented x3, not in any acute distress. Well developed, well nourished. HEENT: Pupils are round and equally reacting to light. EOMI. No scleral icterus. No conjunctival pallor. Normocephalic, atraumatic. No pharyngeal erythema. No thyromegaly. CARDIOVASCULAR: S1 and S2 present. No murmurs, rubs, or gallops. PULMONARY: Chest is clear to auscultation, no wheezing or crackles. ABDOMEN: Soft, nontender, nondistended, normoactive bowel sounds. No palpable organomegaly. MUSCULOSKELETAL: No joint swelling or deformity. EXTREMITIES: No cyanosis, clubbing, or pedal edema. NEUROLOGICAL: Gross neurological examination did not reveal any focal deficits. SKIN: No rashes. Results CBC & Chem 7: 11/09/18 03:41 11/09/18 03:41 Labs: Abnormal Lab Results - Last 24 Hours (Table) 11/09/18 11/09/18 Range/Units 03:41 03:41 WBC 24.6 H (3.8-10.6) k/uL Neutrophils # 22.0 H (1.3-7.7) k/uL Carbon Dioxide 21 L (22-30) mmol/L Glucose 109 H (74-99) mg/dL Calcium 10.3 H (8.4-10.2) mg/dL ALT 97 H (21-72) U/L Thrombosis Risk Factor Assmnt - Choose All That Apply Any of the Below Risk Factors Present?: Yes Each Factor Represents 1 point: Obesity (BMI >25) Other Risk Factors: No Other congenital or acquired thrombophilia - If yes, enter type in comment: No Thrombosis Risk Factor Assessment Total Risk Factor Score: 1 Thrombosis Risk Factor Assessment Level: Low Risk Assessment and Plan Plan: -Systemic inflammatory response and sepsis: Secondary to acute viral illness no evidence of bacterial infection and antibiotics may not be helpful patient doesn't have any diarrhea because of which we're unable to obtain a C. diff testing although patient does have leukocytosis. Plan is to continue with IV antibiotics recheck CBC tomorrow, if patient's fevers improved and white blood cell count come down patient will be discharged tomorrow. -Status post lap band surgery with some tightness to the surgery was consulted regarding this. -Obesity -Hypertension patient blood pressure and vitals are stable at this time patient has not been taking any medications and blood pressure is expected to improve with weight loss no further intervention is necessary at this time.
[2018-11-09 19:51] LABS: Appearance,Urine Clear (Clear); Bilirubin,Urine Negative (Negative); Blood,Urine Negative (Negative); Color,Urine Yellow; Glucose,Urine (UA) Negative (Negative); Ketones,Urine Negative (Negative); Leukocyte Esterase,Urine Negative (Negative); Nitrite,Urine Negative (Negative); PH, Urine 6.5 (5.0-8.0); Protein,Urine Trace (Negative); Specific Gravity,Urine 1.027 (1.001-1.035); Urobilinogen,Urine >12.0 mg/dL (<2.0)
[2018-11-10] MEDS ORDERED: VANCOMYCIN 2,000 MG in SODIUM CHLORIDE 0.9% 500 ML 500 ML IVPB ONE ×2
--- NOTE | 2018-11-10 00:46 | US ---
EXAM: US Duplex Left Lower Extremity Veins CLINICAL HISTORY: ITS.REASON US Reason: Left Lower Extremity Swelling Left Lower Extremity Swelling. Left leg swelling x 2 hours. No hx of DVT. Pt not on blood thinners. TECHNIQUE: Real-time duplex ultrasound scan of the left lower extremity veins integrating B-mode two-dimensional vascular structure, Doppler spectral analysis, color flow Doppler imaging and compression. COMPARISON: No relevant prior studies available. FINDINGS: Deep veins: Unremarkable. No DVT in the visualized common femoral, femoral, proximal deep femoral or popliteal veins. The veins demonstrate normal color flow, are normally compressible, with normal phasic flow and/or augmentation response. Superficial veins: Unremarkable. No thrombus in the visualized great saphenous vein. Soft tissues: No acute findings. No popliteal cyst. Prominent nodes in the left groin with fatty abelardo likely within normal limits. IMPRESSION: Normal left lower extremity duplex venous ultrasound.
[2018-11-10 03:08] VITALS: TEMP 98.4
[2018-11-10] MEDS: SODIUM CHLORIDE 0.9% 1,000 ML IV SCH (04:49)
[2018-11-10 07:22] LABS: African American GFR (CKD) >90 (>60 ml/min/1.73 sqM); Anion Gap 8 mmol/L; Blood Urea Nitrogen 10 mg/dL (9-20); Calcium 9.3 mg/dL (8.4-10.2); Carbon Dioxide 22 mmol/L (22-30); Chloride 109 mmol/L (98-107); Glucose 96 mg/dL (74-99); Potassium 4.2 mmol/L (3.5-5.1); Sodium 139 mmol/L (137-145)
[2018-11-10] MEDS ORDERED: PANTOPRAZOLE 40 MG TABLET PO SCH (07:30)
[2018-11-10 07:55] VITALS: RESP 16
[2018-11-10] MEDS ORDERED: VANCOMYCIN IV PER PHARMACY 1 EACH MISC MISCELLANE PRN (11:08)
[2018-11-10 12:29] LABS: HCT 43.9 % (39.0-53.0); HGB 14.3 gm/dL (13.0-17.5); MCH 28.6 pg (25.0-35.0); MCHC 32.6 g/dL (31.0-37.0); MCV 87.8 fL (80.0-100.0); Mean Platelet Volume 8.4; Platelet Count 200 k/uL (150-450); RBC 4.99 m/uL (4.30-5.90); RDW 13.3 % (11.5-15.5)
--- NOTE | 2018-11-10 13:25 | P.DS ---
Providers Date of admission: 11/09/18 05:03 Attending physician: Ayaan Block Consults: 11/09/18 07:23 Consult Physician Routine Consulting Provider: Erasmo Larios Consult Reason/Comments: Lap band evaluation Do you want consulting provider notified?: Yes Primary care physician: Aundrea Wadsworth [facility] Course: 33-year-old male came in with the complaints of body aches and a high-grade fevers appears to have viral illness. Influenza is negative. Patient is also complaining of moderate amount of swelling pain in the left upper quadrant where he had a LAP-BAND and the CAT scan of the abdomen and chest was done which is significant for fluid with oral contrast in the esophagus LAP-BAND need to be adjusted and there may be tightness. Patient was started on Zosyn although there is no evidence of pneumonia UTI or any other source of infection. Patient appears to have viral illness acute and his abdominal pain is secondary to the LAP-BAND no evidence of diverticulitis and colitis because of which I'll discontinue the antibiotics we will monitor him overnight without antibiotics for any fever although anti-inflammatory medications were discontinued as they can mask fever. Patient is doing better tomorrow patient will be discharged tomorrow after evaluation by general surgery for LAP-BAND 11/10/2018 LAP-BAND fluid was removed and patient is feeling much better no abdominal pain at this time, fevers resolved white blood cell count has come down to 11,000. Later in the day patient is found to have increasing redness in the left leg mild circumferential with increased swelling because of which Doppler of the left gross and he was opted which did not show any DVT patient may have mild cellulitis although I still believe his fevers are secondary to generalized viral illness patient has very minimal redness circumferentially in the lower part of the left leg. Patient doesn't have any Reeder infection and MRSA in the past patient was given a dose of vancomycin yesterday patient was started on ceftezole in today after dose of ceftezole and patient can be discharged on Keflex for 5 days PHYSICAL EXAMINATION: GENERAL: The patient is alert and oriented x3, not in any acute distress. Well developed, well nourished. HEENT: Pupils are round and equally reacting to light. EOMI. No scleral icterus. No conjunctival pallor. Normocephalic, atraumatic. No pharyngeal erythema. No thyromegaly. CARDIOVASCULAR: S1 and S2 present. No murmurs, rubs, or gallops. PULMONARY: Chest is clear to auscultation, no wheezing or crackles. ABDOMEN: Soft, nontender, nondistended, normoactive bowel sounds. No palpable organomegaly. MUSCULOSKELETAL: No joint swelling or deformity. EXTREMITIES: No cyanosis, clubbing, or pedal edema. NEUROLOGICAL: Gross neurological examination did not reveal any focal deficits. SKIN: Redness in the left leg as mentioned above Assessment and Plan Plan: -Systemic inflammatory response and sepsis: Secondary to acute viral illness no evidence of bacterial infection except for Mycelex of the left leg for which patient was assessed discharged on Keflex -Status post lap band surgery -Obesity -Hypertension patient blood pressure and vitals are stable at this time patient has not been taking any medications and blood pressure is expected to improve with weight loss no further intervention is necessary at this time. Patient Condition at Discharge: Serious Plan - Discharge Summary Discharge Rx Participant: Yes New Discharge Prescriptions: New Cephalexin [Keflex] 500 mg PO Q6HR 5 Days #20 cap Discharge Medication List Cephalexin [Keflex] 500 mg PO Q6HR 5 Days #20 cap 11/10/18 [Rx] Follow up Appointment(s)/Referral(s): [facility] [NON-STAFF] - 12/04/18 1:40 pm Aundrea Wadsworth MD [Primary Care Provider] - 11/14/18 2:30 pm Activity/Diet/Wound Care/Special Instructions: activity limited until follow up continue current diet follow up with primary care provider this week continue antibiotics for one week. Discharge Disposition: HOME SELF-CARE
[2018-11-10 14:32] VITALS: BP 141/76; PULSE 75
--- NOTE | 2018-11-10 14:35 | P.PN ---
Subjective Progress Note Date: 11/10/18 CHIEF COMPLAINT: lap band evaluation HISTORY OF PRESENT ILLNESS: Patient seen and examined this morning at the bedside. Status post removal of 9.5 mL from lap band. Patient reports resolution of abdominal pain. Denies nausea or vomiting. Tolerating diet. PHYSICAL EXAM: VITAL SIGNS: Reviewed. GENERAL: Well-developed in no acute distress. HEENT: No sclera icterus. Extraocular movements grossly intact. Moist buccal mucosa. Head is atraumatic, normocephalic. ABDOMEN: Soft. Nondistended. Nontender. NEUROLOGIC: Alert and oriented. Cranial nerves II through XII grossly intact. ASSESSMENT: 1. Abdominal pain near lap band port 2. Overtightened lap band 3. History of gastric banding, 2011 4. History of noncompliance as patient reports overeating with LAP-BAND and has not been evaluated in over a year by bariatric surgeon PLAN: 1. Regular diet 2. No further surgical intervention 3. Patient may follow up with Dr. Larios in the bariatric center outpatient Nurse practitioner note has been reviewed by physician. Signing provider agrees with the documented findings, assessment, and plan of care. Objective - Vital Signs Vital signs: Vital Signs Temp 98.4 F 11/10/18 14:30 Pulse 75 11/10/18 14:30 Resp 16 11/10/18 14:30 BP 141/76 11/10/18 14:30 Pulse Ox 95 11/10/18 14:30 Intake & Output 11/09/18 11/10/18 11/10/18 18:59 06:59 18:59 Intake Total 1200 1460 356 Balance 1200 1460 356 Intake: Intake, IV Titration 800 500 Amount Sodium Chloride 0.9% 1, 800 000 ml @ 100 mls/hr IV . Q10H [facility] Rx#:[id number] Vancomycin 2,000 mg In 500 Sodium Chloride 0.9% 500 ml 500 ml @ 167 mls/hr IVPB ONCE ONE Rx#: [id number] Oral 400 960 356 Other: # Voids 2 - Labs CBC & Chem 7: 11/10/18 06:30 11/10/18 06:28 Labs: Abnormal Lab Results - Last 24 Hours (Table) 11/09/18 11/10/18 11/10/18 Range/Units Unknown 06:28 06:30 WBC 11.0 H (3.8-10.6) k/uL Chloride 109 H (98-107) mmol/L Urine Protein Trace H (Negative) Microbiology - Last 24 Hours (Table) 11/09/18 06:20 Blood Culture - Preliminary Blood No Growth after 24 hours 11/09/18 03:41 Blood Culture - Preliminary Blood No Growth after 24 hours
[2018-11-10] MEDS ORDERED: ceFAZolin IN SWFI 2 GM/20 ML SYRINGE IVP SCH (16:00)
[2018-11-10] MEDS ORDERED: ceFAZolin 2 GM in SODIUM CHLORIDE 0.9% 100 ML IVPB SCH (16:00)
== END 2018-11-10 16:09 | disposition home or self-care (01) | DRG 872 ==
LOC: EC 03:06 → 4SSUR 05:03
PROVIDERS: ADMIT Hospitalist; ATTEND Hospitalist
PROC: 0D963ZZ Drainage of Stomach, Percutaneous Approach (ICD-10-PCS; principal; 2018-11-09)
DX: A41.9 Sepsis, unspecified organism (principal); Z68.42 Body mass index [BMI] 45.0-49.9, adult; K95.09 Other complications of gastric band procedure; B34.9 Viral infection, unspecified; E66.9 Obesity, unspecified; E78.5 Hyperlipidemia, unspecified; G47.30 Sleep apnea, unspecified; Z99.89 Dependence on other enabling machines and devices; I10 Essential (primary) hypertension; I48.91 Unspecified atrial fibrillation; K21.9 Gastro-esophageal reflux disease without esophagitis; Z80.1 Family history of malignant neoplasm of trachea, bronchus and lung; Z82.49 Family history of ischemic heart disease and other diseases of the circulatory system; Z91.19 Patient's noncompliance with other medical treatment and regimen
CPT/HCPCS: 36415; 71275; 74177; 80048; 80053; 81003; 82550; 83605; 83735; 84484; 85025; 85027; 85610; 85730; 87040; 87502; 93005; 94640; 96361; 96365; 96375; 99285

== ENCOUNTER → 2019-01-30 | Outpatient (CLI) | payer BC ==
--- NOTE | 2019-01-30 20:53 | CONS ---
CONSULTATION REASON FOR CONSULTATION: Sleep apnea. 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 and he has been having difficulties with excessive tiredness and sleepiness during the day. His current [place] score is 14. The patient has typical manifestations of sleep apnea, including loud snoring, witnessed apneas, excessive hypersomnia and sleepiness. He goes to bed around 11:30 p.m., wakes up at 5:30 a.m. in the morning and he is very tired and sleepy during the day. No history of any motor vehicle accidents. He lives in [place] and he drives short distances back and forth to work. No history of substance abuse. No alcoholism. He has gained weight over the years on the order of 30 pounds over the past 3 to 4 years. No sleep paralysis. No hallucinations. No cataplexy. No other major medical problems or comorbidities. PAST MEDICAL HISTORY: Obesity. PAST SURGICAL HISTORY: Cholecystectomy. DRUG ALLERGIES: NOT KNOWN. OUTPATIENT MEDICATIONS: None. SOCIAL HISTORY: The patient is a nonsmoker. No history of alcoholism. No history of IV drugs. FAMILY HISTORY: Mother from complications of lymphoma. REVIEW OF SYSTEMS: Fourteen-point review of systems was done. No nasal allergies. No nasal congestion or postnasal drainage. Takes naps any time he has the opportunity to do so. He does not wake up in the middle of the night. No history of any nocturia. No sleep paralysis. No hallucinations. No cataplexy. No anxiety. No depression. No heartburn. No chest pain, shortness of breath or palpitations. PHYSICAL EXAMINATION: VITAL SIGNS: BP 142/72, pulse 76, respirations 16, temperature 97.9, saturation 94% on room air. Height is 5 feet 6 inches, weight . BMI is 49. Neck size 20-1/2 inches. GENERAL APPEARANCE: Calm, comfortable. HEAD: Atraumatic, normocephalic. NECK: Supple. No JVD. No goiter or neck masses. Mallampati class IV. LUNGS: Clear to auscultation. HEART: Heart sounds are regular rate and rhythm. Normal S1, S2. No S3, S4. No murmurs. ABDOMEN: Soft, nontender. No organomegaly. EXTREMITIES: No edema. No cyanosis or clubbing. NEUROLOGIC: Alert and oriented x3. No focal neurological deficits. PSYCHIATRIC: Negative for anxiety or depression. IMPRESSION: 1. Hypersomnia; [place] score of 14. High suspicion for obstructive sleep apnea, as the patient has loud snoring and witnessed apneas along with recent weight gain. 2. Obesity with a body mass index of 49. PLAN: The pre-test probability for sleep apnea is very high. The patient will need a home sleep study and we will treat the patient accordingly. Meanwhile, driving precautions were given. The patient was asked to extend his sleep hours to an average of 7-8 hours of sleep per night. Implement good sleep hygiene measures. We will continue to follow. MMODL / IJN: [id number] /
== END ==
LOC: SLEEP 15:18
PROVIDERS: ATTEND Internal Medicine Critical Care Medicine
DX: G47.10 Hypersomnia, unspecified (principal); E66.9 Obesity, unspecified; Z68.42 Body mass index [BMI] 45.0-49.9, adult
CPT/HCPCS: 99211

== ENCOUNTER → 2019-04-09 | Outpatient (CLI) | payer BC ==
[2019-04-09 15:41] VITALS: BP 150/82; PULSE 72; TEMP 98.3; BMI 44.7
--- NOTE | 2019-04-09 18:00 | P.HPBAR ---
Bariatric H&P - History & Physicial H&P Date: 04/09/19 History & Physicial: Visit/CC: discuss band removal Patient initial contact: Initial weight: 149.549 kg Initial weight in pounds: 329.70 Height: 5 ft 7.5 in Initial BMI: 50.8 Last weight: Current weight: 131.542 kg Current weight in pounds: 290.00 Current BMI: 44.7 [place] body weight (based on NIH guidelines): 68.492 kg Excess body weight loss: 22.2% The patient is a 33 year-old M who presents for Bariatric Assessment. The pat ient is a history of chronic dysphagia his LAP-BAND. He wishes LAP-BAND removed. Past Medical History Past Medical History: Atrial Fibrillation, Hyperlipidemia, Hypertension, Sleep Apnea/CPAP/BIPAP Additional Past Medical History / Comment(s): HX OF HTN (NO CURRENT MEDS), SLEEP APNEA (C-PAP MACHINE), kidney stone June 2016, History of Any Multi-Drug Resistant Organisms: None Reported Past Surgical History: Bariatric Surgery, Cardiac Ablation, Cholecystectomy Additional Past Surgical History / Comment(s): 02/28/15 gastric lap banding. Past Anesthesia/Blood Transfusion Reactions: No Reported Reaction, Motion Sickness Past Psychological History: No Psychological Hx Reported Additional Psychological History / Comment(s): . Smoking Status: Never smoker Past Alcohol Use History: Occasional Past Drug Use History: None Reported - Past Family History Mother Family Medical History: Cancer Additional Family Medical History / Comment(s): LUNG CANCER-. Father Family Medical History: Hyperlipidemia, Hypertension Surgical - Exam Vital Signs Temp Pulse BP 98.3 F 72 150/82 04/09/19 15:37 04/09/19 15:37 04/09/19 15:37 - General well developed, well nourished, no distress - Eyes PERRL - ENT normal pinna - Respiratory normal expansion - Cardiovascular Rhythm: regular - Abdomen Abdomen: soft, non tender Bariatric Assessment & Plan Plan: Patient has history of chronic dysphagia. Patient will have his LAP-BAND device removed next month. Bariatric Checklist Checklist: Plan: Checklist: EGD: 1. Hiatal hernia: 2. H. Pylori: HgbA1c: Vitamin D: Smoking: Never smoker Primary care physician referral: sivakumar mcleod Psychiatry clearance: Cardiology clearance: Sleep study: Diet journal: VTE risk score: VTE risk level: Rehab needs at discharge:
== END | disposition home or self-care (01) ==
LOC: BARWHC3 14:37
PROVIDERS: ATTEND Surgery
DX: Z46.51 Encounter for fitting and adjustment of gastric lap band (principal); Z87.19 Personal history of other diseases of the digestive system; Z98.84 Bariatric surgery status; Z90.49 Acquired absence of other specified parts of digestive tract
CPT/HCPCS: 99211

== ENCOUNTER → 2019-05-15 | Outpatient (CLI) | payer BC ==
[2019-05-15 08:23] LABS: HCT 49.6 % (39.0-53.0); HGB 16.3 gm/dL (13.0-17.5); MCHC 32.8 g/dL (31.0-37.0); MCV 88.2 fL (80.0-100.0); Mean Platelet Volume 7.9; Platelet Count 235 k/uL (150-450); RBC 5.62 m/uL (4.30-5.90); RDW 12.9 % (11.5-15.5); WBC 9.1 k/uL (3.8-10.6)
== END | disposition home or self-care (01) ==
LOC: LABWHC1 07:55
PROVIDERS: ATTEND Surgery
DX: Z01.812 Encounter for preprocedural laboratory examination (principal)
CPT/HCPCS: 36415; 85027

== ENCOUNTER 2019-05-18 06:21 | Day surgery (SDC) | payer BC ==
[2019-05-10 16:00] VITALS: BMI 44.1
[~2019-05-18 06:21] MED LIST: DEXAMETHASONE SOD PHOSPHATE 10 MG/ML 1 ML VIAL IV ONE; HYDROmorphone 0.5 MG/0.5 ML SYRINGE IVP PRN; LACTATED RINGERS 1,000 ML IV SCH; LIDOCAINE 1% 20 ML VIAL (10MG/ML) FOR IV START INTRADERMA PRN; ONDANSETRON 4 MG/2 ML VIAL IVP ONE; ceFAZolin 3 GM in SODIUM CHLORIDE 0.9% 100 ML IVPB ONE; fentaNYL (PF) 50 MCG/ML 2 ML AMP IV PRN
[2019-05-18] MEDS ORDERED: SCOPOLAMINE 1.5MG/72HR PATCH TRANSDERM ONE (07:21)
[2019-05-18] MEDS ORDERED: HEPARIN SODIUM,PORCINE 5,000 UNIT/ML 1 ML VIAL SQ ONE (07:48)
--- NOTE | 2019-05-18 07:54 | P.GSHP ---
History of Present Illness H&P Date: 05/18/19 Chief Complaint: Dysphagia This a 34-year-old male presents today for removal of LAP-BAND system. He's had issues with chronic dysphagia. Past Medical History Past Medical History: Atrial Fibrillation, Hypertension, Sleep Apnea/CPAP/BIPAP Additional Past Medical History / Comment(s): HX OF HTN (NO CURRENT MEDS), kidney stone June 2016, History of Any Multi-Drug Resistant Organisms: None Reported Past Surgical History: Bariatric Surgery, Cardiac Ablation, Cholecystectomy Additional Past Surgical History / Comment(s): 02/28/15 gastric lap banding. Past Anesthesia/Blood Transfusion Reactions: No Reported Reaction, Motion Sickness Smoking Status: Never smoker - Past Family History Mother Family Medical History: Cancer Additional Family Medical History / Comment(s): LUNG CANCER-. Father Family Medical History: Hyperlipidemia, Hypertension Medications and Allergies Home Medications Medication Instructions Recorded Confirmed Type No Known Home Medications 05/10/19 05/18/19 History Allergies Allergy/AdvReac Type Severity Reaction Status Date / Time No Known Allergies Allergy Verified 05/18/19 06:46 Surgical - Exam Vital Signs Temp Pulse Resp BP Pulse Ox 97.3 F L 89 18 128/64 95 05/18/19 06:54 05/18/19 06:54 05/18/19 06:54 05/18/19 06:54 05/18/19 06:54 - General well developed, well nourished, no distress - Eyes PERRL - ENT normal pinna - Neck no masses - Respiratory normal expansion - Cardiovascular Rhythm: regular - Abdomen Abdomen: soft, non tender Assessment and Plan Assessment: Chronic dysphagia. We'll perform laparoscopic removal of LAP-BAND system.
[2019-05-18] MEDS ORDERED: ROCURONIUM BROMIDE 10 MG/ML 10 ML VIAL IV ONE (07:56)
[2019-05-18] MEDS ORDERED: MIDAZOLAM 2 MG/2 ML VIAL ONE (07:56)
[2019-05-18] MEDS ORDERED: fentaNYL (PF) 50 MCG/ML 2 ML AMP ONE (07:56)
[2019-05-18] MEDS ORDERED: SUCCINYLCHOLINE CHLORIDE VIAL 200 MG/10 ML VIAL IV ONE (07:56)
[2019-05-18] MEDS ORDERED: KETOROLAC 30 MG/ML 1 ML VIAL ONE (07:56)
[2019-05-18] MEDS ORDERED: PROPOFOL 10 MG/ML 20 ML VIAL IV ONE (07:56)
[2019-05-18] MEDS ORDERED: BUPIVACAIN-EPI 0.25%-1:200,000 30 ML VIAL SQ ONE ×2 (08:16→08:33)
[2019-05-18] MEDS ORDERED: LACTATED RINGERS 1,000 ML IV ONE (08:56)
[2019-05-18 09:21] VITALS: TEMP 97
--- NOTE | 2019-05-18 09:37 | P.OP ---
Date of Procedure: 05/18/19 Preoperative Diagnosis: Dysphagia Postoperative Diagnosis: Dysphagia Procedure(s) Performed: Laparoscopic removal of LAP-BAND system Anesthesia: LUPE Surgeon: Erasmo Larios Estimated Blood Loss (ml): 5 Pathology: none sent Condition: stable Disposition: PACU Description of Procedure: The patient's placed on the operating table in the supine position. He received general anesthesia. He was then placed in dorsal lithotomy position. His abdomen was prepped and draped usual sterile fashion. The skin incision sites were anesthetized 1% local Xylocaine. The skin was incised at the LAP-BAND port site and using blunt and sharp dissection with cautery the LAP-BAND port was d issected free and sent to pathology. Using a 5 mm optical trocar under direct visualization the Cavity is entered. And then the abdomen was insufflated. After adequate insufflation the laparoscope placed back. Cavity. Next a 5 mm trochars placed in the right epigastric right lateral and left lateral position. The original 5 mm trocar was exchanged for a 15 mm trocar. And then a 8 mm trochars placed in the left. Local area. The adhesions Catracho device were lysed using left cautery and then the LAP-BAND buckle was freed using left cautery and then the LAP-BAND was cut and withdrawn from around stomach. Care was taken to identify and preserve the gastric wall. There is no evidence of any injury to the stomach. The LAP-BAND was then brought out through the 15 mm trocar site. Ther e is no bleeding seen. The trochars withdrawn. The skin was closed interrupted 3-0 Monocryl suture. Dermabond dressings was applied. Patient top she will well and sent to recovery room stable condition
[2019-05-18 09:43] VITALS: RESP 16
[2019-05-18 10:22] VITALS: BP 124/76; PULSE 87
[2019-05-18] MEDS ORDERED: HYDROcodone/APAP 5-325MG 1 EACH TAB PO ONE (10:30)
== END 2019-05-18 11:03 | disposition home or self-care (01) ==
LOC: OR 06:21
PROVIDERS: ATTEND Surgery
DX: R13.10 Dysphagia, unspecified (principal); Z46.51 Encounter for fitting and adjustment of gastric lap band; I48.91 Unspecified atrial fibrillation; I10 Essential (primary) hypertension; G47.33 Obstructive sleep apnea (adult) (pediatric); Z87.442 Personal history of urinary calculi; Z98.890 Other specified postprocedural states; Z90.49 Acquired absence of other specified parts of digestive tract; Z87.898 Personal history of other specified conditions; Z86.79 Personal history of other diseases of the circulatory system; Z80.1 Family history of malignant neoplasm of trachea, bronchus and lung; Z83.438 Family history of other disorder of lipoprotein metabolism and other lipidemia; Z82.49 Family history of ischemic heart disease and other diseases of the circulatory system
CPT/HCPCS: 43774; J2250; J0330; J1644; J1100; J0690; J2405; J3010; J1885; J2704

== ENCOUNTER → 2019-05-28 | Outpatient (CLI) | payer BC ==
[2019-05-28 13:12] VITALS: BP 125/79; PULSE 99; RESP 16; TEMP 98.5; BMI 47.3
--- NOTE | 2019-05-28 16:07 | P.HPBAR ---
Bariatric H&P - History & Physicial H&P Date: 05/28/19 History & Physicial: Visit/CC: BAND REMOVAL F/U Patient initial contact: Initial weight: 149.549 kg Initial weight in pounds: 329.70 Height: 5 ft 7.5 in Initial BMI: 50.8 Last weight: Current weight: 139.253 kg Current weight in pounds: 307.00 Current BMI: 47.3 [place] body weight (based on NIH guidelines): 68.492 kg Excess body weight loss: 12.7% The patient is a 34 year-old M who presents for Bariatric Assessment. Patient status post LAP-BAND explantation. He is keen 17 pounds since his band was removed. Past Medical History Past Medical History: Atrial Fibrillation, Hypertension, Sleep Apnea/CPAP/BIPAP Additional Past Medical History / Comment(s): HX OF HTN (NO CURRENT MEDS), kidney stone June 2016, History of Any Multi-Drug Resistant Organisms: None Reported Past Surgical History: Bariatric Surgery, Cardiac Ablation, Cholecystectomy Additional Past Surgical History / Comment(s): 02/28/15 gastric lap banding. lap band removal 117 Past Anesthesia/Blood Transfusion Reactions: No Reported Reaction, Motion Sickness Past Psychological History: No Psychological Hx Reported Additional Psychological History / Comment(s): . Smoking Status: Never smoker Past Alcohol Use History: Occasional Past Drug Use History: None Reported - Past Family History Mother Family Medical History: Cancer Additional Family Medical History / Comment(s): LUNG CANCER-. Father Family Medical History: Hyperlipidemia, Hypertension Surgical - Exam Vital Signs Temp Pulse Resp BP 98.5 F 99 16 125/79 05/28/19 13:10 05/28/19 13:10 05/28/19 13:10 05/28/19 13:10 - General well developed, well nourished, no distress - Eyes PERRL - Abdomen Abdomen: soft, non tender Bariatric Assessment & Plan Plan: Patient LAP-BAND was then removed. Patient will follow-up in 3 months for recheck. His BMI is 47. Bariatric Checklist Checklist: Plan: Checklist: EGD: 1. Hiatal hernia: 2. H. Pylori: HgbA1c: Vitamin D: Smoking: Never smoker Primary care physician referral: sivakumar mcleod Psychiatry clearance: Cardiology clearance: Sleep study: Diet journal: VTE risk score: VTE risk level: Rehab needs at discharge:
== END | disposition home or self-care (01) ==
LOC: BARWHC3 13:00
PROVIDERS: ATTEND Surgery
DX: Z46.51 Encounter for fitting and adjustment of gastric lap band (principal); Z98.84 Bariatric surgery status; Z90.49 Acquired absence of other specified parts of digestive tract
CPT/HCPCS: 99211

== ENCOUNTER → 2020-06-02 | Outpatient (CLI) | payer BC ==
--- NOTE | 2020-06-02 11:29 | US ---
EXAMINATION TYPE: US venous doppler duplex LE RT DATE OF EXAM: 06/02/2020 11:08 AM COMPARISON: NONE CLINICAL HISTORY: R22.41 SWELLING MASS LUMP. Redness at ankle. No hx DVT. SIDE PERFORMED: Right TECHNIQUE: The lower extremity deep venous system is examined utilizing real time linear array sonog cierra with graded compression, doppler sonography and color-flow sonography. VESSELS IMAGED: Common Femoral Vein Deep Femoral Vein Greater Saphenous Vein * Femoral Vein Popliteal Vein Small Saphenous Vein * Proximal Calf Veins (* superficial vessels) Right Leg: Negative for DVT IMPRESSION: No evidence of DVT at this time.
== END | disposition home or self-care (01) ==
LOC: RADUSWWP 10:48
PROVIDERS: ATTEND Family Medicine
DX: R22.41 Localized swelling, mass and lump, right lower limb (principal)

== ENCOUNTER → 2021-03-09 | Outpatient (CLI) | payer BC ==
[2021-03-09 15:46] LABS: ALT 67 U/L (4-49); AST 48 U/L (17-59); African American GFR (CKD) >90 (>60 ml/min/1.73 sqM); Albumin/Globulin Ratio 1.6; Alkaline Phosphatase 88 U/L (38-126); Anion Gap 14 mmol/L; Blood Urea Nitrogen 15 mg/dL (9-20); Calcium 10.3 mg/dL (8.4-10.2); Carbon Dioxide 23 mmol/L (22-30); Chloride 101 mmol/L (98-107); Globulin 3.2 g/dL; Glucose 101 mg/dL (74-99); Non-African American GFR(CKD) >90 (>60 ml/min/1.73 sqM); Sodium 138 mmol/L (137-145); Total Bilirubin 2.5 mg/dL (0.2-1.3); Total Protein 8.2 g/dL (6.3-8.2)
[2021-03-09 15:47] LABS: Potassium 4.4 mmol/L (3.5-5.1)
[2021-03-09 15:51] LABS: Basophils # (A) 0.2 k/uL (0-0.2); Basophils % (A) 1 %; Eosinophils # (A) 0.2 k/uL (0-0.7); Eosinophils % (A) 1 %; HCT 53.5 % (39.0-53.0); HGB 18.8 gm/dL (13.0-17.5); Lymphocytes # (A) 1.7 k/uL (1.0-4.8); Lymphocytes % (A) 6 %; MCH 30.4 pg (25.0-35.0); MCHC 35.1 g/dL (31.0-37.0); MCV 86.7 fL (80.0-100.0); Mean Platelet Volume 8.4; Monocytes % (A) 3 %; Neutrophils # (A) 28.5 k/uL (1.3-7.7); Neutrophils % (A) 90 %; Platelet Count 236 k/uL (150-450); RBC 6.18 m/uL (4.30-5.90); RDW 13.2 % (11.5-15.5); WBC 31.8 k/uL (3.8-10.6)
== END | disposition home or self-care (01) ==
LOC: LABWHC1 15:01
PROVIDERS: ATTEND Physician Assistant Medical
DX: L03.116 Cellulitis of left lower limb (principal)
CPT/HCPCS: 36415; 80053; 85025; 87040

== ENCOUNTER 2021-03-10 09:46 | Observation (INO) | payer BC ==
[2021-03-10] MEDS ORDERED: cefTRIAXone IN SWFI 1,000 MG/10 ML SYRINGE IVP STA (13:16)
[2021-03-10] MEDS ORDERED: VANCOMYCIN IV PER PHARMACY 1 EACH MISC MISCELLANE PRN (13:17)
[2021-03-10] MEDS ORDERED: VANCOMYCIN 2,250 MG in SODIUM CHLORIDE 0.9% 500 ML 500 ML IVPB STA (13:29)
--- NOTE | 2021-03-10 13:46 | ED ---
Skin/Abscess/FB HPI - General Chief complaint: Skin/Abscess/Foreign Body Stated complaint: lt foot infection Time Seen by Provider: 03/10/21 12:40 Source: patient, RN notes reviewed, old records reviewed Mode of arrival: ambulatory Limitations: no limitations - History of Present Illness Initial comments: Patient is a 35-year-old male with history of A. fib, hypertension, presenting to the emergency department with a worsening left foot infection. Patient states over the weekend he noticed some mild pain and redness in his left foot, he woke up Tuesday, 2 nights ago with fever, chills. He saw his doctor yesterday who was given a shot of antibiotics and was started on Keflex and Bactrim. PCPs office did blood work as well as blood cultures, he got a call today that his white blood cell count was really high and recommended going into the ER for further evaluations. He states the swelling in his left foot has also increased, the redness has also been spreading. He denies any further fevers however he seems to have some mild diaphoresis. He denies any cuts of his left foot, he thought he might have some mild athlete's foot. No further complaints at this time. Arrival to the ER, symptoms 99.0, pulse is 98, 93% on room air. - Related Data Home Medications Medication Instructions Recorded Confirmed Anastrozole [Arimidex] 1 mg PO MOWEFR 03/10/21 03/10/21 Atorvastatin [Lipitor] 20 mg PO DAILY 03/10/21 03/10/21 Cephalexin [Keflex] 500 mg PO QID 03/10/21 03/10/21 Losartan Potassium 100 mg PO DAILY 03/10/21 03/10/21 Sulfamethox-Tmp 800-160Mg [Bactrim 1 tab PO BID 03/10/21 03/10/21 DS 800-160 mg] Testosterone Cypionate 200 mg IM Q14D 03/10/21 03/10/21 [Depo-Testosterone] hydroCHLOROthiazide 25 mg PO DAILY 03/10/21 03/10/21 Allergies Allergy/AdvReac Type Severity Reaction Status Date / Time No Known Allergies Allergy Verified 03/10/21 13:36 Review of Systems ROS Statement: Those systems with pertinent positive or pertinent negative responses have been documented in the HPI. ROS Other: All systems not noted in ROS Statement are negative. Past Medical History Past Medical History: Atrial Fibrillation, Hypertension, Sleep Apnea/CPAP/BIPAP Additional Past Medical History / Comment(s): HX OF HTN (NO CURRENT MEDS), kidney stone June 2016, History of Any Multi-Drug Resistant Organisms: None Reported Past Surgical History: Bariatric Surgery, Cardiac Ablation, Cholecystectomy Additional Past Surgical History / Comment(s): 02/28/15 gastric lap banding. lap band removal 117/20 Past Anesthesia/Blood Transfusion Reactions: No Reported Reaction, Motion Sickness Past Psychological History: No Psychological Hx Reported Smoking Status: Never smoker Past Alcohol Use History: Occasional Past Drug Use History: None Reported - Past Family History Mother Family Medical History: Cancer Additional Family Medical History / Comment(s): LUNG CANCER-. Father Family Medical History: Hyperlipidemia, Hypertension General Exam - General Exam Comments Initial Comments: GENERAL: Patient is well-developed and well-nourished. Patient is nontoxic and in no acute distress. HEAD: Atraumatic, normocephalic. EYES: Pupils equal round and reactive to light, extraocular movements intact, sclera anicteric, conjunctiva are normal. Eyelids were unremarkable. ENT: Moist mucous membranes. NECK: Normal range of motion, supple without lymphadenopathy or JVD. LUNGS: Unlabored respirations. Breath sounds clear to auscultation bilaterally and equal. No wheezes rales or rhonchi. HEART: Regular rate and rhythm without murmurs, rubs or gallops. ABDOMEN: Soft, nontender, normoactive bowel sounds. No guarding, no rebound. No masses appreciated. MUSCULOSKELETAL: Patient has swelling of his left foot and into the left lower leg, neurovascular intact. No clubbing or cyanosis. NEUROLOGICAL: Patient is alert and oriented x 3. Normal speech, normal gait. PSYCH: Normal mood, normal affect. SKIN: Warm, Dry, normal turgor, no rashes. He has significant erythema of the left dorsal foot extending up into the left lower leg and also wrapping around to the posterior aspect. Limitations: no limitations Course Vital Signs 03/10/21 09:58 Temperature 99.0 F Pulse Rate 98 Respiratory 18 Rate Blood Pressure 157/90 O2 Sat by Pulse 93 L Oximetry Medical Decision Making - Medical Decision Making Patient is a 35-year-old male with history of hypertension, presenting for worsening left foot infection. He had fevers and chills over the weekend, increased pain and swelling. Lab work from yesterday at his PCPs office resulted in a 35,000 white count, they did do blood cultures, those are pending at this time. He states in the past 24 hours the swelling and redness is definitely increased. He was started on Keflex and Bactrim yesterday as well as a shot of Rocephin. Patient will be admitted for IV antibiotics, patient started by Dr. Valenzuela. Case discussed with Dr. Holm. - Lab Data Result diagrams: 03/10/21 13:54 03/10/21 13:54 Disposition Clinical Impression: Cellulitis of left foot, Left leg cellulitis, Leukocytosis Disposition: ADMITTED IP TO THIS [facility] Condition: Stable Decision Date: 03/10/21 Decision Time: 13:50
[2021-03-10] MEDS ORDERED: IBUPROFEN 400 MG TAB PO PRN (13:47)
[2021-03-10] MEDS ORDERED: ONDANSETRON 4 MG/2 ML VIAL IVP PRN (13:47)
[2021-03-10] MEDS ORDERED: NALOXONE 0.4 MG/ML 1 ML VIAL IV PRN ×2 (13:47→14:24)
[2021-03-10] MEDS ORDERED: ACETAMINOPHEN TAB 325 MG TAB PO PRN ×2 (13:47→14:24)
[2021-03-10] MEDS ORDERED: KETOROLAC 15 MG/ML 1 ML VIAL IVP PRN (13:47)
[2021-03-10 14:13] LABS: Basophils # (A) 0.1 k/uL (0-0.2); Basophils % (A) 0 %; Eosinophils # (A) 0.2 k/uL (0-0.7); Eosinophils % (A) 1 %; HCT 51.6 % (39.0-53.0); HGB 17.7 gm/dL (13.0-17.5); Lymphocytes # (A) 2.5 k/uL (1.0-4.8); Lymphocytes % (A) 14 %; MCH 29.9 pg (25.0-35.0); MCHC 34.3 g/dL (31.0-37.0); MCV 87.1 fL (80.0-100.0); Mean Platelet Volume 8.4; Monocytes # (A) 0.7 k/uL (0-1.0); Monocytes % (A) 4 %; Neutrophils # (A) 14.1 k/uL (1.3-7.7); Neutrophils % (A) 79 %; Platelet Count 204 k/uL (150-450); RBC 5.92 m/uL (4.30-5.90); RDW 12.7 % (11.5-15.5); WBC 17.8 k/uL (3.8-10.6)
--- NOTE | 2021-03-10 14:36 | P.HPIM ---
History of Present Illness H&P Date: 03/10/21 Chief Complaint: leg pain 35-year-old male with history of A. fib, hypertension, presenting to the emergency department with a worsening left foot/leg infection. Patient states over the weekend he noticed some mild pain and redness in his left foot, he woke up Tuesday, 2 nights ago with fever, chills. He saw his doctor yesterday who was given a shot of antibiotics and was started on Keflex and Bactrim. PCPs office did blood work as well as blood cultures, he got a call today that his white blood cell count was really high and recommended going into the ER for further evaluations. He states the swelling in his left foot has also increased, the redness has also been spreading. He denies any further fevers however he seems to have some mild diaphoresis. He denies any cuts of his left foot, he thought he might have some mild athlete's foot. He just started exercising at [employer] 2 weeks ago. Arrival to the ER, temp was 99.0, pulse is 98, 93% [place]BC [place] [address]. Rest of labs ok, he was admitted for further eval and management. Review of Systems Complete review of system performed, pertinent positives per HPI, otherwise negative Past Medical History Past Medical History: Atrial Fibrillation, Hypertension, Sleep Apnea/CPAP/BIPAP Additional Past Medical History / Comment(s): HX OF HTN (NO CURRENT MEDS), kidney stone June 2016, History of Any Multi-Drug Resistant Organisms: None Reported Past Surgical History: Bariatric Surgery, Cardiac Ablation, Cholecystectomy Additional Past Surgical History / Comment(s): 02/28/15 gastric lap banding. lap band removal 117/ Past Anesthesia/Blood Transfusion Reactions: No Reported Reaction, Motion Sic kness Past Psychological History: No Psychological Hx Reported Smoking Status: Never smoker Past Alcohol Use History: Occasional Past Drug Use History: None Reported - Past Family History Mother Family Medical History: Cancer Additional Family Medical History / Comment(s): LUNG CANCER-. Father Family Medical History: Hyperlipidemia, Hypertension Medications and Allergies Home Medications Medication Instructions Recorded Confirmed Type Anastrozole [Arimidex] 1 mg PO MOWEFR 03/10/21 03/10/21 History Atorvastatin [Lipitor] 20 mg PO DAILY 03/10/21 03/10/21 History Cephalexin [Keflex] 500 mg PO QID 03/10/21 03/10/21 History Losartan Potassium 100 mg PO DAILY 03/10/21 03/10/21 History Sulfamethox-Tmp 800-160Mg [Bactrim 1 tab PO BID 03/10/21 03/10/21 History DS 800-160 mg] Testosterone Cypionate 200 mg IM Q14D 03/10/21 03/10/21 History [Depo-Testosterone] hydroCHLOROthiazide 25 mg PO DAILY 03/10/21 03/10/21 History Allergies Allergy/AdvReac Type Severity Reaction Status Date / Time No Known Allergies Allergy Verified 03/10/21 13:36 Physical Exam Vitals: Vital Signs Temp Pulse Resp BP Pulse Ox 03/10/21 09:58 99.0 F 98 18 157/90 93 L Intake and Output 03/09/21 03/10/21 03/10/21 22:59 06:59 14:59 Other: Weight 136.078 kg Constitutional: No acute distress, conversant, pleasant Eyes:Anicteric sclerae, moist conjunctiva, no lid-lag, PERRLA, ENMT: Oropharynx clear, no erythema, exudates Neck: Supple, FROM, no masses, or JVD, No carotid bruits, No thyromegaly Lungs: Clear to auscultation, Clear to percussion, Normal respiratory effort, no accessory muscle use Cardiovascular: Heart regular in rate and rhythm, No murmurs, gallops, or rubs, No peripheral edema Abdominal: Soft, Nontender, no guarding, rebound or rigidity, Normoactive bowel sounds, No hepatomegaly, No splenomegaly, No palpable mass Skin: Normal temperature, tone, texture, turgor, no induration, No subcutaneous nodules, No rash, lesions, No ulcers Extremities: Left leg with tenderness and redness from the ankle up to the knee. No digital cyanosis, No clubbing, Pedal pulses intact and symmetrical, Radial pulses intact and symmetrical, No calf tenderness Psychiatric: Alert and oriented to person, place and time, appropriate affect, intact judgement Neuro: Muscles Strength 5/5 in all 4 extremities, Sensation to light touch grossly present throughout, Cranial nerves II-XII grossly intact, no focal sensory deficits Results CBC & Chem 7: 03/10/21 13:54 Labs: Abnormal Lab Results - Last 24 Hours (Table) 03/10/21 Range/Units 13:54 WBC 17.8 H (3.8-10.6) k/uL RBC 5.92 H (4.30-5.90) m/uL Hgb 17.7 H (13.0-17.5) gm/dL Neutrophils # 14.1 H (1.3-7.7) k/uL Assessment and Plan Plan: Sepsis secondary to left leg cellulitis IV fluids Vancomycin Blood cultures Check lactic acid Rule out MRSA Testosterone deficiency on testosterone replacement Hypertension, essential not taking medications Stable Resume meds Obesity Outpatient structured weight loss Admit to inpatient, expected length of stay more than 2 midnights Anticipate discharge: 2-3 days Disposition: home
[2021-03-10 14:38] LABS: ALT 53 U/L (4-49); AST 35 U/L (17-59); African American GFR (CKD) >90 (>60 ml/min/1.73 sqM); Albumin 4.3 g/dL (3.5-5.0); Alkaline Phosphatase 90 U/L (38-126); Anion Gap 10 mmol/L; Blood Urea Nitrogen 15 mg/dL (9-20); Calcium 9.8 mg/dL (8.4-10.2); Carbon Dioxide 26 mmol/L (22-30); Chloride 103 mmol/L (98-107); Glucose 98 mg/dL (74-99); Non-African American GFR(CKD) >90 (>60 ml/min/1.73 sqM); Potassium 4.4 mmol/L (3.5-5.1); Sodium 139 mmol/L (137-145); Total Bilirubin 1.1 mg/dL (0.2-1.3); Total Protein 7.4 g/dL (6.3-8.2)
[2021-03-10 14:52] LABS: C Reactive Protein 20.5 mg/dL (<1.0)
[2021-03-10 15:27] LABS: Erythrocyte Sedimentation Rate 18 mm/hr (0-15)
[2021-03-10] MEDS: SODIUM CHLORIDE 0.9% 1,000 ML IV SCH ×2 (16:11→21:30)
[2021-03-10] MEDS: IBUPROFEN 400 MG TAB PO PRN (20:55)
[2021-03-10] MEDS: VANCOMYCIN 2,000 MG in SODIUM CHLORIDE 0.9% 500 ML 500 ML IVPB SCH (23:39)
[2021-03-11 05:45] LABS: Basophils % (A) 0 %; Eosinophils # (A) 0.2 k/uL (0-0.7); Eosinophils % (A) 2 %; HCT 50.2 % (39.0-53.0); HGB 16.4 gm/dL (13.0-17.5); Lymphocytes # (A) 2.7 k/uL (1.0-4.8); Lymphocytes % (A) 24 %; MCH 29.1 pg (25.0-35.0); MCHC 32.7 g/dL (31.0-37.0); Mean Platelet Volume 8.1; Monocytes # (A) 0.6 k/uL (0-1.0); Monocytes % (A) 6 %; Neutrophils # (A) 7.5 k/uL (1.3-7.7); Neutrophils % (A) 67 %; Platelet Count 198 k/uL (150-450); RBC 5.64 m/uL (4.30-5.90); RDW 12.7 % (11.5-15.5); WBC 11.2 k/uL (3.8-10.6)
[2021-03-11] MEDS: LOSARTAN 50 MG TAB PO SCH (08:43)
[2021-03-11] MEDS: ATORVASTATIN 20 MG TAB PO SCH (08:43)
[2021-03-11] MEDS: SODIUM CHLORIDE 0.9% 1,000 ML IV SCH ×3 (08:44→18:16)
[2021-03-11] MEDS: VANCOMYCIN 2,000 MG in SODIUM CHLORIDE 0.9% 500 ML 500 ML IVPB SCH ×2 (11:51→23:51)
[2021-03-11 12:53] LABS: African American GFR (CKD) 81.9 (60.0-200.0); Albumin 3.9 g/dL (3.8-4.9); Albumin/Globulin Ratio 1.77 (1.60-3.17); Anion Gap 11.6 mmol/L (4.00-12.00); BUN/Creat Ratio 9.92 Ratio (12.00-20.00); Blood Urea Nitrogen 12.9 mg/dL (9.0-27.0); Calcium 9.3 mg/dL (8.7-10.3); Carbon Dioxide 21.4 mmol/L (21.6-31.8); Globulin 2.2 g/dL (1.6-3.3); Magnesium 2.2 mg/dL (1.5-2.4); Non-African American GFR(CKD) 70.7 (60.0-200.0); Potassium 4.4 mmol/L (3.5-5.5); Total Bilirubin 0.5 mg/dL (0.30-1.20); Total Protein 6.1 g/dL (6.2-8.2)
--- NOTE | 2021-03-11 13:27 | P.PN ---
Subjective Progress Note Date: 03/11/21 Principal diagnosis: Left leg swelling and redness Patient is feeling worse today, he stated that the swelling and redness in the left leg has gotten worse and were spreading compared to yesterday. Objective - Vital Signs Vital signs: Vital Signs Temp 98.2 F 03/11/21 12:52 Pulse 87 03/11/21 12:52 Resp 18 03/11/21 12:52 BP 156/87 03/11/21 12:52 Pulse Ox 93 L 03/11/21 12:52 Intake & Output 03/10/21 03/11/21 03/11/21 18:59 06:59 18:59 Weight 136.078 kg Other: Voiding Method Toilet Toilet # Voids 2 - Exam Constitutional: No acute distress, conversant, pleasant Eyes:Anicteric sclerae, moist conjunctiva, no lid-lag, PERRLA, ENMT: Oropharynx clear, no erythema, exudates Neck: Supple, FROM, no masses, or JVD, No carotid bruits, No thyromegaly Lungs: Clear to auscultation, Clear to percussion, Normal respiratory effort, no accessory muscle use Cardiovascular: Heart regular in rate and rhythm, No murmurs, gallops, or rubs, No peripheral edema Abdominal: Soft, Nontender, no guarding, rebound or rigidity, Normoactive bowel sounds, No hepatomegaly, No splenomegaly, No palpable mass Skin: Normal temperature, tone, texture, turgor, no induration, No subcutaneous nodules, No rash, lesions, No ulcers Extremities: Left leg with tenderness and redness from the ankle up to the knee. No digital cyanosis, No clubbing, Pedal pulses intact and symmetrical, Radial pulses intact and symmetrical, No calf tenderness Psychiatric: Alert and oriented to person, place and time, appropriate affect, intact judgement Neuro: Muscles Strength 5/5 in all 4 extremities, Sensation to light touch grossly present throughout, Cranial nerves II-XII grossly intact, no focal sensory deficits - Labs CBC & Chem 7: 03/11/21 05:10 03/11/21 05:10 Labs: Abnormal Lab Results - Last 24 Hours (Table) 03/10/21 03/10/21 03/11/21 Range/Units 13:54 13:54 05:10 WBC 17.8 H 11.2 H (3.8-10.6) k/uL RBC 5.92 H (4.30-5.90) m/uL Hgb 17.7 H (13.0-17.5) gm/dL Neutrophils # 14.1 H (1.3-7.7) k/uL ESR 18 H (0-15) mm/hr Carbon Dioxide (21.6-31.8) mmol/L BUN/Creatinine Ratio (12.00-20.00) Ratio ALT 53 H (4-49) U/L C-Reactive Protein 20.5 H (<1.0) mg/dL Total Protein (6.2-8.2) g/dL 03/11/21 Range/Units 05:10 WBC (3.8-10.6) k/uL RBC (4.30-5.90) m/uL Hgb (13.0-17.5) gm/dL Neutrophils # (1.3-7.7) k/uL ESR (0-15) mm/hr Carbon Dioxide 21.4 L (21.6-31.8) mmol/L BUN/Creatinine Ratio 9.92 L (12.00-20.00) Ratio ALT (4-49) U/L C-Reactive Protein (<1.0) mg/dL Total Protein 6.1 L (6.2-8.2) g/dL Assessment and Plan Plan: Sepsis secondary to left leg cellulitis IV fluids Continue Vancomycin, add ceftriaxone Lactic acid ok Testosterone deficiency on testosterone replacement Hypertension, essential not taking medications Stable Resume meds Obesity Outpatient structured weight loss Anticipate discharge: 1-2 days Disposition: home
--- NOTE | 2021-03-11 14:00 | US ---
EXAMINATION TYPE: US venous doppler duplex LE LT DATE OF EXAM: 03/11/2021 1:46 PM COMPARISON: NONE CLINICAL HISTORY: Swelling. known left lower leg cellulitis SIDE PERFORMED: Left TECHNIQUE: The lower extremity deep venous system is examined utilizing real time linear array sonog cierra with graded compression, doppler sonography and color-flow sonography. VESSELS IMAGED: Common Femoral Vein Deep Femoral Vein Greater Saphenous Vein * Femoral Vein Popliteal Vein Small Saphenous Vein * Proximal Calf Veins (* superficial vessels) Left Leg: Negative for DVT IMPRESSION: Grayscale, color doppler, spectral doppler imaging performed of the deep veins of the lo wer extremities. There is normal flow, compressibility, vascular waveforms.
[2021-03-12] MEDS: SODIUM CHLORIDE 0.9% 1,000 ML IV SCH ×4 (02:52→20:31)
[2021-03-12] MEDS: LOSARTAN 50 MG TAB PO SCH (08:49)
[2021-03-12] MEDS: ATORVASTATIN 20 MG TAB PO SCH (08:49)
[2021-03-12] MEDS ORDERED: VANCOMYCIN TROUGH DUE 1 EACH MISC MISCELLANE ONE (11:00)
[2021-03-12 11:33] LABS: African American GFR (CKD) >90 (>60 ml/min/1.73 sqM); Non-African American GFR(CKD) >90 (>60 ml/min/1.73 sqM)
[2021-03-12] MEDS: VANCOMYCIN 2,000 MG in SODIUM CHLORIDE 0.9% 500 ML 500 ML IVPB SCH ×2 (12:28→20:29)
--- NOTE | 2021-03-12 16:50 | P.PN ---
Subjective Progress Note Date: 03/12/21 Principal diagnosis: Left leg swelling and redness Patient is feeling better today. Redness and swelling in his left leg has improved. No fevers, no overnight events. Objective - Vital Signs Vital signs: Vital Signs Temp 98.5 F 03/12/21 12:18 Pulse 87 03/12/21 12:18 Resp 18 03/12/21 12:18 BP 154/92 03/12/21 12:18 Pulse Ox 96 03/12/21 12:18 Intake & Output 03/11/21 03/12/21 03/12/21 18:59 06:59 18:59 Intake Total 1040 200 Balance 1040 200 Intake: Oral 1040 200 Other: Voiding Method Toilet Toilet # Voids 2 2 - Exam Constitutional: No acute distress, conversant, pleasant Eyes:Anicteric sclerae, moist conjunctiva, no lid-lag, PERRLA, ENMT: Oropharynx clear, no erythema, exudates Neck: Supple, FROM, no masses, or JVD, No carotid bruits, No thyromegaly Lungs: Clear to auscultation, Clear to percussion, Normal respiratory effort, no accessory muscle use Cardiovascular: Heart regular in rate and rhythm, No murmurs, gallops, or rubs, No peripheral edema Abdominal: Soft, Nontender, no guarding, rebound or rigidity, Normoactive bowel sounds, No hepatomegaly, No splenomegaly, No palpable mass Skin: Normal temperature, tone, texture, turgor, no induration, No subcutaneous nodules, No rash, lesions, No ulcers Extremities: Left leg with tenderness and redness from the ankle up to the knee. No digital cyanosis, No clubbing, Pedal pulses intact and symmetrical, Radial pulses intact and symmetrical, No calf tenderness Psychiatric: Alert and oriented to person, place and time, appropriate affect, intact judgement Neuro: Muscles Strength 5/5 in all 4 extremities, Sensation to light touch grossly present throughout, Cranial nerves II-XII grossly intact, no focal sensory deficits - Labs CBC & Chem 7: 03/11/21 05:10 03/12/21 10:44 Assessment and Plan Plan: Sepsis secondary to left leg cellulitis IV fluids No DVT on Doppler ultrasound Continue Vancomycin, ceftriaxone Lactic acid ok Testosterone deficiency on testosterone replacement Hypertension, essential not taking medications Stable Resume meds Obesity Outpatient structured weight loss Anticipate discharge: Tomorrow Disposition: home
[2021-03-12 20:54] VITALS: RESP 20
[2021-03-12] MEDS: IBUPROFEN 400 MG TAB PO PRN (22:15)
[2021-03-13] MEDS: SODIUM CHLORIDE 0.9% 1,000 ML IV SCH (03:16)
[2021-03-13 05:22] VITALS: BP 138/79; PULSE 70; TEMP 97.6
[2021-03-13] MEDS: VANCOMYCIN 2,000 MG in SODIUM CHLORIDE 0.9% 500 ML 500 ML IVPB SCH (06:03)
[2021-03-13] MEDS: ATORVASTATIN 20 MG TAB PO SCH (08:12)
[2021-03-13] MEDS: LOSARTAN 50 MG TAB PO SCH (08:12)
--- NOTE | 2021-03-13 10:49 | P.DS ---
Providers Date of admission: 03/10/21 13:33 Expected date of discharge: 03/13/21 Attending physician: Arun Valenzuela MD Primary care physician: Raul [facility] Course: 35-year-old male with history of A. fib, hypertension, presenting to the emergency department with a worsening left foot/leg infection. Patient states over the weekend he noticed some mild pain and redness in his left foot, had fever, chills. He saw his doctor who gave him a shot of antibiotics and was started on Keflex and Bactrim. PCPs office did blood work as well as blood cultures, then he got a call that his white blood cell count was really high and was advised to go to the ER for further evaluations. He states the swelling in his left foot has also increased, the redness has also been spreading. No cuts of his left foot, he thought he might have some mild athlete's foot. He just started exercising at [employer] 2 weeks ago. In the ER, temp was 99.0, pulse is 98, 93% [place] [address]. Rest of labs ok, he was admitted for further eval and management. He was started on vancomycin and ceftriaxone was later added. He did not spike any fevers during the hospitalization. The cellulitis has improved significantly with the above treatment. His WBC count improved to 11.2 the next morning. Doppler ultrasound was done on the left lower extremity and that did not show DVT. He is currently doing well, the swelling and redness in his left leg is much better. He will be discharged home in a stable condition. Time for discharge 35 minutes. Patient Condition at Discharge: Stable Plan - Discharge Summary Discharge Rx Participant: No New Discharge Prescriptions: Continue Atorvastatin [Lipitor] 20 mg PO DAILY Sulfamethox-Tmp 800-160Mg [Bactrim DS 800-160 mg] 1 tab PO BID Losartan Potassium 100 mg PO DAILY Testosterone Cypionate [Depo-Testosterone] 200 mg IM Q14D Anastrozole [Arimidex] 1 mg PO MOWEFR Cephalexin [Keflex] 500 mg PO QID hydroCHLOROthiazide 25 mg PO DAILY Discharge Medication List Anastrozole [Arimidex] 1 mg PO MOWEFR 03/10/21 [History] Atorvastatin [Lipitor] 20 mg PO DAILY 03/10/21 [History] Cephalexin [Keflex] 500 mg PO QID 03/10/21 [History] Losartan Potassium 100 mg PO DAILY 03/10/21 [History] Sulfamethox-Tmp 800-160Mg [Bactrim DS 800-160 mg] 1 tab PO BID 03/10/21 [History] Testosterone Cypionate [Depo-Testosterone] 200 mg IM Q14D 03/10/21 [History] hydroCHLOROthiazide 25 mg PO DAILY 03/10/21 [History] Follow up Appointment(s)/Referral(s): Raul Newby MD [Primary Care Provider] - 1-2 days
[2021-03-14] MEDS ORDERED: VANCOMYCIN TROUGH DUE 1 EACH MISC MISCELLANE ONE (04:00)
== END 2021-03-13 12:16 | disposition home or self-care (01) ==
LOC: EC 09:46 → 5NMEDONC 13:33 → INTOOBSV 13:33 → 5NMEDONC 23:47 → UNDODISIN 03-13 12:16
PROVIDERS: ADMIT Internal Medicine; ATTEND Internal Medicine
DX: A41.9 Sepsis, unspecified organism (principal); L03.116 Cellulitis of left lower limb; I10 Essential (primary) hypertension; I48.91 Unspecified atrial fibrillation; E29.1 Testicular hypofunction; E66.9 Obesity, unspecified; Z68.42 Body mass index [BMI] 45.0-49.9, adult; Z79.899 Other long term (current) drug therapy; G47.30 Sleep apnea, unspecified; Z90.49 Acquired absence of other specified parts of digestive tract; Z98.84 Bariatric surgery status; Z80.1 Family history of malignant neoplasm of trachea, bronchus and lung; Z82.49 Family history of ischemic heart disease and other diseases of the circulatory system
CPT/HCPCS: 96361; 96366 ×4; 96367; 96376; 96365; 99284; 36415; 80053 ×2; 85652; 82565; 83605; 83735; 85025 ×2; 80202; 86140; 87635; 93971; G0378 ×4; J3370 ×4; J0696 ×4

== ENCOUNTER → 2021-03-23 | Outpatient (CLI) | payer BC ==
[~2021-03-23] MED LIST changes: +BAMLANIVIMAB (EUA) 700 MG, ETESEVIMAB (EUA) 1,400 MG in SODIUM CHLORIDE 0.9% 50 ML IVPB NR; -DEXAMETHASONE SOD PHOSPHATE 10 MG/ML 1 ML VIAL IV ONE; -HYDROmorphone 0.5 MG/0.5 ML SYRINGE IVP PRN; -LACTATED RINGERS 1,000 ML IV SCH; -LIDOCAINE 1% 20 ML VIAL (10MG/ML) FOR IV START INTRADERMA PRN; -ONDANSETRON 4 MG/2 ML VIAL IVP ONE; +SODIUM CHLORIDE 0.9% 50 ML IVPB ONE; +SODIUM CHLORIDE 0.9% 500 ML 500 ML in EMPTY BAG 1 BAG IV PRN; -ceFAZolin 3 GM in SODIUM CHLORIDE 0.9% 100 ML IVPB ONE; -fentaNYL (PF) 50 MCG/ML 2 ML AMP IV PRN
[2021-03-23 10:38] VITALS: RESP 18; TEMP 98.9
[2021-03-23 11:40] VITALS: BP 153/76; PULSE 79
== END ==
LOC: PROCWHC3 10:10
PROVIDERS: ATTEND Nurse Practitioner Adult Health
DX: U07.1 COVID-19 (principal); I51.9 Heart disease, unspecified
CPT/HCPCS: 96360; J3490; M0243

== ENCOUNTER → 2021-09-15 | Outpatient (CLI) | payer BC ==
--- NOTE | 2021-09-16 02:15 | NM ---
EXAMINATION TYPE: NM WBC limited DATE OF EXAM: 09/15/2021 COMPARISON: NONE HISTORY: Left foot cellulitis TECHNIQUE: Following administration of 15.3 mCi Tc99m Ceretec. Images obtained 3.5 hours post injec tion. FINDINGS: There is fairly normal symmetric tracer uptake seen in the feet. No asymmetric uptake seen to suggest a pyogenic infection. There is also symmetric uptake in the lower legs. IMPRESSION: Exam fails to demonstrate a focus of pyogenic infection in the foot.
== END | disposition home or self-care (01) ==
LOC: RADNMMAIN 06:55
PROVIDERS: ATTEND Family Medicine
DX: L03.116 Cellulitis of left lower limb (principal)
CPT/HCPCS: 78300; A9569

== ENCOUNTER 2023-08-07 09:11 | Emergency (ER) | payer BC ==
[2023-08-07 09:48] LABS: Appearance,Urine Clear (Clear); Bilirubin,Urine Negative (Negative); Blood,Urine Negative (Negative); Color,Urine Colorless; Glucose,Urine (UA) Negative (Negative); Ketones,Urine Negative (Negative); Leukocyte Esterase,Urine Negative (Negative); Nitrite,Urine Negative (Negative); PH, Urine 6.5 (5.0-8.0); Protein,Urine Negative (Negative); Specific Gravity,Urine 1.003 (1.001-1.035); Urobilinogen,Urine <2.0 mg/dL (<2.0)
[2023-08-07] MEDS: SODIUM CHLORIDE 0.9% 1,000 ML IV ONE (09:50)
[2023-08-07] MEDS: FAMOTIDINE 20 MG/2 ML VIAL IV STA (09:51)
[2023-08-07 09:56] LABS: Basophils # (A) 0.1 k/uL (0-0.2); Basophils % (A) 1 %; Eosinophils # (A) 0.1 k/uL (0-0.7); Eosinophils % (A) 1 %; HCT 46.4 % (39.0-53.0); HGB 15.9 gm/dL (13.0-17.5); Lymphocytes % (A) 26 %; MCH 29.2 pg (25.0-35.0); MCHC 34.2 g/dL (31.0-37.0); MCV 85.3 fL (80.0-100.0); Mean Platelet Volume 7.9; Monocytes # (A) 0.4 k/uL (0-1.0); Monocytes % (A) 5 %; Neutrophils # (A) 4.9 k/uL (1.3-7.7); Neutrophils % (A) 65 %; Platelet Count 193 k/uL (150-450); RBC 5.44 m/uL (4.30-5.90); WBC 7.5 k/uL (3.8-10.6)
[2023-08-07] MEDS: METOCLOPRAMIDE 5 MG/ML 2 ML VIAL IVP STA (09:56)
[2023-08-07 10:07] LABS: ALT 189 U/L (4-49); AST 81 U/L (17-59); African American GFR (CKD) >90 (>60 ml/min/1.73 sqM); Albumin 4.5 g/dL (3.5-5.0); Alkaline Phosphatase 117 U/L (38-126); Amylase 74 U/L (30-110); Anion Gap 11 mmol/L; Blood Urea Nitrogen 10 mg/dL (9-20); Carbon Dioxide 24 mmol/L (22-30); Chloride 106 mmol/L (98-107); Glucose 102 mg/dL (74-99); Lipase 68 U/L (23-300); Non-African American GFR(CKD) >90 (>60 ml/min/1.73 sqM); Potassium 4.2 mmol/L (3.5-5.1); Sodium 141 mmol/L (137-145); Total Bilirubin 0.9 mg/dL (0.2-1.3); Total Protein 7.2 g/dL (6.3-8.2)
--- NOTE | 2023-08-07 10:17 | XR ---
EXAMINATION TYPE: XR chest 2V DATE OF EXAM: 08/07/2023 COMPARISON: NONE HISTORY: Chest pain TECHNIQUE: Frontal and lateral views of the chest are obtained. FINDINGS: There is no focal air space opacity. No evidence for pneumothorax. No pleural effusion. The cardiac silhouette size is within normal limits. The osseous structures are grossly intact. IMPRESSION: 1. No acute cardiopulmonary process.
--- NOTE | 2023-08-07 10:17 | XR ---
EXAMINATION TYPE: XR KUB DATE OF EXAM: 08/07/2023 COMPARISON: NONE HISTORY: Pain TECHNIQUE: Single supine KUB image of the abdomen is obtained FINDINGS: Small bowel demonstrates no evidence for dilatation or air fluid levels. Gas and fecal material is seen in non-distended colon. No convincing evidence for pneumoperitoneum. No unusual calcifications. The lung bases are clear. The osseous structures are intact. IMPRESSION: 1. Overall nonobstructive bowel gas pattern.
[2023-08-07 10:24] VITALS: RESP 18
--- NOTE | 2023-08-07 11:44 | CT ---
EXAMINATION TYPE: CT abdomen pelvis w con CT DLP: 3853.9 mGycm, Automated exposure control for dose reduction was used. DATE OF EXAM: 08/07/2023 11:10 AM COMPARISON: 11/09/2018. CLINICAL INDICATION:Male, 38 years old with history of left side pain; RUQ pain, chest pain, hx miranda , heart cath, TECHNIQUE: Axial CT abdomen pelvis w con;Sagittal and coronal reformats were created on a separate w orkstation. Contrast used:100 mL of Isovue 300 with IV Contrast, (none if empty) Oral contrast used: without Oral Contrast (none if empty) FINDINGS: LOWER CHEST: Unremarkable ABDOMEN LIVER: Diffusely hypoattenuating parenchyma. GALLBLADDER AND BILE DUCTS: The gallbladder is surgically absent. PANCREAS: Unremarkable. SPLEEN: Unremarkable. ADRENAL GLANDS: Unremarkable. KIDNEYS AND URETERS: Bilateral 1 mm renal calculi which are nonobstructing. No obstructive uropathy v isualized. PELVIS BLADDER: Unremarkable REPRODUCTIVE: Unremarkable. ABDOMEN & PELVIS STOMACH AND BOWEL: No evidence of bowel obstruction. Appendix is normal. Post surgical changes around the gastroesophageal junction with surgical clips present. PERITONEUM/RETROPERITONEUM: No evidence of pneumoperitoneum or free fluid. VASCULATURE: No evidence of aortic aneurysm. MUSCULOSKELETAL: No acute osseous abnormalities. Moderate disc degeneration changes are present throu ghout the thoracolumbar spine. LYMPH NODES: No gross evidence for lymphadenopathy. SOFT TISSUE/ABDOMINAL WALL: Right fat containing inguinal hernia. IMPRESSION: 1. No evidence for acute abdominal process. 2. Hepatic steatosis. 3. Post surgical changes gastroesophageal junction. 4. No obstructing bilateral 1 mm renal calculi.
--- NOTE | 2023-08-07 12:04 | ED ---
Abdominal Pain HPI - General Chief Complaint: Abdominal Pain Stated Complaint: abd pain/left shoulder pain Time Seen by Provider: 08/07/23 09:29 Source: patient, RN notes reviewed Mode of arrival: ambulatory Limitations: no limitations - History of Present Illness Initial Comments: 38-year-old male presents emergency department complaint left-sided abdominal pain, pressure. He states that has been going on for a while intermittently states that he had some symptoms into his chest. He states he does not feel well he has had a prior lap band placement and removal along with Niesen fundoplication. Patient states that normal bowel habits no back pain no shortness of breath no fevers or chills he has had a prior cardiac ablation, hypertension and hyperlipidemia. - Related Data Home Medications Medication Instructions Recorded Confirmed Anastrozole [Arimidex] 1 mg PO MOWEFR 03/10/21 03/23/21 Atorvastatin [Lipitor] 20 mg PO DAILY 03/10/21 03/23/21 Cephalexin [Keflex] 500 mg PO QID 03/10/21 03/23/21 Losartan Potassium 100 mg PO DAILY 03/10/21 03/23/21 Sulfamethox-Tmp 800-160Mg [Bactrim 1 tab PO BID 03/10/21 03/23/21 DS 800-160 mg] Testosterone Cypionate 200 mg IM Q14D 03/10/21 03/23/21 [Depo-Testosterone] hydroCHLOROthiazide 25 mg PO DAILY 03/10/21 03/23/21 Previous Rx's Medication Instructions Recorded Famotidine [Pepcid] 20 mg PO BID #28 tablet 08/07/23 Metoclopramide [Reglan] 10 mg PO BID #14 tab 08/07/23 Allergies Allergy/AdvReac Type Severity Reaction Status Date / Time No Known Allergies Allergy Verified 08/07/23 09:20 Review of Systems ROS Statement: Those systems with pertinent positive or pertinent negative responses have been documented in the HPI. ROS Other: All systems not noted in ROS Statement are negative. Past Medical History Past Medical History: Atrial Fibrillation, Hypertension, Sleep Apnea/CPAP/BIPAP Additional Past Medical History / Comment(s): HX OF HTN (NO CURRENT MEDS), kidney stone June 2016, History of Any Multi-Drug Resistant Organisms: None Reported Past Surgical History: Bariatric Surgery, Cardiac Ablation, Cholecystectomy Additional Past Surgical History / Comment(s): 02/28/15 gastric lap banding. lap band removal 117/20 Past Anesthesia/Blood Transfusion Reactions: No Reported Reaction, Motion Sickness Past Psychological History: No Psychological Hx Reported Smoking Status: Never smoker Past Alcohol Use History: None Reported Past Drug Use History: None Reported - Past Family History Mother Family Medical History: Cancer Additional Family Medical History / Comment(s): LUNG CANCER-. Father Family Medical History: Hyperlipidemia, Hypertension General Exam Limitations: no limitations General appearance: alert, in no apparent distress Head exam: Present: atraumatic, normocephalic, normal inspection Eye exam: Present: normal appearance, PERRL, EOMI. Absent: scleral icterus, conjunctival injection, periorbital swelling ENT exam: Present: normal exam, mucous membranes moist Neck exam: Present: normal inspection. Absent: tenderness, meningismus, lymphadenopathy Respiratory exam: Present: normal lung sounds bilaterally. Absent: respiratory distress, wheezes, rales, rhonchi, stridor Cardiovascular Exam: Present: regular rate, normal rhythm, normal heart sounds. Absent: systolic murmur, diastolic murmur, rubs, gallop, clicks GI/Abdominal exam: Present: soft, tenderness (Epigastric, left upper quadrant), normal bowel sounds. Absent: distended, guarding, rebound, rigid Course Vital Signs 08/07/23 08/07/23 08/07/23 09:16 09:52 11:58 Temperature 97.7 F Pulse Rate 83 85 77 Respiratory 18 18 18 Rate Blood Pressure 147/80 142/83 124/84 O2 Sat by Pulse 94 L 95 95 Oximetry 08/07/23 12:20 Temperature 98.0 F Pulse Rate Respiratory Rate Blood Pressure O2 Sat by Pulse Oximetry Medical Decision Making - Medical Decision Making Was pt. sent in by a medical professional or institution (, PA, SECURITY ASSURANCE ANALYST, urgent care, hospital, or assisted...) When possible be specific @ -No Did you speak to anyone other than the patient for history (EMS, parent, family, police, friend...)? What history was obtained from this source @ -No Did you review nursing and triage notes (agree or disagree)? Why? @ -I reviewed and agree with nursing and triage notes Were old charts reviewed (outside hosp., previous admission, EMS record, old EKG, old radiological studies, urgent care reports/EKG's, assisted records)? Report findings @ -No old charts were reviewed Differential Diagnosis (chest pain, altered mental status, abdominal pain women, abdominal pain men, vaginal bleeding, weakness, fever, dyspnea, syncope, headache, dizziness, GI bleed, back pain, seizure, CVA, palpatations, mental health, musculoskeletal)? @ -Differential Abdominal Pain Men: Appendicitis, cholecystitis, diverticulosis, ischemic bowel, pancreatitis, hepatitis, UTI, gastroenteritis, AAA, incarcerated hernia, bowel obstruction, co nstipation, inflammatory bowel, hepatitis, peptic ulcer disease, splenic infarction, perforated viscus, testicular torsion, this is not meant to be an all-inclusive list EKG interpreted by me (3pts min.). @ -As above X-rays interpreted by me (1pt min.). @ -Chest x-ray shows no acute cardiopulmonary process X-ray KUB shows no acute intra-abdominal process. CT interpreted by me (1pt min.). @ -[CT abdomen pelvis showing no intra-abdominal acute changes, postsurgical changes U/S interpreted by me (1pt. min.). @ -None done What testing was considered but not performed or refused? (CT, X-rays, U/S, labs)? Why? @ -None What meds were considered but not given or refused? Why? @ -None Did you discuss the management of the patient with other professionals (professionals i.e. , PA, SECURITY ASSURANCE ANALYST, lab, RT, psych nurse, marriage and family social worker, disability benefits specialist, teacher, drug abuse resistance education officer, vocational case manager)? Give summary @ -No Was smoking cessation discussed for >3mins.? @ -No Was critical care preformed (if so, how long)? @ -No Were there social determinants of health that impacted care today? How? (Homelessness, low income, unemployed, alcoholism, drug addiction, transportation, low edu. Level, literacy, decrease access to med. care, [facility], rehab)? @ -No Was there de-escalation of care discussed even if they declined (Discuss DNR or withdrawal of care, Hospice)? DNR status @ -No What co-morbidities impacted this encounter? (DM, HTN, Smoking, COPD, CAD, Cancer, CVA, ARF, Chemo, Hep., AIDS, mental health diagnosis, sleep apnea, morbid obesity)? @ -[Hypertension, hyperlipidemia Was patient admitted / discharged? Hospital course, mention meds given and route, prescriptions, significant lab abnormalities, going to OR and other pertinent info. @ -Discharge patient forward including labs, imaging, EKG no acute findings he does have multiple risk factors had some left-sided chest discomfort. He states the pain is improved I did recommend admission for cardiac rule out he states he has an appointment tomorrow he understands risk and agrees with trial of stomach meds including Reglan, Pepcid. Undiagnosed new problem with uncertain prognosis? @ -No Drug Therapy requiring intensive monitoring for toxicity (Heparin, Nitro, Insulin, Cardizem)? @ -No Were any procedures done? @ -No Diagnosis/symptom? @ -Abdominal pain Acute, or Chronic, or Acute on Chronic? @ -Acute Uncomplicated (without systemic symptoms) or Complicated (systemic symptoms)? @ -[Uncomplicated Side effects of treatment? @ -No Exacerbation, Progression, or Severe Exacerbation? @ -No Poses a threat to life or bodily function? How? (Chest pain, USA, [place], pneumonia, PE, COPD, DKA, ARF, appy, cholecystitis, CVA, Diverticulitis, Homicidal, Suicidal, threat to staff... and all critical care pts) @ -No - Lab Data Result diagrams: 08/07/23 09:49 08/07/23 09:49 Lab Results 08/07/23 08/07/23 08/07/23 Range/Units 09:42 09:49 09:49 WBC 7.5 (3.8-10.6) k/uL RBC 5.44 (4.30-5.90) m/uL Hgb 15.9 (13.0-17.5) gm/dL Hct 46.4 (39.0-53.0) % MCV 85.3 (80.0-100.0) fL MCH 29.2 (25.0-35.0) pg MCHC 34.2 (31.0-37.0) g/dL RDW 13.0 (11.5-15.5) % Plt Count 193 (150-450) k/uL MPV 7.9 Neutrophils % 65 % Lymphocytes % 26 % Monocytes % 5 % Eosinophils % 1 % Basophils % 1 % Neutrophils # 4.9 (1.3-7.7) k/uL Lymphocytes # 2.0 (1.0-4.8) k/uL Monocytes # 0.4 (0-1.0) k/uL Eosinophils # 0.1 (0-0.7) k/uL Basophils # 0.1 (0-0.2) k/uL Sodium 141 (137-145) mmol/L Potassium 4.2 (3.5-5.1) mmol/L Chloride 106 (98-107) mmol/L Carbon Dioxide 24 (22-30) mmol/L Anion Gap 11 mmol/L BUN 10 (9-20) mg/dL Creatinine 0.72 (0.66-1.25) mg/dL Est GFR (CKD-EPI)AfAm >90 (>60 ml/min/1.73 sqM) Est GFR (CKD-EPI)NonAf >90 (>60 ml/min/1.73 sqM) Glucose 102 H (74-99) mg/dL Plasma Lactic Acid [place] (0.7-2.0) mmol/L Calcium 10.0 (8.4-10.2) mg/dL Total Bilirubin 0.9 (0.2-1.3) mg/dL AST 81 H (17-59) U/L ALT 189 H (4-49) U/L Alkaline Phosphatase 117 (38-126) U/L Troponin I (0.000-0.034) ng/mL Total Protein 7.2 (6.3-8.2) g/dL Albumin 4.5 (3.5-5.0) g/dL Amylase 74 (30-110) U/L Lipase 68 (23-300) U/L Urine Color Colorless Urine Appearance Clear (Clear) Urine pH 6.5 (5.0-8.0) Ur Specific [place] 1.003 (1.001-1.035) Urine Protein Negative (Negative) Urine Glucose (UA) Negative (Negative) Urine Ketones Negative (Negative) Urine Blood Negative (Negative) Urine Nitrite Negative (Negative) Urine Bilirubin Negative (Negative) Urine Urobilinogen <2.0 (<2.0) mg/dL Ur Leukocyte Esterase Negative (Negative) 08/07/23 08/07/23 Range/Units 09:49 09:49 WBC (3.8-10.6) k/uL RBC (4.30-5.90) m/uL Hgb (13.0-17.5) gm/dL Hct (39.0-53.0) % MCV (80.0-100.0) fL MCH (25.0-35.0) pg MCHC (31.0-37.0) g/dL RDW (11.5-15.5) % Plt Count (150-450) k/uL MPV Neutrophils % % Lymphocytes % % Monocytes % % Eosinophils % % Basophils % % Neutrophils # (1.3-7.7) k/uL Lymphocytes # (1.0-4.8) k/uL Monocytes # (0-1.0) k/uL Eosinophils # (0-0.7) k/uL Basophils # (0-0.2) k/uL Sodium (137-145) mmol/L Potassium (3.5-5.1) mmol/L Chloride (98-107) mmol/L Carbon Dioxide (22-30) mmol/L Anion Gap mmol/L BUN (9-20) mg/dL Creatinine (0.66-1.25) mg/dL Est GFR (CKD-EPI)AfAm (>60 ml/min/1.73 sqM) Est GFR (CKD-EPI)NonAf (>60 ml/min/1.73 sqM) Glucose (74-99) mg/dL Plasma Lactic Acid Christian 1.5 (0.7-2.0) mmol/L Calcium (8.4-10.2) mg/dL Total Bilirubin (0.2-1.3) mg/dL AST (17-59) U/L ALT (4-49) U/L Alkaline Phosphatase (38-126) U/L Troponin I <0.012 (0.000-0.034) ng/mL Total Protein (6.3-8.2) g/dL Albumin (3.5-5.0) g/dL Amylase (30-110) U/L Lipase (23-300) U/L Urine Color Urine Appearance (Clear) Urine pH (5.0-8.0) Ur Specific [place] (1.001-1.035) Urine Protein (Negative) Urine Glucose (UA) (Negative) Urine Ketones (Negative) Urine Blood (Negative) Urine Nitrite (Negative) Urine Bilirubin (Negative) Urine Urobilinogen (<2.0) mg/dL Ur Leukocyte Esterase (Negative) - EKG Data -: EKG Interpreted by Me EKG Comments: EKG performed at 9: 40 sinus rhythm with rate 80 WI 167 QRS 115 QT/QTc 338/374 Disposition Clinical Impression: Abdominal pain, Chest pain Disposition: HOME SELF-CARE Condition: Stable Instructions (If sedation given, give patient instructions): Gastritis (ED), Diet for Stomach Ulcers and Gastritis (ED) Additional Instructions: Please return to the Emergency Department if symptoms worsen or any other concerns. Prescriptions: Famotidine [Pepcid] 20 mg PO BID #28 tablet Metoclopramide [Reglan] 10 mg PO BID #14 tab Is patient prescribed a controlled substance at d/c from ED?: No Referrals: Raul Newby MD [Primary Care Provider] - 1-2 days Time of Disposition: 12:04
[2023-08-07 12:15] VITALS: BP 124/84; PULSE 77
[2023-08-07 12:53] VITALS: TEMP 98
== END 2023-08-07 12:22 | disposition home or self-care (01) ==
LOC: EC 09:11
DX: I45.10 Unspecified right bundle-branch block (principal); R10.9 Unspecified abdominal pain; I10 Essential (primary) hypertension; E78.5 Hyperlipidemia, unspecified; Z79.899 Other long term (current) drug therapy
CPT/HCPCS: 96374 ×2; 96375 ×2; 96361 ×3; 99285 ×2; 36415; 93005; 80053; 82150; 83605; 83690; 84484; 85025; 81003; 71046; 74018; 74177; J2765; J3490; Q9967

== ENCOUNTER 2023-08-15 22:02 | Emergency (ER) | payer BC ==
[2023-08-15 22:31] VITALS: BP 137/64; PULSE 121; RESP 20; TEMP 98.8
[2023-08-15 23:01] LABS: Appearance,Urine Clear (Clear); Bilirubin,Urine Negative (Negative); Blood,Urine Trace (Negative); Color,Urine Yellow; Glucose,Urine (UA) Negative (Negative); Hyaline Casts,Urine 1 /lpf (0-2); Ketones,Urine Negative (Negative); Leukocyte Esterase,Urine Negative (Negative); Mucus,Urine Few /hpf; Nitrite,Urine Negative (Negative); Protein,Urine 1+ (Negative); Specific Gravity,Urine 1.026 (1.001-1.035); WBC,Urine 1 /hpf (0-5)
--- NOTE | 2023-08-15 23:43 | ED ---
Abdominal Pain HPI - General Chief Complaint: Abdominal Pain Stated Complaint: abd pain abd pain Time Seen by Provider: 08/15/23 23:20 Source: patient, RN notes reviewed, old records reviewed Mode of arrival: ambulatory Limitations: no limitations - History of Present Illness Initial Comments: This is a 38-year-old male well-known to this emergency room coming in for evaluation of abdominal pain epigastric left upper quadrant abdominal pain into his left pharynx flank into his back recently diagnosed with gastroenteritis was feeling improved but currently feels worse. Patient has multiple hospital admissions with significant history of abdominal surgery and gallbladder removal. MD Complaint: abdominal pain -: days(s), week(s) Location: LUQ, epigastric, L flank Radiation: LUQ Migration to: epigastric, suprapubic Severity: moderate Severity scale (1-10): 7 Quality: fullness, sharp Consistency: intermittent Improves With: nothing Worsens With: nothing Associated Symptoms: nausea, vomiting Treatments Prior to Arrival: other (0) - Related Data Home Medications Medication Instructions Recorded Confirmed Anastrozole [Arimidex] 1 mg PO MOWEFR 03/10/21 03/23/21 Atorvastatin [Lipitor] 20 mg PO DAILY 03/10/21 03/23/21 Cephalexin [Keflex] 500 mg PO QID 03/10/21 03/23/21 Losartan Potassium 100 mg PO DAILY 03/10/21 03/23/21 Sulfamethox-Tmp 800-160Mg [Bactrim 1 tab PO BID 03/10/21 03/23/21 DS 800-160 mg] Testosterone Cypionate 200 mg IM Q14D 03/10/21 03/23/21 [Depo-Testosterone] hydroCHLOROthiazide 25 mg PO DAILY 03/10/21 03/23/21 Previous Rx's Medication Instructions Recorded Famotidine [Pepcid] 20 mg PO BID #28 tablet 08/07/23 Metoclopramide [Reglan] 10 mg PO BID #14 tab 08/07/23 Allergies Allergy/AdvReac Type Severity Reaction Status Date / Time No Known Allergies Allergy Verified 08/15/23 22:20 Review of Systems ROS Statement: Those systems with pertinent positive or pertinent negative responses have been documented in the HPI. ROS Other: All systems not noted in ROS Statement are negative. Past Medical History Past Medical History: Atrial Fibrillation, Hypertension, Sleep Apnea/CPAP/BIPAP Additional Past Medical History / Comment(s): HX OF HTN (NO CURRENT MEDS), kidney stone June 2016, History of Any Multi-Drug Resistant Organisms: None Reported Past Surgical History: Bariatric Surgery, Cardiac Ablation, Cholecystectomy Additional Past Surgical History / Comment(s): 02/28/15 gastric lap banding. lap band removal 117/ Past Anesthesia/Blood Transfusion Reactions: No Reported Reaction, Motion Sickness Past Psychological History: No Psychological Hx Reported Smoking Status: Never smoker Past Alcohol Use History: Occasional Past Drug Use History: None Reported - Past Family History Mother Family Medical History: Cancer Additional Family Medical History / Comment(s): LUNG CANCER-. Father Family Medical History: Hyperlipidemia, Hypertension General Exam Limitations: no limitations General appearance: alert, in no apparent distress Head exam: Present: atraumatic, normocephalic, normal inspection Eye exam: Present: normal appearance, PERRL, EOMI. Absent: scleral icterus, conjunctival injection, periorbital swelling ENT exam: Present: normal exam, mucous membranes moist Neck exam: Present: normal inspection. Absent: tenderness, meningismus, lymphadenopathy Respiratory exam: Present: normal lung sounds bilaterally. Absent: respiratory distress, wheezes, rales, rhonchi, stridor Cardiovascular Exam: Present: regular rate, normal rhythm, normal heart sounds. Absent: systolic murmur, diastolic murmur, rubs, gallop, clicks GI/Abdominal exam: Present: soft, normal bowel sounds. Absent: distended, tenderness, guarding, rebound, rigid Extremities exam: Present: normal inspection, full ROM, normal capillary refill. Absent: tenderness, pedal edema, joint swelling, calf tenderness Back exam: Present: normal inspection Neurological exam: Present: alert, oriented X3, CN II-XII intact Psychiatric exam: Present: normal affect, normal mood Skin exam: Present: warm, dry, intact, normal color. Absent: rash Course Vital Signs 08/15/23 22:17 Temperature 98.8 F Pulse Rate 121 H Respiratory 20 Rate Blood Pressure 137/64 O2 Sat by Pulse 93 L Oximetry - Reevaluation(s) Reevaluation #1: 08/15/23 23:42 Medical records reviewed Reevaluation #2: 08/16/23 02:05 Patient symptoms are improved here in the ER Reevaluation #3: 08/16/23 02:05 Patient informed of results and questions answered Reevaluation #4: Was pt. sent in by a medical professional or institution (, PA, AUTO TECHNICIAN, urgent care, hospital, or residential...) When possible be specific @ -no Did you speak to anyone other than the patient for history (EMS, parent, family, police, friend...)? What history was obtained from this source @ -no Did you review nursing and triage notes (agree or disagree)? Why? @ -agree Are old charts reviewed (outside hosp., previous admission, EMS record, old EKG, old radiological studies, urgent care reports/EKG's, residential records)? Report findings @ -yes Differential Diagnosis (chest pain, altered mental status, abdominal pain women, abdominal pain men, vaginal bleeding, weakness, fever, dyspnea, syncope, headache, dizziness, GI bleed, back pain, seizure, CVA, palpatations, mental health, musculoskeletal)? @ -prior EKG interpreted by me (3pts min.). @ -yes X-rays interpreted by me (1pt min.). @ -no CT interpreted by me (1pt min.). @ -yes negative for acute disease U/S interpreted by me (1pt. min.). @ -no What testing was considered but not performed or refused? (CT, X-rays, U/S, labs)? Why? @ -none What meds were considered but not given or refused? Why? @ -none Did you discuss the management of the patient with other professionals (professionals i.e. , MARIELA, AUTO TECHNICIAN, lab, RT, psych nurse, social service coordinator, mobility scooter repairer, teacher, ship officer, rn case manager)? Give summary @ -no Was smoking cessation discussed for >3mins.? @ -no Was critical care preformed (if so, how long)? @ -no Were there social determinants of health that impacted care today? How? (Homelessness, low income, unemployed, alcoholism, drug addiction, t ransportation, low edu. Level, literacy, decrease access to med. care, longterm, rehab)? @ -none Was there de-escalation of care discussed even if they declined (Discuss DNR or withdrawal of care, Hospice)? DNR status @ -no What co-morbidities impacted this encounter? (DM, HTN, Smoking, COPD, CAD, Can cer, CVA, ARF, Chemo, Hep., AIDS, mental health diagnosis, sleep apnea, morbid obesity)? @ -none Was patient admitted / discharged? Hospital course, mention meds given and route, prescriptions, significant lab abnormalities, going to OR and other pertinent info. @ - 38 male no acute findings for abdominal pain here in the emergency room, pain is well-controlled patient is resting comfortably and can be discharged home Discharge Undiagnosed new problem with uncertain prognosis? @ -no Drug Therapy requiring intensive monitoring for toxicity (Heparin, Nitro, Insulin, Cardizem)? @ -no Were any procedures done? @ -no Diagnosis/symptom? @ -Abdominal pain Acute, or Chronic, or Acute on Chronic? @ -Acute Uncomplicated (without systemic symptoms) or Complicated (systemic symptoms)? @ -Complicated Side effects of treatment? @ -no Exacerbation, Progression, or Severe Exacerbation? @ -exacerbation Poses a threat to life or bodily function? How? (Chest pain, USA, [place], pneumonia, PE, COPD, DKA, ARF, appy, cholecystitis, CVA, Diverticulitis, Homicidal, Suicidal, threat to staff... and all critical care pts) @ -no Reevaluation #5: Differential Abdominal Pain Men: Appendicitis, cholecystitis, diverticulosis, ischemic bowel, pancreatitis, hepatitis, UTI, gastroenteritis, AAA, incarcerated hernia, bowel obstruction, constipation, inflammatory bowel, hepatitis, peptic ulcer disease, splenic infarction, perforated viscus, testicular torsion, this is not meant to be an all-inclusive list Medical Decision Making - Medical Decision Making 38 male no acute findings for abdominal pain here in the emergency room, pain is well-controlled patient is resting comfortably and can be discharged home - Lab Data Result diagrams: 08/15/23 23:34 08/15/23 23:34 Lab Results 08/15/23 08/15/23 08/15/23 Range/Units 22:46 23:34 23:34 WBC 10.3 (3.8-10.6) k/uL RBC 6.13 H (4.30-5.90) m/uL Hgb 17.5 (13.0-17.5) gm/dL Hct 51.7 (39.0-53.0) % MCV 84.3 (80.0-100.0) fL MCH 28.5 (25.0-35.0) pg MCHC 33.8 (31.0-37.0) g/dL RDW 13.5 (11.5-15.5) % Plt Count 221 (150-450) k/uL MPV 9.3 Neutrophils % 77 % Lymphocytes % 12 % Monocytes % 8 % Eosinophils % 1 % Basophils % 0 % Neutrophils # 7.9 H (1.3-7.7) k/uL Lymphocytes # 1.3 (1.0-4.8) k/uL Monocytes # 0.8 (0-1.0) k/uL Eosinophils # 0.1 (0-0.7) k/uL Basophils # 0.0 (0-0.2) k/uL PT 11.0 (10.0-12.5) sec INR 1.0 (<1.2) APTT 24.7 (22.0-30.0) sec D-Dimer 0.22 (<0.60) mg/L FEU Sodium (137-145) mmol/L Potassium (3.5-5.1) mmol/L Chloride (98-107) mmol/L Carbon Dioxide (22-30) mmol/L Anion Gap mmol/L BUN (9-20) mg/dL Creatinine (0.66-1.25) mg/dL Est GFR (CKD-EPI)AfAm (>60 ml/min/1.73 sqM) Est GFR (CKD-EPI)NonAf (>60 ml/min/1.73 sqM) Glucose (74-99) mg/dL Calcium (8.4-10.2) mg/dL Phosphorus (2.5-4.5) mg/dL Magnesium (1.6-2.3) mg/dL Total Bilirubin (0.2-1.3) mg/dL AST (17-59) U/L ALT (4-49) U/L Alkaline Phosphatase (38-126) U/L Troponin I (0.000-0.034) ng/mL Total Protein (6.3-8.2) g/dL Albumin (3.5-5.0) g/dL Amylase (30-110) U/L Lipase (23-300) U/L Urine Color Yellow Urine Appearance Clear (Clear) Urine pH 6.0 (5.0-8.0) Ur Specific [place] 1.026 (1.001-1.035) Urine Protein 1+ H (Negative) Urine Glucose (UA) Negative (Negative) Urine Ketones Negative (Negative) Urine Blood Trace H (Negative) Urine Nitrite Negative (Negative) Urine Bilirubin Negative (Negative) Urine Urobilinogen 2.0 (<2.0) mg/dL Ur Leukocyte Esterase Negative (Negative) Urine WBC 1 (0-5) /hpf Hyaline Casts 1 (0-2) /lpf Urine Mucus Few H (None) /hpf 08/15/23 08/15/23 Range/Units 23:34 23:34 WBC (3.8-10.6) k/uL RBC (4.30-5.90) m/uL Hgb (13.0-17.5) gm/dL Hct (39.0-53.0) % MCV (80.0-100.0) fL MCH (25.0-35.0) pg MCHC (31.0-37.0) g/dL RDW (11.5-15.5) % Plt Count (150-450) k/uL MPV Neutrophils % % Lymphocytes % % Monocytes % % Eosinophils % % Basophils % % Neutrophils # (1.3-7.7) k/uL Lymphocytes # (1.0-4.8) k/uL Monocytes # (0-1.0) k/uL Eosinophils # (0-0.7) k/uL Basophils # (0-0.2) k/uL PT (10.0-12.5) sec INR (<1.2) APTT (22.0-30.0) sec D-Dimer (<0.60) mg/L FEU Sodium 136 L (137-145) mmol/L Potassium 4.1 (3.5-5.1) mmol/L Chloride 104 (98-107) mmol/L Carbon Dioxide 20 L (22-30) mmol/L Anion Gap 12 mmol/L BUN 16 (9-20) mg/dL Creatinine 0.82 (0.66-1.25) mg/dL Est GFR (CKD-EPI)AfAm >90 (>60 ml/min/1.73 sqM) Est GFR (CKD-EPI)NonAf >90 (>60 ml/min/1.73 sqM) Glucose 108 H (74-99) mg/dL Calcium 10.1 (8.4-10.2) mg/dL Phosphorus 3.3 (2.5-4.5) mg/dL Magnesium 1.5 L (1.6-2.3) mg/dL Total Bilirubin 1.3 (0.2-1.3) mg/dL AST 103 H (17-59) U/L ALT 191 H (4-49) U/L Alkaline Phosphatase 117 (38-126) U/L Troponin I <0.012 (0.000-0.034) ng/mL Total Protein 7.6 (6.3-8.2) g/dL Albumin 4.8 (3.5-5.0) g/dL Amylase 76 (30-110) U/L Lipase 80 (23-300) U/L Urine Color Urine Appearance (Clear) Urine pH (5.0-8.0) Ur Specific [place] (1.001-1.035) Urine Protein (Negative) Urine Glucose (UA) (Negative) Urine Ketones (Negative) Urine Blood (Negative) Urine Nitrite (Negative) Urine Bilirubin (Negative) Urine Urobilinogen (<2.0) mg/dL Ur Leukocyte Esterase (Negative) Urine WBC (0-5) /hpf Hyaline Casts (0-2) /lpf Urine Mucus (None) /hpf - Radiology Data Radiology results: report reviewed (CT abdomen pelvis negative for acute disease), image reviewed Disposition Clinical Impression: Abdominal pain Disposition: HOME SELF-CARE Condition: Fair Instructions (If sedation given, give patient instructions): Abdominal Pain (ED) Is patient prescribed a controlled substance at d/c from ED?: No Referrals: Alysa Ramírez DO [REFERRING] - 1-2 days Erasmo Larios MD [STAFF PHYSICIAN] - 1-2 days Time of Disposition: 02:30
[2023-08-15] MEDS: ONDANSETRON 4 MG/2 ML VIAL IVP STA (23:50)
[2023-08-15] MEDS: MORPHINE SULFATE 4 MG/ML SYRINGE IVP STA (23:51)
[2023-08-15] MEDS: PANTOPRAZOLE 40 MG/10 ML VIAL IVP STA (23:53)
[2023-08-16 00:21] LABS: ALT 191 U/L (4-49); AST 103 U/L (17-59); African American GFR (CKD) >90 (>60 ml/min/1.73 sqM); Albumin 4.8 g/dL (3.5-5.0); Alkaline Phosphatase 117 U/L (38-126); Amylase 76 U/L (30-110); Anion Gap 12 mmol/L; Blood Urea Nitrogen 16 mg/dL (9-20); Calcium 10.1 mg/dL (8.4-10.2); Carbon Dioxide 20 mmol/L (22-30); Chloride 104 mmol/L (98-107); Glucose 108 mg/dL (74-99); Lipase 80 U/L (23-300); Magnesium 1.5 mg/dL (1.6-2.3); Non-African American GFR(CKD) >90 (>60 ml/min/1.73 sqM); Phosphorus 3.3 mg/dL (2.5-4.5); Potassium 4.1 mmol/L (3.5-5.1); Sodium 136 mmol/L (137-145); Total Bilirubin 1.3 mg/dL (0.2-1.3); Total Protein 7.6 g/dL (6.3-8.2)
[2023-08-16 00:39] LABS: Partial Thromboplastin Time 24.7 sec (22.0-30.0)
[2023-08-16 01:06] LABS: Basophils % (A) 0 %; Eosinophils # (A) 0.1 k/uL (0-0.7); Eosinophils % (A) 1 %; HCT 51.7 % (39.0-53.0); HGB 17.5 gm/dL (13.0-17.5); Lymphocytes # (A) 1.3 k/uL (1.0-4.8); Lymphocytes % (A) 12 %; MCH 28.5 pg (25.0-35.0); MCHC 33.8 g/dL (31.0-37.0); MCV 84.3 fL (80.0-100.0); Mean Platelet Volume 9.3; Monocytes # (A) 0.8 k/uL (0-1.0); Monocytes % (A) 8 %; Neutrophils # (A) 7.9 k/uL (1.3-7.7); Neutrophils % (A) 77 %; Platelet Count 221 k/uL (150-450); RBC 6.13 m/uL (4.30-5.90); RDW 13.5 % (11.5-15.5); WBC 10.3 k/uL (3.8-10.6)
--- NOTE | 2023-08-16 01:19 | CT ---
EXAM: CT Angiography Chest With Intravenous Contrast CLINICAL HISTORY: ITS.REASON CT Reason: PAIN TECHNIQUE: Axial computed tomographic angiography images of the chest with intravenous contrast. CTDI is 41.25 mGy and DLP is 2632.2 mGy-cm. This CT exam was performed using one or more of the following dose reduction techniques: automated exposure control, adjustment of the mA and/or kV according to patient size, and/or use of iterative reconstruction technique. MIP reconstructed images were created and reviewed. COMPARISON: No relevant prior studies available. FINDINGS: Pulmonary arteries: Nondiagnostic CTA of the chest to exclude pulmonary embolism secondary to suboptimal opacification of the pulmonary arteries. Aorta: No acute findings. No thoracic aortic aneurysm. Lungs: Unremarkable. No mass. No consolidation. Pleural space: Unremarkable. No significant effusion. No pneumothorax. Heart: Unremarkable. No cardiomegaly. No significant pericardial effusion. No evidence of RV dysfunction. Bones/joints: No acute fracture. No dislocation. Soft tissues: Unremarkable. Lymph nodes: Unremarkable. No enlarged lymph nodes. Liver: Fatty infiltration of the liver. IMPRESSION: Nondiagnostic CTA of the chest to exclude pulmonary embolism secondary to suboptimal opacification of the pulmonary arteries.
--- NOTE | 2023-08-16 01:27 | CT ---
EXAM: CT Abdomen and Pelvis With Intravenous Contrast CLINICAL HISTORY: ITS.REASON CT Reason: PAIN TECHNIQUE: Axial computed tomography images of the abdomen and pelvis with intravenous contrast. CTDI is 41.25 mGy and DLP is 2632.2 mGy-cm. This CT exam was performed using one or more of the following dose reduction techniques: automated exposure control, adjustment of the mA and/or kV according to patient size, and/or use of iterative reconstruction technique. COMPARISON: 11/09/2018. FINDINGS: Lung bases: Unremarkable. No mass. No consolidation. ABDOMEN: Liver: Fatty infiltration of the liver. Gallbladder and bile ducts: Gallbladder has been removed. No ductal dilation. Pancreas: Unremarkable. No mass. No ductal dilation. Spleen: Unremarkable. No splenomegaly. Adrenals: Unremarkable. No mass. Kidneys and ureters: Unremarkable. No solid mass. No hydronephrosis. Stomach and bowel: Unremarkable. No obstruction. No mucosal thickening. PELVIS: Appendix: No findings to suggest acute appendicitis. Bladder: Unremarkable. No mass. Reproductive: Unremarkable as visualized. ABDOMEN and PELVIS: Intraperitoneal space: Unremarkable. No free air. No significant fluid collection. Bones/joints: No acute fracture. No dislocation. Soft tissues: Unremarkable. Vasculature: Unremarkable. No abdominal aortic aneurysm. Lymph nodes: Unremarkable. No enlarged lymph nodes. IMPRESSION: No acute findings in the abdomen or pelvis.
[2023-08-16] MEDS: MAGNESIUM OXIDE 400 MG TAB PO STA ×2 (02:37)
[2023-08-16] MEDS: MAGNESIUM SULFATE-D5W PMX 1 GM in DEXTROSE/WATER 1 100ML.BAG IVPB ONE (02:38)
[2023-08-16] MEDS: ONDANSETRON 4 MG ODT STARTER PACK 2 TAB BTL PO STA (03:53)
[2023-08-16] MEDS: traMADol 50 MG STARTER PACK 3 TAB BTL PO STA (03:53)
== END 2023-08-16 04:05 | disposition home or self-care (01) ==
LOC: EC 22:02
DX: R10.13 Epigastric pain (principal); R10.12 Left upper quadrant pain
CPT/HCPCS: 99284; 96365; 96375 ×3; 36415; 93005; 85379; 80053; 82150; 83690; 83735; 84100; 84484; 85025; 85610; 85730; 81001; 71275; 74177; J2270; J2405; J3475; S0119; C9113; Q9967